=== PATIENT | female | born 1930 | race Caucasian/White ===

== ENCOUNTER 2016-07-21 23:10 | Inpatient (IN) | payer MEDICARE, BC ==
--- NOTE | 2016-07-21 23:24 | ED ---
General Adult HPI - General Stated complaint: Uncontrollable Shaking Time Seen by Provider: 07/21/16 23:10 Source: patient, family, EMS, RN notes reviewed, old records reviewed Mode of arrival: EMS - History of Present Illness Initial comments: This is an 86-year-old female with a history of asymptomatic urinary tract infections who started having shaking episodes this morning and has gotten progressively worse throughout the day. She was brought in by EMS for evaluation. She has no nausea no vomiting fevers chills sweats abdominal pain or other symptoms last time she had associated urinary tract infection. - Related Data Home Medications Medication Instructions Recorded Confirmed Atorvastatin [Lipitor] 10 mg PO DAILY 06/06/15 06/06/15 Cholecalciferol [Vitamin D3] 1,000 unit PO DAILY 06/06/15 06/06/15 Furosemide [Lasix] 20 mg PO DAILY 06/06/15 06/07/15 Multivitamins, Thera [Multivitamin] 1 tab PO DAILY 06/06/15 06/06/15 [place]-3 Fatty Acids/Fish Oil [Fish 1 cap PO DAILY 06/06/15 06/06/15 Oil 1,000 mg Softgel] Citalopram Hydrobromide [CeleXA] 20 mg PO DAILY 06/07/15 06/07/15 Lisinopril [Prinivil] 20 mg PO DAILY 06/07/15 06/07/15 Previous Rx's Medication Instructions Recorded Atorvastatin [Lipitor] 20 mg PO DAILY tab 06/11/15 Bisacodyl [Dulcolax] 5 mg PO DAILY PRN #0 tablet. 06/11/15 Ensure 1 can PO BID-W/MEALS liquid 06/11/15 Folic Acid 1 mg PO DAILY@1200 tab 06/11/15 Levofloxacin [Levaquin] 500 mg PO DAILY #4 tab 06/11/15 Meclizine [Antivert] 12.5 mg PO TID PRN #0 06/11/15 Megestrol [Megace] 80 mg PO DAILY tab 06/11/15 Metoclopramide [Reglan] 5 mg PO ACHS #120 tab 06/11/15 Multivitamins, Thera [Multivitamin] 1 each PO DAILY@1200 tab 06/11/15 Pantoprazole [Protonix] 40 mg PO AC-BID tablet. 06/11/15 Thiamine [Vitamin B-1] 100 mg PO DAILY@1200 tab 06/11/15 amLODIPine [Norvasc] 5 mg PO BID tab 06/11/15 Allergies Allergy/AdvReac Type Severity Reaction Status Date / Time No Known Allergies Allergy Verified 07/21/16 23:24 Review of Systems ROS Statement: Those systems with pertinent positive or pertinent negative responses have been documented in the HPI. ROS Other: All systems not noted in ROS Statement are negative. Past Medical History Past Medical History: Heart Failure, Hyperlipidemia, Hypertension Additional Past Medical History / Comment(s): vertigo, breast ca, rt mastectomy History of Any Multi-Drug Resistant Organisms: None Reported Past Surgical History: Breast Surgery, Orthopedic Surgery Additional Past Surgical History / Comment(s): skin patch from neck for skin CA , rt mastectomy; left hip surgery; parathyroid surgery Past Anesthesia/Blood Transfusion Reactions: No Reported Reaction Past Psychological History: Anxiety, Depression Smoking Status: Former smoker Past Alcohol Use History: None Reported Past Drug Use History: None Reported - Past Family History Father Family Medical History: CVA/TIA Mother Family Medical History: No Reported History General Exam - General Exam Comments Initial Comments: This is a well-developed well-nourished awake alert oriented 3 female she is demonstrated evidence of riggors. General appearance: alert, in no apparent distress Head exam: Present: atraumatic, normocephalic, normal inspection Eye exam: Present: normal appearance, PERRL, EOMI. Absent: scleral icterus, conjunctival injection, periorbital swelling ENT exam: Present: normal exam, mucous membranes moist Neck exam: Present: normal inspection. Absent: tenderness, meningismus, lymphadenopathy Respiratory exam: Present: normal lung sounds bilaterally. Absent: respiratory distress, wheezes, rales, rhonchi, stridor Cardiovascular Exam: Present: regular rate, normal rhythm, normal heart sounds. Absent: systolic murmur, diastolic murmur, rubs, gallop, clicks GI/Abdominal exam: Present: soft, normal bowel sounds. Absent: distended, tenderness, guarding, rebound, rigid Extremities exam: Present: normal inspection, full ROM, normal capillary refill. Absent: tenderness, pedal edema, joint swelling, calf tenderness Back exam: Present: normal inspection Neurological exam: Present: alert, oriented X3, CN II-XII intact Psychiatric exam: Present: anxious Skin exam: Present: warm, dry, intact, normal color. Absent: rash Course Vital Signs 07/21/16 23:21 Temperature 98.0 F Pulse Rate 85 Respiratory 18 Rate Blood Pressure 154/94 O2 Sat by Pulse 94 L Oximetry Medical Decision Making - Medical Decision Making Patient is feeling somewhat better I did discuss findings with her and her family patient be admitted tonight for IV antibiotics and treatment of urinary tract infection with rigors - Lab Data Result diagrams: 07/22/16 00:01 07/22/16 00:01 Lab Results 07/22/16 07/22/16 07/22/16 Range/Units 00:01 00:01 00:01 WBC 4.9 (3.8-10.6) k/uL RBC 4.41 (3.80-5.40) m/uL Hgb 14.6 (11.4-16.0) gm/dL Hct 44.8 (34.0-46.0) % MCV 101.7 H (80.0-100.0) fL MCH 33.1 (25.0-35.0) pg MCHC 32.6 (31.0-37.0) g/dL RDW 12.3 (11.5-15.5) % Plt Count 212 (150-450) k/uL Neutrophils % 62 % Lymphocytes % 25 % Monocytes % 6 % Eosinophils % 3 % Basophils % 1 % Neutrophils # 3.0 (1.3-7.7) k/uL Lymphocytes # 1.2 (1.0-4.8) k/uL Monocytes # 0.3 (0-1.0) k/uL Eosinophils # 0.2 (0-0.7) k/uL Basophils # 0.0 (0-0.2) k/uL Sodium 141 (137-145) mmol/L Potassium 3.9 (3.5-5.1) mmol/L Chloride 107 (98-107) mmol/L Carbon Dioxide 27 (22-30) mmol/L Anion Gap 7 mmol/L BUN 11 (7-17) mg/dL Creatinine 0.60 (0.52-1.04) mg/dL Est GFR (MDRD) Af Amer >60 (>60 ml/min/1.73 sqM) Est GFR (MDRD) Non-Af >60 (>60 ml/min/1.73 sqM) Glucose 100 H (74-99) mg/dL Calcium 10.2 (8.4-10.2) mg/dL Magnesium 2.2 (1.6-2.3) mg/dL Total Bilirubin 0.7 (0.2-1.3) mg/dL AST 15 (14-36) U/L ALT 24 (9-52) U/L Alkaline Phosphatase 88 (38-126) U/L Total Creatine Kinase <20 L (30-135) U/L Total Protein 6.6 (6.3-8.2) g/dL Albumin 3.7 (3.5-5.0) g/dL Urine Color Urine Appearance (Clear) Urine pH (5.0-8.0) Ur Specific [place] (1.001-1.035) Urine Protein (Negative) Urine Glucose (UA) (Negative) Urine Ketones (Negative) Urine Blood (Negative) Urine Nitrate (Negative) Urine Bilirubin (Negative) Urine Urobilinogen (<2.0) mg/dL Ur Leukocyte Esterase (Negative) Urine RBC (0-5) /hpf Urine WBC (0-5) /hpf Urine Bacteria (None) /hpf Urine Yeast (Budding) (None) /hpf 07/22/16 Range/Units 00:01 WBC (3.8-10.6) k/uL RBC (3.80-5.40) m/uL Hgb (11.4-16.0) gm/dL Hct (34.0-46.0) % MCV (80.0-100.0) fL MCH (25.0-35.0) pg MCHC (31.0-37.0) g/dL RDW (11.5-15.5) % Plt Count (150-450) k/uL Neutrophils % % Lymphocytes % % Monocytes % % Eosinophils % % Basophils % % Neutrophils # (1.3-7.7) k/uL Lymphocytes # (1.0-4.8) k/uL Monocytes # (0-1.0) k/uL Eosinophils # (0-0.7) k/uL Basophils # (0-0.2) k/uL Sodium (137-145) mmol/L Potassium (3.5-5.1) mmol/L Chloride (98-107) mmol/L Carbon Dioxide (22-30) mmol/L Anion Gap mmol/L BUN (7-17) mg/dL Creatinine (0.52-1.04) mg/dL Est GFR (MDRD) Af Amer (>60 ml/min/1.73 sqM) Est GFR (MDRD) Non-Af (>60 ml/min/1.73 sqM) Glucose (74-99) mg/dL Calcium (8.4-10.2) mg/dL Magnesium (1.6-2.3) mg/dL Total Bilirubin (0.2-1.3) mg/dL AST (14-36) U/L ALT (9-52) U/L Alkaline Phosphatase (38-126) U/L Total Creatine Kinase (30-135) U/L Total Protein (6.3-8.2) g/dL Albumin (3.5-5.0) g/dL Urine Color Light Yellow Urine Appearance Cloudy H (Clear) Urine pH 7.0 (5.0-8.0) Ur Specific [place] 1.008 (1.001-1.035) Urine Protein Negative (Negative) Urine Glucose (UA) Negative (Negative) Urine Ketones Negative (Negative) Urine Blood Negative (Negative) Urine Nitrate Positive H (Negative) Urine Bilirubin Negative (Negative) Urine Urobilinogen <2.0 (<2.0) mg/dL Ur Leukocyte Esterase Small H (Negative) Urine RBC 2 (0-5) /hpf Urine WBC 14 H (0-5) /hpf Urine Bacteria Moderate H (None) /hpf Urine Yeast (Budding) Rare H (None) /hpf - Radiology Data Radiology results: image reviewed (Acute findings) Disposition Clinical Impression: Urinary tract infection, Rigors, Failure to thrive Disposition: ADMITTED IP TO THIS [facility] Condition: Stable
[2016-07-21] MEDS ORDERED: ACETAMINOPHEN IV (For NPO) 1,000 MG in SALINE 1 100ML.BAG IVPB STA (23:25)
[2016-07-21] MEDS ORDERED: LORazepam 2 MG/ML SYRINGE IV STA (23:44)
[2016-07-22 00:14] LABS: Basophils % (A) 1 %; CH 33.1; CHCM 32.7; Eosinophils # (A) 0.2 k/uL (0-0.7); Eosinophils % (A) 3 %; HCT 44.8 % (34.0-46.0); HDW 2.27; HGB 14.6 gm/dL (11.4-16.0); Luc # (Auto) 0.16; Luc % (Auto) 3; Lymphocytes # (A) 1.2 k/uL (1.0-4.8); Lymphocytes % (A) 25 %; MCH 33.1 pg (25.0-35.0); MCHC 32.6 g/dL (31.0-37.0); MCV 101.7 fL (80.0-100.0); Mean Platelet Volume 6.9; Monocytes # (A) 0.3 k/uL (0-1.0); Monocytes % (A) 6 %; Neutrophils % (A) 62 %; RBC 4.41 m/uL (3.80-5.40); RDW 12.3 % (11.5-15.5); WBC 4.9 k/uL (3.8-10.6); WBC (Perox) 5.01
[2016-07-22 00:17] LABS: Appearance,Urine Cloudy (Clear); Bacteria,Urine Moderate /hpf; Bilirubin,Urine Negative (Negative); Glucose,Urine (UA) Negative (Negative); Ketones,Urine Negative (Negative); Leukocyte Esterase,Urine Small (Negative); Nitrite,Urine Positive (Negative); Particle Count 56282; Protein,Urine Negative (Negative); RBC,Urine 2 /hpf (0-5); Specific Gravity,Urine 1.008 (1.001-1.035); UA Billing (MACRO vs. MICRO) MICRO; Urobilinogen,Urine <2.0 mg/dL (<2.0); WBC,Urine 14 /hpf (0-5)
[2016-07-22 00:26] LABS: ALT 24 U/L (9-52); AST 15 U/L (14-36); Alkaline Phosphatase 88 U/L (38-126); Anion Gap 7 mmol/L; Blood Urea Nitrogen 11 mg/dL (7-17); Calcium 10.2 mg/dL (8.4-10.2); Carbon Dioxide 27 mmol/L (22-30); Chloride 107 mmol/L (98-107); Glucose 100 mg/dL (74-99); Magnesium 2.2 mg/dL (1.6-2.3); Non-African American GFR(MDRD) >60 (>60 ml/min/1.73 sqM); Potassium 3.9 mmol/L (3.5-5.1); Sodium 141 mmol/L (137-145); Total Bilirubin 0.7 mg/dL (0.2-1.3); Total Protein 6.6 g/dL (6.3-8.2)
[2016-07-22 00:39] LABS: Creatine Kinase <20 U/L (30-135)
[2016-07-22] MEDS ORDERED: NALOXONE 0.4 MG/ML 1 ML VIAL IV PRN (00:48)
[2016-07-22] MEDS ORDERED: ONDANSETRON 4 MG/2 ML VIAL IVP PRN (00:48)
[2016-07-22] MEDS ORDERED: ACETAMINOPHEN TAB 325 MG TAB PO PRN (00:48)
[2016-07-22 00:49] LABS: Creatine Kinase MB <0.2 ng/mL (0.0-2.4)
[2016-07-22] MEDS ORDERED: MECLIZINE 12.5 MG TAB PO PRN (00:50)
[2016-07-22] MEDS ORDERED: SODIUM CHLORIDE 0.9% 1,000 ML IV SCH (01:00)
--- NOTE | 2016-07-22 01:14 | XR ---
EXAMINATION TYPE: XR chest 2V DATE OF EXAM: 07/22/2016 12:58 AM COMPARISON: 06/06/2015 HISTORY: Cough TECHNIQUE: Frontal and lateral views of the chest are obtained. FINDINGS: There is no heart failure nor confluent pneumonic infiltrate. Thoracic aorta is atheromato us. There are no hilar masses. There is some thoracic scoliotic curvature. There is no pleural effusi on. IMPRESSION: Atheromatous aorta. No active cardiopulmonary disease. Mild pulmonary fibrotic changes.
[2016-07-22 02:06] LABS: Glucose,Whole Blood 103 mg/dL (75-99)
[2016-07-22 02:18] VITALS: BMI 19.8
[2016-07-22] MEDS ORDERED: PANTOPRAZOLE 40 MG TABLET PO SCH (07:30)
[2016-07-22 07:41] LABS: Glucose,Whole Blood 81 mg/dL (75-99)
[2016-07-22 08:03] VITALS: BP 136/78; PULSE 60; RESP 17; TEMP 96.4
[2016-07-22] MEDS ORDERED: NON-FORMULARY DRUG (Omega-3 Fatty Acids/Fish Oil [Fish Oil 1,000 Mg Softgel] 1 CAP) PO SCH (09:00)
[2016-07-22] MEDS ORDERED: CITALOPRAM HYDROBROMIDE 20 MG TAB PO SCH (09:00)
[2016-07-22] MEDS ORDERED: amLODIPine 5 MG TAB PO SCH (09:00)
[2016-07-22] MEDS ORDERED: ATORVASTATIN 20 MG TAB PO SCH (09:00)
[2016-07-22] MEDS ORDERED: LISINOPRIL 20 MG TAB PO SCH (09:00)
[2016-07-22] MEDS ORDERED: ATORVASTATIN 10 MG TAB PO SCH (09:00)
[2016-07-22] MEDS ORDERED: MEGESTROL 40 MG TAB PO SCH (09:00)
[2016-07-22] MEDS ORDERED: FUROSEMIDE 20 MG TAB PO SCH (09:00)
[2016-07-22] MEDS ORDERED: FLUCONAZOLE 100 MG TAB PO ONE (11:47)
[2016-07-22] MEDS ORDERED: THIAMINE 100 MG TAB PO SCH (12:00)
[2016-07-22 12:10] LABS: Glucose,Whole Blood 127 mg/dL (75-99)
--- NOTE | 2016-07-22 12:41 | HP ---
This dictation is both H&P and Discharge Summary. DATE OF ADMISSION: Patient is a pleasant 86-year-old female, has significant asymptomatic urinary tract infections in the past, came in with complaints of shaking. Patient denied any fevers. Patient denied any dysuria. Patient denied any nausea or vomiting. Patient does have moderate to severe dementia. Patient's baseline is alert and oriented x2. Patient is now alert and oriented x2. Patient is afebrile. Patient does not have any leukocytosis. Minimally abnormal. I have very low suspicion of urinary tract infection. Patient's family has significant concerns about UTI, because of which I will give her benefit of doubt and give her 3 days and antibiotic but I still believe it is mostly asymptomatic bacteria. Patient has jenelle in the urine. I will give a dose of fluconazole. Patient probably has vaginal candidiasis and follow with the primary care physician as an outpatient. Patient does not have a Cardoso catheter at this point of time. I will give her 3 more days of Cipro completed a total 5-day course of therapy even if she has urinary tract infection, although as mentioned above, my suspicion is significantly low. Patient denied any cough. Chest x-ray did not show any significant abnormality and patient has a 24/7 help at the facility where she lives, because of which family wants her to go to the same place. Initially ordered PT and OT evaluation. Apparently, patient is doing well there with care she has there at the facility. ROS: All Other systems were reviewed and were negative. Patient will be discharged today and home medications include: 1. Atorvastatin. 2. Cholecalciferol. 3. Lasix. 4. Multivitamin. 5. [place]-3 fatty acids. 6. Citalopram. 7. Lisinopril. 8. Atorvastatin. 9. Bisacodyl. 10. Folic acid. 11. Meclizine. 12. Megestrol. 13. Metoclopramide. 14. Multivitamin. 15. Pantoprazole. 16. Thiamine. 17. Amlodipine. ALLERGIES: No known drug allergies. PAST MEDICAL HISTORY: Significant for congestive heart failure, hyperlipidemia, hypertension, back surgery, orthopedic surgery, anxiety, depression. Former smoker. Denied any alcohol abuse or any drug abuse. FAMILY HISTORY: CVA, TIA in the past. PHYSICAL EXAMINATION: VITAL SIGNS: Temperature 96.4, pulse of 60, respiratory rate of 17, blood pressure 136/78, saturating at 94% on room air. GENERAL: Alert and oriented x2, which is her baseline. No focal neurological deficits were appreciated. HEENT: Pupils are round and equally reacting to light. EOMI. No scleral icterus. No conjunctival pallor. Normocephalic, atraumatic. No pharyngeal erythema. No thyromegaly. CARDIOVASCULAR: S1 and S2 present. No murmurs, rubs, or gallops. PULMONARY: Chest is clear to auscultation, no wheezing or crackles. ABDOMEN: Soft, nontender, nondistended, normoactive bowel sounds. No palpable organomegaly. MUSCULOSKELETAL: No joint swelling or deformity. EXTREMITIES: No cyanosis, clubbing, or pedal edema. NEUROLOGICAL: Gross neurological examination did not reveal any focal deficits. SKIN: No rashes. LABORATORY DATA: CBC, CMP essentially within normal limits. UA showed mild positive nitrate and small leukocyte esterase, moderate bacteria and budding yeast. ASSESSMENT AND PLAN: 1. Possibility of urinary tract infection. Patient mostly has asymptomatic bacteria. My suspicion is significantly low for urinary tract infection but anyways because of the concerns of family, I will go ahead and give her 3 more days of antibiotic, Cipro. Patient has Escherichia coli in the past which is pansensitive. Although at the time, patient received levofloxacin and for budding yeast in the urine, I will give her a dose of fluconazole. I think patient has vaginal candidiasis. 2. Macrocytic anemia. I will obtain a B12 level. If needs, will give her a B12 injection which is pretty common in people of her age. 3. Moderate to severe dementia, supportive care and continue with home medication that is donepezil. 4. Hypertension. 5. Hyperlipidemia for which patient can continue her home medications. 6. Depression. Continue with Celexa. Patient's primary care physician, Dr. Deanna Ramirez. Patient will follow Dr. Ramirez in about 3 to 7 days. Activity as tolerated. Cardiac diet. MTDD
== END 2016-07-22 13:47 | disposition home health service (06) | DRG 690 ==
LOC: EC 23:10 → 4MS4W 07-22 00:48
PROVIDERS: ADMIT Internal Medicine; ATTEND Internal Medicine
DX: N39.0 Urinary tract infection, site not specified (principal); F03.90 Unspecified dementia, unspecified severity, without behavioral disturbance, psychotic disturbance, mood disturbance, and anxiety; I11.0 Hypertensive heart disease with heart failure; I50.9 Heart failure, unspecified; B37.3 Candidiasis of vulva and vagina; D53.9 Nutritional anemia, unspecified; F32.9 Major depressive disorder, single episode, unspecified; F41.9 Anxiety disorder, unspecified; R62.7 Adult failure to thrive; Z87.891 Personal history of nicotine dependence; Z87.440 Personal history of urinary (tract) infections; E78.5 Hyperlipidemia, unspecified; Z85.3 Personal history of malignant neoplasm of breast; Z90.11 Acquired absence of right breast and nipple; Z79.899 Other long term (current) drug therapy
CPT/HCPCS: 36415; 71020; 80053; 81001; 82550; 82553; 82607; 83735; 85025; 87040; 87077; 87086; 87186; 96365; 96375; 99285

== ENCOUNTER 2016-08-01 10:02 | Inpatient (IN) | payer MEDICARE, BC ==
[2016-08-01] MEDS ORDERED: SODIUM CHLORIDE 0.9% 1,000 ML IV STA (10:13)
[2016-08-01] MEDS ORDERED: LORazepam 2 MG/ML SYRINGE IV STA (10:14)
[2016-08-01] MEDS ORDERED: ACETAMINOPHEN IV (For NPO) 1,000 MG in EMPTY BAG 1 BAG IVPB STA (10:32)
--- NOTE | 2016-08-01 10:32 | ED ---
General Adult HPI - General Chief complaint: Recheck/Abnormal Lab/Rx Stated complaint: Tremors Time Seen by Provider: 08/01/16 10:04 Source: family, EMS, RN notes reviewed, old records reviewed Mode of arrival: EMS Limitations: no limitations - History of Present Illness Initial comments: This is an 86-year-old female the ER for evaluation, patient is currently in the ER for evaluation of rigors, tremors, weakness failure to thrive and dehydration. Patient brought in by EMS who were called by family for probable failure of outpatient treatment urinary tract infection. Patient has had episodic fever at home with nausea no vomiting and his decreased activity level. Patient did finish outpatient antibiotics for urinary checked infection. Rigors and tremor started today, patient is also on Celexa but has never had reactions in the past - Related Data Home Medications Medication Instructions Recorded Confirmed Multivitamins, Thera [Multivitamin] 1 tab PO DAILY 06/06/15 08/01/16 Citalopram Hydrobromide [CeleXA] 20 mg PO DAILY 06/07/15 08/01/16 Lisinopril [Prinivil] 20 mg PO DAILY 06/07/15 08/01/16 Donepezil HCl [Aricept] 5 mg PO DAILY 07/22/16 08/01/16 Cholecalciferol [Vitamin D3] 2,000 unit PO DAILY 08/01/16 08/01/16 Docusate [Colace] 100 mg PO DAILY 08/01/16 08/01/16 Meclizine HCl 12.5 mg PO TID PRN 08/01/16 08/01/16 Previous Rx's Medication Instructions Recorded amLODIPine [Norvasc] 5 mg PO BID tab 06/11/15 Allergies Allergy/AdvReac Type Severity Reaction Status Date / Time No Known Allergies Allergy Verified 08/01/16 11:02 Review of Systems ROS Statement: Those systems with pertinent positive or pertinent negative responses have been documented in the HPI. ROS Other: All systems not noted in ROS Statement are negative. Past Medical History Past Medical History: Heart Failure, Hyperlipidemia, Hypertension Additional Past Medical History / Comment(s): vertigo, breast ca, rt mastectomy History of Any Multi-Drug Resistant Organisms: None Reported Past Surgical History: Breast Surgery, Orthopedic Surgery Additional Past Surgical History / Comment(s): skin patch 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 Past Anesthesia/Blood Transfusion Reactions: No Reported Reaction Past Psychological History: Anxiety, Depression Smoking Status: Former smoker Past Alcohol Use History: None Reported Past Drug Use History: None Reported - Past Family History Father Family Medical History: CVA/TIA Mother Family Medical History: No Reported History General Exam Limitations: no limitations General appearance: alert, in no apparent distress, anxious, in distress, cachectic Head exam: Present: atraumatic, normocephalic, normal inspection Eye exam: Present: normal appearance, PERRL, EOMI. Absent: scleral icterus, conjunctival injection, periorbital swelling ENT exam: Present: normal exam, mucous membranes moist Neck exam: Present: normal inspection. Absent: tenderness, meningismus, lymphadenopathy Respiratory exam: Present: normal lung sounds bilaterally. Absent: respiratory distress, wheezes, rales, rhonchi, stridor Cardiovascular Exam: Present: regular rate, normal rhythm, normal heart sounds. Absent: systolic murmur, diastolic murmur, rubs, gallop, clicks GI/Abdominal exam: Present: soft, normal bowel sounds. Absent: distended, tenderness, guarding, rebound, rigid Extremities exam: Present: normal inspection, full ROM, normal capillary refill. Absent: tenderness, pedal edema, joint swelling, calf tenderness Back exam: Present: normal inspection Neurological exam: Present: alert, oriented X3, CN II-XII intact Psychiatric exam: Present: normal affect, normal mood Skin exam: Present: warm, dry, intact, normal color. Absent: rash Course Vital Signs 08/01/16 08/01/16 10:05 12:39 Temperature 100.0 F H 98.0 F Pulse Rate 76 61 Respiratory 16 16 Rate Blood Pressure 137/69 132/60 O2 Sat by Pulse 95 93 L Oximetry - Reevaluation(s) Reevaluation #1: 08/01/16 11:54 Patient does appear to be symptomatically improved at this time Medical Decision Making - Medical Decision Making 86 female in the ER for evaluation of rigors weakness not feeling well and failure to thrive. Patient recently diagnosed with urinary tract infection which caused her very similar symptoms. At this time although patient's infection does appear to be cleared up she does still of persistent fever and rigors from fever. Patient be admitted for fever control and symptomatic management as well as further evaluation of cause a fever. X-ray of fluor at this point negative - Lab Data Result diagrams: 08/01/16 11:17 08/01/16 10:50 Lab Results 08/01/16 08/01/16 08/01/16 Range/Units 10:50 10:50 11:17 WBC 5.0 (3.8-10.6) k/uL RBC 4.15 (3.80-5.40) m/uL Hgb 13.6 (11.4-16.0) gm/dL Hct 42.6 (34.0-46.0) % MCV 102.6 H (80.0-100.0) fL MCH 32.7 (25.0-35.0) pg MCHC 31.9 (31.0-37.0) g/dL RDW 12.2 (11.5-15.5) % Plt Count 206 (150-450) k/uL Neutrophils % 67 % Lymphocytes % 23 % Monocytes % 5 % Eosinophils % 2 % Basophils % 1 % Neutrophils # 3.3 (1.3-7.7) k/uL Lymphocytes # 1.1 (1.0-4.8) k/uL Monocytes # 0.3 (0-1.0) k/uL Eosinophils # 0.1 (0-0.7) k/uL Basophils # 0.0 (0-0.2) k/uL Macrocytosis Slight Sodium 142 (137-145) mmol/L Potassium 4.9 (3.5-5.1) mmol/L Chloride 108 H (98-107) mmol/L Carbon Dioxide 27 (22-30) mmol/L Anion Gap 7 mmol/L BUN 14 (7-17) mg/dL Creatinine 0.60 (0.52-1.04) mg/dL Est GFR (MDRD) Af Amer >60 (>60 ml/min/1.73 sqM) Est GFR (MDRD) Non-Af >60 (>60 ml/min/1.73 sqM) Glucose 87 (74-99) mg/dL Calcium 10.6 H (8.4-10.2) mg/dL Phosphorus 3.6 (2.5-4.5) mg/dL Magnesium 2.4 H (1.6-2.3) mg/dL Total Bilirubin 1.1 (0.2-1.3) mg/dL AST 23 (14-36) U/L ALT 18 (9-52) U/L Alkaline Phosphatase 74 (38-126) U/L Total Creatine Kinase 32 (30-135) U/L CK-MB (CK-2) <0.2 (0.0-2.4) ng/mL CK-MB (CK-2) Rel Index Total Protein 7.0 (6.3-8.2) g/dL Albumin 4.0 (3.5-5.0) g/dL Urine Color Urine Appearance (Clear) Urine pH (5.0-8.0) Ur Specific [place] (1.001-1.035) Urine Protein (Negative) Urine Glucose (UA) (Negative) Urine Ketones (Negative) Urine Blood (Negative) Urine Nitrate (Negative) Urine Bilirubin (Negative) Urine Urobilinogen (<2.0) mg/dL Ur Leukocyte Esterase (Negative) 08/01/16 Range/Units 11:40 WBC (3.8-10.6) k/uL RBC (3.80-5.40) m/uL Hgb (11.4-16.0) gm/dL Hct (34.0-46.0) % MCV (80.0-100.0) fL MCH (25.0-35.0) pg MCHC (31.0-37.0) g/dL RDW (11.5-15.5) % Plt Count (150-450) k/uL Neutrophils % % Lymphocytes % % Monocytes % % Eosinophils % % Basophils % % Neutrophils # (1.3-7.7) k/uL Lymphocytes # (1.0-4.8) k/uL Monocytes # (0-1.0) k/uL Eosinophils # (0-0.7) k/uL Basophils # (0-0.2) k/uL Macrocytosis Sodium (137-145) mmol/L Potassium (3.5-5.1) mmol/L Chloride (98-107) mmol/L Carbon Dioxide (22-30) mmol/L Anion Gap mmol/L BUN (7-17) mg/dL Creatinine (0.52-1.04) mg/dL Est GFR (MDRD) Af Amer (>60 ml/min/1.73 sqM) Est GFR (MDRD) Non-Af (>60 ml/min/1.73 sqM) Glucose (74-99) mg/dL Calcium (8.4-10.2) mg/dL Phosphorus (2.5-4.5) mg/dL Magnesium (1.6-2.3) mg/dL Total Bilirubin (0.2-1.3) mg/dL AST (14-36) U/L ALT (9-52) U/L Alkaline Phosphatase (38-126) U/L Total Creatine Kinase (30-135) U/L CK-MB (CK-2) (0.0-2.4) ng/mL CK-MB (CK-2) Rel Index Total Protein (6.3-8.2) g/dL Albumin (3.5-5.0) g/dL Urine Color Yellow Urine Appearance Clear (Clear) Urine pH 6.0 (5.0-8.0) Ur Specific [place] 1.012 (1.001-1.035) Urine Protein Negative (Negative) Urine Glucose (UA) Negative (Negative) Urine Ketones Negative (Negative) Urine Blood Negative (Negative) Urine Nitrate Negative (Negative) Urine Bilirubin Negative (Negative) Urine Urobilinogen <2.0 (<2.0) mg/dL Ur Leukocyte Esterase Negative (Negative) - Radiology Data Radiology results: report reviewed (Chest x-ray negative for acute disease), image reviewed Disposition Clinical Impression: Weakness, Rigors, Hypercalcemia, Hypermagnesemia Disposition: ADMITTED IP TO THIS [facility] Condition: Fair
[2016-08-01] MEDS ORDERED: KETOROLAC 30 MG/ML 1 ML VIAL IVP STA (11:05)
[2016-08-01 11:17] LABS: ALT 18 U/L (9-52); AST 23 U/L (14-36); Alkaline Phosphatase 74 U/L (38-126); Anion Gap 7 mmol/L; Blood Urea Nitrogen 14 mg/dL (7-17); Calcium 10.6 mg/dL (8.4-10.2); Carbon Dioxide 27 mmol/L (22-30); Chloride 108 mmol/L (98-107); Glucose 87 mg/dL (74-99); Magnesium 2.4 mg/dL (1.6-2.3); Non-African American GFR(MDRD) >60 (>60 ml/min/1.73 sqM); Phosphorous 3.6 mg/dL (2.5-4.5); Potassium 4.9 mmol/L (3.5-5.1); Sodium 142 mmol/L (137-145); Total Bilirubin 1.1 mg/dL (0.2-1.3)
[2016-08-01 11:27] LABS: Creatine Kinase 32 U/L (30-135)
[2016-08-01 11:34] LABS: Basophils % (A) 1 %; CH 32.5; CHCM 31.8; Eosinophils # (A) 0.1 k/uL (0-0.7); Eosinophils % (A) 2 %; HCT 42.6 % (34.0-46.0); HDW 2.15; HGB 13.6 gm/dL (11.4-16.0); Luc # (Auto) 0.14; Luc % (Auto) 3; Lymphocytes # (A) 1.1 k/uL (1.0-4.8); Lymphocytes % (A) 23 %; MCH 32.7 pg (25.0-35.0); MCHC 31.9 g/dL (31.0-37.0); MCV 102.6 fL (80.0-100.0); Macrocytosis Slight; Mean Platelet Volume 6.7; Monocytes # (A) 0.3 k/uL (0-1.0); Monocytes % (A) 5 %; Neutrophils # (A) 3.3 k/uL (1.3-7.7); Neutrophils % (A) 67 %; RBC 4.15 m/uL (3.80-5.40); RDW 12.2 % (11.5-15.5); WBC (Perox) 5.25
[2016-08-01 11:37] LABS: Creatine Kinase MB <0.2 ng/mL (0.0-2.4)
[2016-08-01 11:51] LABS: Appearance,Urine Clear (Clear); Bilirubin,Urine Negative (Negative); Glucose,Urine (UA) Negative (Negative); Ketones,Urine Negative (Negative); Leukocyte Esterase,Urine Negative (Negative); Nitrite,Urine Negative (Negative); Protein,Urine Negative (Negative); Specific Gravity,Urine 1.012 (1.001-1.035); UA Billing (MACRO vs. MICRO) CHEM; Urobilinogen,Urine <2.0 mg/dL (<2.0)
[2016-08-01] MEDS ORDERED: SODIUM CHLORIDE 0.9% 1,000 ML IV ONE (11:57)
--- NOTE | 2016-08-01 13:13 | XR ---
EXAMINATION TYPE: XR chest 2V DATE OF EXAM: 08/01/2016 1:06 PM COMPARISON: Two-view chest x-ray July 22, 2016 HISTORY: Tremors and chest pain. TECHNIQUE: Frontal and lateral views of the chest are obtained. FINDINGS: There is chronic senescent change without suspicious air space opacity, pleural effusion, or pneumothorax seen. The cardiac silhouette size is enlarged with atherosclerotic and ectatic thora cic aorta. The osseous structures are demineralized. Underlying scoliosis is redemonstrated. High r iding right humeral head suggests chronic rotator cuff tear. Numerous surgical clips over left chest are redemonstrated. IMPRESSION: Chronic changes and cardiomegaly without acute pulmonary process. No significant change from prior.
[2016-08-01] MEDS ORDERED: LORazepam 2 MG/ML SYRINGE IV PRN (13:15)
[2016-08-01] MEDS ORDERED: diphenhydrAMINE 50 MG/ML 1 ML VIAL IVP PRN (13:15)
[2016-08-01] MEDS ORDERED: MECLIZINE 12.5 MG TAB PO PRN (16:16)
[2016-08-01] MEDS: amLODIPine 5 MG TAB PO SCH (20:53)
[2016-08-02] MEDS: amLODIPine 5 MG TAB PO SCH ×2 (08:42→21:29)
[2016-08-02] MEDS: LISINOPRIL 20 MG TAB PO SCH (08:43)
[2016-08-02] MEDS: ENOXAPARIN 40 MG/0.4 ML SYRINGE SQ SCH (08:43)
[2016-08-02] MEDS ORDERED: DONEPEZIL 5 MG TAB PO SCH (09:00)
[2016-08-02] MEDS ORDERED: CHOLECALCIFEROL 1,000 UNIT TAB PO SCH (09:00)
[2016-08-02] MEDS ORDERED: CITALOPRAM HYDROBROMIDE 20 MG TAB PO SCH (09:00)
[2016-08-02] MEDS ORDERED: DOCUSATE 100 MG CAP PO SCH (09:00)
[2016-08-02 10:40] VITALS: BMI 21.7
[2016-08-02] MEDS: MULTIVITAMINS, THERA 1 EACH TAB PO SCH (11:57)
[2016-08-02] MEDS: PRIMIDONE 25 MG TAB PO SCH ×3 (12:54→21:29)
--- NOTE | 2016-08-02 15:23 | HP ---
DATE OF ADMISSION: 08/01/2016 PRESENTING COMPLAINT: Restless shaking. HISTORY OF PRESENTING COMPLAINT: This is an 86-year-old patient of Dr. Ramirez. The patient was recently in the hospital and treated for UTI and did complete a course of antibiotics. The patient has a history of dementia, hypertension, hyperlipidemia, depression. Patient lives at [facility]. Patient has been having some episodes where she is shaking. She is more like what is described as jittery. The patient is able to talk comfortably, She is rather confused, but she is fully alert and awake. The patient's UA came back negative. She was empirically put in the ER on IV antibiotics. The patient's appetite is good. Denies any obvious pain. When answering questions she drifts off easily. REVIEW OF SYSTEMS: CONSTITUTIONAL: Tired. HEENT: None. RESPIRATORY: None. CARDIOVASCULAR: None. GASTROINTESTINAL: None. GENITOURINARY: None. MUSCULOSKELETAL: Some pain in the joints. DERMATOLOGICAL: Dry skin. HEMATOLOGICAL: None. LYMPHATICS: None. PSYCHIATRY: Forgetful. NEUROLOGICAL: Just generalized shaking. INVESTIGATIONS: White count 5, hemoglobin 10.6, potassium 4.9. BUN and creatinine are normal. UA is negative. Influenza negative. Chest x-ray shows some chronic changes. ASSESSMENT: 1. Advancing Alzheimer's dementia, late onset type, maybe with some psychosis as she is finding people around. 2. Essential hypertension. 3. Hyperlipidemia. 4. Depression, not otherwise specified. 5. Akathisia. HOME MEDICATIONS: 1. Colace 100 mg a day. 2. Vitamin D3 2000 units a day. 3. Multivitamin 1 tablet p.o. daily. 4. Celexa 20 mg p.o. daily. 5. Meclizine 12.5 p.o. t.i.d. p.r.n. 6. Prinivil 20 mg p.o. daily. 7. Aricept 5 mg p.o. daily. 8. Norvasc 5 mg p.o. b.i.d. ALLERGIES: None. PLAN: Patient's home medications will be continued. Will discontinue the Colace. Will also DC the meclizine and the Aricept. That may be having effects of the anticholinergic effect. Will try some primidone. 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 Patient did tolerate her breakfast.
[2016-08-02] MEDS: QUEtiapine 25 MG TAB PO SCH (21:30)
[2016-08-03] MEDS: ENOXAPARIN 40 MG/0.4 ML SYRINGE SQ SCH (10:48)
[2016-08-03] MEDS: PRIMIDONE 25 MG TAB PO SCH ×3 (10:49→21:00)
[2016-08-03] MEDS: amLODIPine 5 MG TAB PO SCH ×2 (10:49→20:21)
[2016-08-03] MEDS: MULTIVITAMINS, THERA 1 EACH TAB PO SCH (10:49)
[2016-08-03] MEDS: LISINOPRIL 20 MG TAB PO SCH (10:49)
[2016-08-03] MEDS: FUROSEMIDE 40 MG TAB PO SCH (19:03)
[2016-08-03] MEDS: SODIUM CHLORIDE 0.9% 1,000 ML IV SCH (19:04)
--- NOTE | 2016-08-03 19:08 | PN ---
DATE OF SERVICE: 08/03/2016 Presenting complaint: Restlessness. INTERVAL HISTORY: This is a patient presented with increasing confusion, ( ) restlessness, and I started the patient yesterday on primidone, with shaking is improved. The patient had underlying dementia and coronary disorder. The patient's two daughters at the bedside. Review of systems done for constitutional, cardiovascular, GI and pulmonary. The patient is eating well. Current medications are reviewed that include Mysoline and Seroquel at night. On examination, temperature 98, pulse 99, respiratory rate 20, blood pressure 101/69, pulse ox 93% on 2 liters. GENERAL APPEARANCE: Lying in bed, more comfortable. EYES: Pupils equal. Conjunctivae normal. NECK: JVD not raised. Mass not palpable. RESPIRATORY: Effort normal. LUNGS: Clear. CARDIOVASCULAR: First and second sounds normal. No edema. ABDOMEN: Soft, nontender. PSYCHIATRY: Patient is confused. NEUROLOGICAL: More rested. INVESTIGATIONS: Patient's ionized calcium has come back as 6. ASSESSMENT: 1. Hypercalcemia talking to family, patient does seem to have a history of hyperparathyroidism and this could manifest as cognitive dysfunction. 2. Advancing Alzheimer's dementia, late onset type, some element of psychosis. 3. Essential hypertension. 4. Hyperlipidemia. 5. Depression, not otherwise specified. 6. ( ) improving with methadone. PLAN: Will start the patient on IV fluids, 125 mL an hour with Lasix that has helped to get the calcium down. We will also consult Dr. Leslie Ruiz who did prior surgery. Patient's family not sure if hyperparathyroidism is corrected. Will also check patient's parathyroid hormone level along with a phosphorus level to aide in the primary secondary diagnosis if true. Patient family does say that patient has not been taking vitamin supplementation. Care was discussed in detail. Check labs in the morning.
--- NOTE | 2016-08-03 20:08 | P.GSCN ---
History of Present Illness Consult date: 08/03/16 Reason for Consult: Elevated calcium History of present illness: the patient is an 86-year-old white female who recently was noted to have shaking. She was recently treated for a UTI and completed a course of antibiotics. She has a history of dementia and depression hypertension and hyperlipidemia. She lives at [facility] . She recently came back to the hospital secondary to shaking. The patient is unable to give a history. Review of Systems ROS unobtainable: due to mental status - Constitutional Constitutional Comment(s): Shaking - Cardiovascular Reports as per HPI - Respiratory Reports as per HPI - Gastrointestinal Reports as per HPI - Genitourinary Genitourinary: Reports as per HPI - Neurological Neurologic Comment(s): depressions/shaking - Endocrine Endocrine Comment(s): States many years ago had a neck surgery presumably for hyperparathyroidism Past Medical History Past Medical History: Heart Failure, Hyperlipidemia, Hypertension Additional Past Medical History / Comment(s): vertigo, breast ca, rt mastectomy History of Any Multi-Drug Resistant Organisms: None Reported Past Surgical History: Breast Surgery, Orthopedic Surgery Additional Past Surgical History / Comment(s): skin patch 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 Past Anesthesia/Blood Transfusion Reactions: No Reported Reaction Past Psychological History: Anxiety, Depression Additional Psychological History / Comment(s): Pt resides at [facility] Living in an apartment. She has [facility] home care. Her daughters come over daily and give her lunch and shower her. She has an aide in the morning twice a day. She has a 4 wheeled walker to ambulate. Her family takes her to [facility]. She is also receiving OT/PT and nursing. Smoking Status: Former smoker Past Alcohol Use History: None Reported Additional Past Alcohol Use History / Comment(s): Pt was a "social smoker". She quit smoking in 1966. Past Drug Use History: None Reported - Past Family History Father Family Medical History: CVA/TIA Additional Family Medical History / Comment(s): Father of a CVA in his mid to late 70's. Mother Family Medical History: No Reported History Additional Family Medical History / Comment(s): Mother was healthy and lived to be 87/88 yrs old. Medications and Allergies Home Medications Medication Instructions Recorded Confirmed Type Multivitamins, Thera [Multivitamin] 1 tab PO DAILY 06/06/15 08/01/16 History Citalopram Hydrobromide [CeleXA] 20 mg PO DAILY 06/07/15 08/01/16 History Lisinopril [Prinivil] 20 mg PO DAILY 06/07/15 08/01/16 History Donepezil HCl [Aricept] 5 mg PO DAILY 07/22/16 08/01/16 History Cholecalciferol [Vitamin D3] 2,000 unit PO DAILY 08/01/16 08/01/16 History Docusate [Colace] 100 mg PO DAILY 08/01/16 08/01/16 History Meclizine HCl 12.5 mg PO TID PRN 08/01/16 08/01/16 History Allergies Allergy/AdvReac Type Severity Reaction Status Date / Time No Known Allergies Allergy Verified 08/01/16 11:02 Surgical - Exam Vital Signs Temp Pulse Resp BP Pulse Ox 100.0 F H 76 16 155/111 95 08/01/16 10:05 08/01/16 10:05 08/01/16 10:05 08/01/16 10:05 08/01/16 10:05 - General no distress, cachectic - Eyes normal ocular movement - ENT normal pinna, normal nares - Neck no masses, trachea midline, no lymphadectomy - Respiratory normal expansion, normal respiratory effort, clear to auscultation - Cardiovascular Rhythm: regular Heart Sounds: normal: S1, S2 - Abdomen Abdomen: soft, non tender - Psychiatric Unable to give history Results - Labs 08/01/16 11:17 08/01/16 10:50 Abnormal Lab Results - Last 24 Hours (Table) 08/03/16 Range/Units 07:46 Ionized Calcium Yobani 6.0 H* (4.5-5.3) mg/dL Calcium panel 08/03/16 08/03/16 Range/Units 07:46 07:46 Ionized Calcium Yobani 6.0 H* (4.5-5.3) mg/dL Phosphorus 3.0 (2.5-4.5) mg/dL Assessment and Plan Plan: Impression/plan: 1. 86-year-old patient admitted with shaking 2. Dementia 3. History of parathyroid disease in the past at this time calcium 10.6 and ionized calcium 6 Plan: 1. Right attempt to obtain operative reports 2. We will obtain parathyroid hormone level 3. Will follow with you
[2016-08-03] MEDS: QUEtiapine 25 MG TAB PO SCH (20:21)
[2016-08-04] MEDS: SODIUM CHLORIDE 0.9% 1,000 ML IV SCH ×3 (04:06→19:36)
[2016-08-04 08:59] LABS: ALT 20 U/L (9-52); AST 16 U/L (14-36); Alkaline Phosphatase 47 U/L (38-126); Anion Gap 7 mmol/L; Blood Urea Nitrogen 16 mg/dL (7-17); Calcium 9.5 mg/dL (8.4-10.2); Carbon Dioxide 24 mmol/L (22-30); Chloride 111 mmol/L (98-107); Glucose 88 mg/dL (74-99); Non-African American GFR(MDRD) >60 (>60 ml/min/1.73 sqM); Sodium 142 mmol/L (137-145); Total Bilirubin 0.6 mg/dL (0.2-1.3); Total Protein 5.5 g/dL (6.3-8.2)
[2016-08-04] MEDS: PRIMIDONE 25 MG TAB PO SCH ×2 (10:10→17:09)
[2016-08-04] MEDS: amLODIPine 5 MG TAB PO SCH ×2 (10:11→20:09)
[2016-08-04] MEDS: FUROSEMIDE 40 MG TAB PO SCH (10:11)
[2016-08-04] MEDS: LISINOPRIL 20 MG TAB PO SCH (10:11)
[2016-08-04] MEDS: ENOXAPARIN 40 MG/0.4 ML SYRINGE SQ SCH (10:11)
[2016-08-04] MEDS: MULTIVITAMINS, THERA 1 EACH TAB PO SCH (14:43)
[2016-08-04] MEDS: QUEtiapine 25 MG TAB PO SCH (20:09)
[2016-08-05] MEDS: SODIUM CHLORIDE 0.9% 1,000 ML IV SCH ×3 (02:45→16:20)
--- NOTE | 2016-08-05 08:20 | PN ---
DATE OF SERVICE: 08/04/2016 PRESENTING COMPLAINT: Hypercalcemia. INTERVAL HISTORY: This patient presented with increasing confusion, restlessness, found to be hypercalcemic. The patient is started on IV fluids and calcium. Two daughters at the bedside. The patient cognitive function is somewhat better per the daughter. Patient is put on primidone, doing better with that. Review of systems done for constitutional, cardiovascular, GI, pulmonary; relevant findings as above. ( ). On examination, temperature 98.1, pulse 54, respiration 18, blood pressure 139/70, pulse ox 95% on room air. GENERAL APPEARANCE: Lying in bed, more comfortable. EYES: Pupils equal. Conjunctivae normal. NECK: JVD not raised. Mass not palpable. RESPIRATORY: Effort normal. Lungs are clear. CARDIOVASCULAR: First and second sounds normal. No edema. ABDOMEN: Soft. PSYCHIATRY: Patient is less confused today, more restful. NEUROLOGICAL: No tremors. INVESTIGATIONS: Calcium 9.5. ASSESSMENT: 1. Hypercalcemia causing, pulmonary dysfunction, actually improving. 2. Advance Alzheimer's dementia, late onset type. 3. Essential hypertension. 4. Hyperlipidemia. 5. Depression, not otherwise specified. 6. Tremors improved with Primidone. I had a long talk with the patient and family at the bedside. Dr. Leslie Woodall will give information about if parathyroid ( ) surgery was done. Check ( ) calcium tomorrow morning. Will stop the Primidone and see if the tremors are related to the hypercalcemia or if Primidone is actually needed. Continue with current IV fluids and follow.
[2016-08-05 09:45] LABS: Ionized Calcium 5.7 mg/dL (4.5-5.3)
[2016-08-05] MEDS: ENOXAPARIN 40 MG/0.4 ML SYRINGE SQ SCH (10:16)
[2016-08-05] MEDS: FUROSEMIDE 40 MG TAB PO SCH ×2 (10:16→18:22)
[2016-08-05] MEDS: LISINOPRIL 20 MG TAB PO SCH (10:16)
[2016-08-05] MEDS: MULTIVITAMINS, THERA 1 EACH TAB PO SCH (10:16)
[2016-08-05] MEDS: amLODIPine 5 MG TAB PO SCH ×2 (10:17→21:38)
[2016-08-05 10:20] LABS: ALT 21 U/L (9-52); AST 30 U/L (14-36); Alkaline Phosphatase 49 U/L (38-126); Anion Gap 7 mmol/L; Blood Urea Nitrogen 13 mg/dL (7-17); Calcium 9.2 mg/dL (8.4-10.2); Carbon Dioxide 22 mmol/L (22-30); Chloride 111 mmol/L (98-107); Glucose 80 mg/dL (74-99); Non-African American GFR(MDRD) >60 (>60 ml/min/1.73 sqM); Sodium 140 mmol/L (137-145); Total Bilirubin 0.8 mg/dL (0.2-1.3); Total Protein 5.5 g/dL (6.3-8.2)
--- NOTE | 2016-08-05 10:37 | P.PN ---
Subjective 86-year-old female being seen with the surgical attending in rounds this morning. Patient's resting in bed. Patient's pleasant cooperative taking a diet. Patient states "look my hands are not shaking anymore" patient's being followed by surgical service at the request of the attending for a surgical eval. Patient does have a history of a parathyroid disease. Patient is not aware of when she had the parathyroidectomy done in the past. Operative reports have not been able to be obtained. The parathyroid level was 63.3 drawn on August 03. Calcium levels 9.2 this morning Objective - Vital Signs Vital signs: Vital Signs Temp 97.3 F L 08/05/16 07:00 Pulse 67 08/05/16 07:00 Resp 16 08/05/16 07:00 BP 113/56 08/05/16 07:00 Pulse Ox 95 08/05/16 07:00 Intake & Output 08/04/16 08/05/16 08/05/16 18:59 06:59 18:59 Intake Total 300 Balance 300 Weight 53 kg Intake: Oral 300 Other: Voiding Method Bedside Commode Diaper Diaper Incontinent Incontinent # Voids 3 2 # Bowel Movements 1 - Exam Physical exam 86-year-old female sitting up in bed taking a diet pleasant oriented to self only Lungs essentially clear on room air Heart S1-S2 audible regular Abdomen soft nontender reports no nausea vomiting Extremities no evidence of any tremors noted no edema noted moves all extremities appropriately - Labs CBC & Chem 7: 08/01/16 11:17 08/05/16 07:58 Labs: Abnormal Lab Results - Last 24 Hours (Table) 08/05/16 Range/Units 07:58 Chloride 111 H (98-107) mmol/L Creatinine 0.50 L (0.52-1.04) mg/dL Ionized Calcium Yobani 5.7 H (4.5-5.3) mg/dL Total Protein 5.5 L (6.3-8.2) g/dL Albumin 2.8 L (3.5-5.0) g/dL Assessment and Plan Plan: Impression Dementia with no behavior disturbance History of parathyroid disease Parathyroid level obtained on August 03 63.3 within the normal range Ionize calcium level drawn on the 5.7 Recent treatment for a UTI Depressive disorder nonspecified Essential hypertension Hypercalcemia Plan Attempt to obtain old records regards to information about parathyroid surgery was done agree with stopping the primidone Continue IV fluid further recommendations pending no evidence of any acute surgical intervention at this time Will follow-up on pending labs The above dictated assessment and findings were discussed with Dr. Janice Woodall. Impression and the plan of care have been dictated as directed. [place] nurse practitioner acting as a scribe for Dr. Dejesus
--- NOTE | 2016-08-05 10:39 | P.PN ---
Subjective 86-year-old female being seen with the surgical attending in rounds this morning. Patient's resting in bed. Patient's pleasant cooperative taking a diet. Patient states "look my hands are not shaking anymore" no tremors noted patient's being followed by surgical service at the request of the attending for a surgical eval. Patient does have a history of a parathyroid disease. Patient is not aware of when she had the parathyroidectomy done in the past. Operative reports have not been able to be obtained. The parathyroid level was 63.3 drawn on August 03. Calcium levels 9.2 this morning Objective - Vital Signs Vital signs: Vital Signs Temp 97.3 F L 08/05/16 07:00 Pulse 67 08/05/16 08:00 Resp 16 08/05/16 08:00 BP 113/56 08/05/16 07:00 Pulse Ox 95 08/05/16 07:00 Intake & Output 08/04/16 08/05/16 08/05/16 18:59 06:59 18:59 Intake Total 300 Balance 300 Weight 53 kg Intake: Oral 300 Other: Voiding Method Bedside Commode Diaper Diaper Diaper Incontinent Incontinent Incontinent # Voids 3 2 # Bowel Movements 1 - Exam Physical exam 86-year-old female sitting up in bed taking a diet pleasant oriented to self only Lungs essentially clear on room air Heart S1-S2 audible regular Abdomen soft nontender reports no nausea vomiting Extremities no evidence of any tremors noted no edema noted moves all extremities appropriately - Labs CBC & Chem 7: 08/01/16 11:17 08/05/16 07:58 Labs: Abnormal Lab Results - Last 24 Hours (Table) 08/05/16 Range/Units 07:58 Chloride 111 H (98-107) mmol/L Creatinine 0.50 L (0.52-1.04) mg/dL Ionized Calcium Yobani 5.7 H (4.5-5.3) mg/dL Total Protein 5.5 L (6.3-8.2) g/dL Albumin 2.8 L (3.5-5.0) g/dL
[2016-08-05] MEDS ORDERED: SODIUM CHLORIDE 0.9% 250 ML with PAMIDRONATE 30 MG IV ONE ×2 (19:00)
[2016-08-05] MEDS: QUEtiapine 25 MG TAB PO SCH (21:38)
--- NOTE | 2016-08-05 22:52 | PN ---
DATE OF SERVICE: 08/05/2016 PRESENTING COMPLAINT: Hypercalcemia. INTERVAL HISTORY: This patient presented with increasing confusion, restlessness, found to be hypercalcemic. Patient has been on IV fluids and calcium. Initially I had put the patient on Primidone. I discontinued that yesterday. Some improvement in the cognitive function is noted. Patient has underlying dementia. Review of systems done for constitutional, cardiovascular, GI, pulmonary; relevant findings as above. Current medications are reviewed that include IV fluids and Lasix. On examination, temperature 97.3, pulse 67, respiration 16, blood pressure 113/56, pulse ox 95% on room air. GENERAL APPEARANCE: Sitting up, comfortable. EYES: Pupils equal. Conjunctivae normal. NECK: JVD not raised. Mass not palpable. RESPIRATORY: Effort normal. Lungs are clear. CARDIOVASCULAR: First and second sounds normal. No edema. ABDOMEN: Soft, non-tender. PSYCHIATRY: Patient is answering questions better but is still confused. NEUROLOGICAL: No tremors. INVESTIGATIONS: Potassium 4. BUN 13, creatinine 0.50. Ionized calcium is 5.7. Patient's PTH level is normal. ASSESSMENT: 1. Hypercalcemia; could be from dehydration; could be from iron supplementation causing cognitive dysfunction. 2. Advanced Alzheimer's dementia, late-onset type. 3. Essential hypertension. 4. Hyperlipidemia. 5. Depression not otherwise specified. 6. Tremors have improved; could be from hypercalcemia. PLAN: Continue with IV fluids and p.o. Lasix. Will also give a dose of pamidronate 30 mg. Will keep the patient off the Primidone. Continue current medication and treatment plan.
[2016-08-06] MEDS: SODIUM CHLORIDE 0.9% 1,000 ML IV SCH ×2 (03:41→11:58)
[2016-08-06] MEDS: LISINOPRIL 20 MG TAB PO SCH (08:17)
[2016-08-06] MEDS: amLODIPine 5 MG TAB PO SCH (08:17)
[2016-08-06] MEDS: ENOXAPARIN 40 MG/0.4 ML SYRINGE SQ SCH (08:17)
[2016-08-06] MEDS: FUROSEMIDE 40 MG TAB PO SCH (08:17)
[2016-08-06 08:41] LABS: ALT 23 U/L (9-52); AST 18 U/L (14-36); Alkaline Phosphatase 55 U/L (38-126); Anion Gap 9 mmol/L; Blood Urea Nitrogen 14 mg/dL (7-17); Calcium 9.3 mg/dL (8.4-10.2); Carbon Dioxide 25 mmol/L (22-30); Chloride 109 mmol/L (98-107); Glucose 88 mg/dL (74-99); Non-African American GFR(MDRD) >60 (>60 ml/min/1.73 sqM); Potassium 3.2 mmol/L (3.5-5.1); Sodium 143 mmol/L (137-145); Total Bilirubin 0.5 mg/dL (0.2-1.3); Total Protein 5.5 g/dL (6.3-8.2)
[2016-08-06] MEDS: MULTIVITAMINS, THERA 1 EACH TAB PO SCH (11:58)
[2016-08-06] MEDS ORDERED: POTASSIUM CHLORIDE ER 20 MEQ TAB.ER PO STA (12:19)
--- NOTE | 2016-08-06 14:56 | DS ---
DATE OF ADMISSION: 08/01/2016 DATE OF DISCHARGE: 08/06/2016 FINAL DIAGNOSES: 1. Hypercalcemia, cause unknown. Could be from calcium supplementation causing cognitive dysfunction. 2. Advanced Alzheimer's dementia, late onset type. 3. Essential hypertension. 4. Hyperlipidemia. 5. Depression, not otherwise specified. HOSPITAL COURSE: This patient presented with increasing cognitive dysfunction, has underlying dementia, was found to be hypercalcemic. Patient is given IV fluids, Lasix to bring the calcium down. Also given some pamidronate. Calcium did come down from 6 down to 5.5. Patient had some sort of parathyroid surgery in the past. We do not have the records. This was done by Dr. Leslie Ruiz she was consulted. Still trying to get the records from her office. I will have the patient follow up with Dr. Lucila Eagle from Endocrinology. Patient's TSH has come back to be 63.3, which is normal and phosphorus came back to be normal. There is some improvement in cognitive function but still has underlying dementia. DISCHARGE MEDICATIONS: 1. Norvasc 5 mg p.o. b.i.d. 2. Seroquel 12.5 mg p.o. q.h.s. DISPOSITION: [facility]. Follow up with Dr. Lucila Eagle in one week for hypercalcemia, Dr. Melgar at [facility]; Dr. Ramirez after discharge from the [facility]. Awaiting surgical records from Dr. Leslie Ruiz's office for prior parathyroid surgery that was done. On examination, lungs are clear. CARDIOVASCULAR: First and second sounds normal. Patient is able to answer simple questions. Discharge planning more than 35 minutes.
[2016-08-06 15:59] VITALS: BP 109/73; PULSE 87; RESP 18; TEMP 98.1
--- NOTE | 2016-08-27 09:29 | HP ---
DATE OF ADMISSION: 08/01/2016 PRESENTING COMPLAINT: Restless shaking. This is a patient who was seen on 08/02/16. History and physical components are missing, has to be redictated again. HISTORY OF PRESENTING COMPLAINT: This is an 86-year-old patient of Dr. Ramirez. The patient was recently in the hospital and treated for UTI and did complete a course of antibiotics. The patient has a history of dementia, hypertension, hyperlipidemia, depression. The patient [place] [facility] Patient has been having some episodes where she is shaking. She is more like what she describes as jittery. Patient is able to talk comfortably. She is rather confused, but she is fully alert and awake. The patient's UA came back negative. She was empirically put in the ER on IV antibiotics. The patient's appetite is good. Denies any obvious pain. When answering questions, she drifts off easily. REVIEW OF SYSTEMS: CONSTITUTIONAL: Tired. HEENT: None. RESPIRATORY: None. CARDIOVASCULAR: None. GASTROINTESTINAL: None. GENITOURINARY: None. MUSCULOSKELETAL: Pain in the joints. DERMATOLOGICAL: Dry skin. HEMATOLOGICAL: None. LYMPHATICS: None. PSYCHIATRY: Forgetful. NEUROLOGICAL: Generalized shaking. Past medical history of depression, hyperlipidemia, hypertension. PAST SURGICAL HISTORY: Breast cancer with right mastectomy, orthopedic surgery, skin patch from neck for skin cancer right cheek, right mastectomy, left hip surgery, parathyroid surgery. radical vulvectomy right labia last December. SOCIAL HISTORY: The patient resides at [facility] living in an apartment. She has [facility] home care. Her daughters drop over often and help her. Patient was a social smoker; stopped in . Alcohol none. FAMILY HISTORY: Father of stroke in his late 70s. HOME MEDICATIONS: 1. Colace 100 mg p.o. daily. 2. Vitamin D3, 2000 units p.o. daily. 3. Multivitamin 1 tablet p.o. daily. 4. Celexa 20 mg p.o. daily. 5. Meclizine 12.5 p.o. t.i.d. p.r.n. 6. Prinivil 20 mg p.o. daily. 7. Aricept 5 mg p.o. daily. 8. Norvasc 5 mg p.o. b.i.d. ALLERGIES: None. ON EXAMINATION: VITAL SIGNS ON PRESENTATION: Temperature 100, pulse 76, respirations 18, blood pressure 155/111, pulse ox 95% on room air. GENERAL APPEARANCE: Somewhat thin built, lying in bed, somewhat restless. EYES: Pupils equal. Conjunctivae normal. HEENT: Oral cavity with dry. NECK: JVD not raised. Mass not palpable. RESPIRATORY: Effort normal. LUNGS: Fair air entry. CARDIOVASCULAR: First and second sounds normal. No edema. ABDOMEN: Soft, nontender. Liver and spleen not palpable. LYMPHATIC: No lymph nodes palpable in the neck or axillae. PSYCHIATRY: Difficult to get straight answer from the patient. Patient keeps drifting off while talking. NEUROLOGICAL: Pupils equal. No facial asymmetry. Rather restless. Moving all 4 limbs. INVESTIGATIONS: White count 5, hemoglobin ( ). Potassium 4.9. BUN and creatinine are normal. UA negative. Influenza negative. Chest x-ray shows some chronic changes. ASSESSMENT. 1. Advancing Alzheimer's dementia, late onset type, but may be some psychosis as she is ( ) around. 2. Essential hypertension. 3. Hyperlipidemia. 4. Depression, not otherwise specified. 5. Akathisia. 6. Acute delirium, likely anticholinergic effect to medication including meclizine and Aricept, also probably responsible for patient's akathisia and side effect of medication present on admission. PLAN: Patient's home medications will be continued. Will discontinue the Colace. We will also discontinue the meclizine and Aricept. This may be having effects of anticholinergic effect. Will try some primidone. cushion worker is involved. Patient did tolerate her breakfast.
== END 2016-08-06 16:24 | DRG 641 ==
LOC: EC 10:02 → SUPCPDRO 10:02 → 4MS4W 11:57
PROVIDERS: ADMIT Hospitalist; ATTEND Hospitalist
DX: E83.52 Hypercalcemia (principal); I50.9 Heart failure, unspecified; I11.0 Hypertensive heart disease with heart failure; G30.1 Alzheimer's disease with late onset; E83.41 Hypermagnesemia; F02.80 Dementia in other diseases classified elsewhere, unspecified severity, without behavioral disturbance, psychotic disturbance, mood disturbance, and anxiety; F29 Unspecified psychosis not due to a substance or known physiological condition; E21.3 Hyperparathyroidism, unspecified; E78.5 Hyperlipidemia, unspecified; F32.9 Major depressive disorder, single episode, unspecified; Z85.3 Personal history of malignant neoplasm of breast; Z90.11 Acquired absence of right breast and nipple; Z87.891 Personal history of nicotine dependence; Z87.440 Personal history of urinary (tract) infections; Z79.899 Other long term (current) drug therapy
CPT/HCPCS: 36415; 71020; 80053; 81003; 82330; 82550; 82553; 83735; 83970; 84100; 84443; 85025; 87086; 87502; 96361; 96374; 96375; 96376; 99285

== ENCOUNTER 2016-09-01 11:44 | Inpatient (IN) | payer MEDICARE, BC ==
[2016-09-01] MEDS ORDERED: LORazepam 2 MG/ML SYRINGE IV STA (13:13)
[2016-09-01 13:48] LABS: Amorphous Sediment,Urine Few /hpf; Appearance,Urine Cloudy (Clear); Bilirubin,Urine Negative (Negative); Glucose,Urine (UA) Negative (Negative); Ketones,Urine Negative (Negative); Leukocyte Esterase,Urine Negative (Negative); Nitrite,Urine Negative (Negative); PH, Urine 7.5 (5.0-8.0); Particle Count 11668; Protein,Urine Negative (Negative); UA Billing (MACRO vs. MICRO) MICRO; Urobilinogen,Urine <2.0 mg/dL (<2.0)
[2016-09-01 14:08] LABS: Basophils % (A) 0 %; CH 32.4; CHCM 31.9; Eosinophils # (A) 0.2 k/uL (0-0.7); Eosinophils % (A) 3 %; HDW 2.41; HGB 13.7 gm/dL (11.4-16.0); Luc # (Auto) 0.13; Luc % (Auto) 2; Lymphocytes # (A) 1.2 k/uL (1.0-4.8); Lymphocytes % (A) 21 %; MCH 32.6 pg (25.0-35.0); MCHC 31.9 g/dL (31.0-37.0); MCV 102.2 fL (80.0-100.0); Macrocytosis Slight; Mean Platelet Volume 8.5; Monocytes # (A) 0.4 k/uL (0-1.0); Monocytes % (A) 6 %; Neutrophils # (A) 3.9 k/uL (1.3-7.7); Neutrophils % (A) 67 %; RBC 4.21 m/uL (3.80-5.40); RDW 12.7 % (11.5-15.5); WBC 5.8 k/uL (3.8-10.6); WBC (Perox) 5.81
[2016-09-01 14:21] LABS: ALT 19 U/L (9-52); AST 24 U/L (14-36); Alkaline Phosphatase 58 U/L (38-126); Anion Gap 9 mmol/L; Blood Urea Nitrogen 13 mg/dL (7-17); Calcium 10.1 mg/dL (8.4-10.2); Carbon Dioxide 26 mmol/L (22-30); Chloride 109 mmol/L (98-107); Glucose 140 mg/dL (74-99); Non-African American GFR(MDRD) >60 (>60 ml/min/1.73 sqM); Potassium 4.5 mmol/L (3.5-5.1); Sodium 144 mmol/L (137-145); Total Bilirubin 0.6 mg/dL (0.2-1.3); Total Protein 6.5 g/dL (6.3-8.2)
--- NOTE | 2016-09-01 14:34 | XR ---
EXAMINATION TYPE: XR chest 2V DATE OF EXAM: 09/01/2016 2:27 PM COMPARISON: 08/01/2016 HISTORY: Tremors TECHNIQUE: Frontal and lateral views of the chest are obtained. FINDINGS: There is no heart failure. There is coarsening of interstitial markings. There are clips f rom left mastectomy. Thoracic aorta is atheromatous. There are no hilar masses. There is no pleural e ffusion. There is a poorly marginated infiltrate in the left midlung. IMPRESSION: Pulmonary fibrotic changes. No heart failure. There is a possible new 2 cm infiltrate in the left midlung periphery compared to last exam.
--- NOTE | 2016-09-01 15:20 | ED ---
General Adult HPI - General Chief complaint: Recheck/Abnormal Lab/Rx Stated complaint: tremors, Time Seen by Provider: 09/01/16 12:05 Source: patient, family Mode of arrival: wheelchair Limitations: no limitations - History of Present Illness Initial comments: A 6-year-old female presented for evaluation of tremors. Family is with her and states that she gets tremors whenever she has a urinary tract infection which she has been having more frequently lately. They state that when she has urinary tract infections she has no other symptoms other than the tremors. The patient states that she feels normal with the exception of these tremors. She denies any associated chest pain, shortness of breath, nausea, vomiting, fevers, chills, dysuria, abdominal pain. She has not taken anything to improve her tremors and there are no exacerbating factors. - Related Data Home Medications Medication Instructions Recorded Confirmed Cholecalciferol [Vitamin D3] 1,000 unit PO DAILY 09/01/16 09/01/16 Docusate [Colace] 100 mg PO HS 09/01/16 09/01/16 Multivitamins, Thera [Multivitamin 1 tab PO DAILY 09/01/16 09/01/16 (formulary)] Previous Rx's Medication Instructions Recorded amLODIPine [Norvasc] 5 mg PO BID tab 06/11/15 QUEtiapine [SEROquel] 12.5 mg PO HS tab 08/06/16 Allergies Allergy/AdvReac Type Severity Reaction Status Date / Time No Known Allergies Allergy Verified 09/01/16 13:38 Review of Systems ROS Statement: Those systems with pertinent positive or pertinent negative responses have been documented in the HPI. ROS Other: All systems not noted in ROS Statement are negative. Constitutional: Denies: fever, chills, weakness, weight change Eyes: Denies: eye pain, vision change ENT: Denies: ear pain, throat pain Respiratory: Denies: cough, dyspnea, wheezes, hemoptysis, stridor Cardiovascular: Denies: chest pain, palpitations, dyspnea on exertion, orthopnea Endocrine: Denies: fatigue, polydipsia Gastrointestinal: Denies: abdominal pain, nausea, vomiting Genitourinary: Denies: urgency, dysuria, frequency, hematuria, discharge Skin: Denies: rash, lesions Neurological: Reports: other (Tremors). Denies: headache, weakness Psychiatric: Denies: anxiety, depression Past Medical History Past Medical History: Heart Failure, Hyperlipidemia, Hypertension Additional Past Medical History / Comment(s): vertigo, breast ca, rt mastectomy , tremors History of Any Multi-Drug Resistant Organisms: VRE Date of last positivie culture/infection: 08/08/16 MDRO Source:: Urine Past Surgical History: Breast Surgery, Orthopedic Surgery Additional Past Surgical History / Comment(s): skin patch 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 Past Anesthesia/Blood Transfusion Reactions: No Reported Reaction Past Psychological History: Anxiety, Depression Additional Psychological History / Comment(s): Pt resides at [facility] Living in an apartment. She has [facility] home care. Her daughters come over daily and give her lunch and shower her. She has an aide in the morning twice a day. She has a 4 wheeled walker to ambulate. Her family takes her to [facility]. She is also receiving OT/PT and nursing. Smoking Status: Former smoker Past Alcohol Use History: None Reported Additional Past Alcohol Use History / Comment(s): Pt was a "social smoker". She quit smoking in 1966. Past Drug Use History: None Reported - Past Family History Father Family Medical History: CVA/TIA Additional Family Medical History / Comment(s): Father of a CVA in his mid to late 70's. Mother Family Medical History: No Reported History Additional Family Medical History / Comment(s): Mother was healthy and lived to be 87/88 yrs old. Daughter(s) Family Medical History: No Reported History (Patient has 3 daughters no major medical problems.) Son(s) Family Medical History: No Reported History (Patient has one son no major medical problems.) General Exam Limitations: no limitations General appearance: alert, in no apparent distress Head exam: Present: atraumatic, normocephalic, normal inspection Eye exam: Present: normal appearance, PERRL, EOMI. Absent: scleral icterus, conjunctival injection, periorbital swelling ENT exam: Present: normal exam, mucous membranes moist Neck exam: Present: normal inspection. Absent: tenderness, meningismus, lymphadenopathy Respiratory exam: Present: normal lung sounds bilaterally. Absent: respiratory distress, wheezes, rales, rhonchi, stridor Cardiovascular Exam: Present: regular rate, normal rhythm, normal heart sounds. Absent: systolic murmur, diastolic murmur, rubs, gallop, clicks GI/Abdominal exam: Present: soft, normal bowel sounds. Absent: distended, tenderness, guarding, rebound, rigid Rectal exam: Present: deferred Extremities exam: Present: normal inspection, full ROM, normal capillary refill. Absent: tenderness, pedal edema, joint swelling, calf tenderness Back exam: Present: normal inspection Neurological exam: Present: alert, oriented X3, CN II-XII intact, other (Tremors ) Psychiatric exam: Present: normal affect, normal mood Skin exam: Present: warm, dry, intact, normal color. Absent: rash Course Vital Signs 09/01/16 09/01/16 09/01/16 11:52 14:01 15:22 Temperature 97.0 F L 100.1 F H 98.0 F Pulse Rate 102 H 77 88 Respiratory 20 20 20 Rate Blood Pressure 183/90 138/70 132/70 O2 Sat by Pulse 96 95 93 L Oximetry 09/01/16 16:19 Temperature 99.2 F Pulse Rate 90 Respiratory 18 Rate Blood Pressure 143/83 O2 Sat by Pulse 94 L Oximetry EKG Findings - EKG Comments: EKG Findings:: Normal sinus rhythm with a ventricular rate of 82, MAGY 148, QRS 92, QT/QTC 384/448. Medical Decision Making - Medical Decision Making A 6-year-old male presented for evaluation of tremors which she states she usually gets when she has urinary tract infection. She denies any other associated symptoms including dysuria or increased frequency. On physical examination there are no significant abnormal findings with the exception of tremors at baseline. The patient confirms that she has not called and requires no blankets. We'll obtain labs, EKG, chest x-ray, and provide Ativan for symptom control. Labs revealed no significant abnormalities. Chest x-ray does show a new left lower lobe infiltrate and this will be treated as a community-acquired pneumonia. Patient was attempted to ambulate but was very unsteady on her feet raising concern for the patient as a fall risk. Through shared decision making it was determined that she would be admitted for further evaluation and treatment. Primary team was contacted and accepted the admission without further request. Admission order placed in bed request submitted. - Lab Data Result diagrams: 09/01/16 13:47 09/01/16 13:47 Lab Results 09/01/16 09/01/16 09/01/16 Range/Units 13:35 13:47 13:47 WBC 5.8 (3.8-10.6) k/uL RBC 4.21 (3.80-5.40) m/uL Hgb 13.7 (11.4-16.0) gm/dL Hct 43.0 (34.0-46.0) % MCV 102.2 H (80.0-100.0) fL MCH 32.6 (25.0-35.0) pg MCHC 31.9 (31.0-37.0) g/dL RDW 12.7 (11.5-15.5) % Plt Count 202 (150-450) k/uL Neutrophils % 67 % Lymphocytes % 21 % Monocytes % 6 % Eosinophils % 3 % Basophils % 0 % Neutrophils # 3.9 (1.3-7.7) k/uL Lymphocytes # 1.2 (1.0-4.8) k/uL Monocytes # 0.4 (0-1.0) k/uL Eosinophils # 0.2 (0-0.7) k/uL Basophils # 0.0 (0-0.2) k/uL Macrocytosis Slight Sodium 144 (137-145) mmol/L Potassium 4.5 (3.5-5.1) mmol/L Chloride 109 H (98-107) mmol/L Carbon Dioxide 26 (22-30) mmol/L Anion Gap 9 mmol/L BUN 13 (7-17) mg/dL Creatinine 0.50 L (0.52-1.04) mg/dL Est GFR (MDRD) Af Amer >60 (>60 ml/min/1.73 sqM) Est GFR (MDRD) Non-Af >60 (>60 ml/min/1.73 sqM) Glucose 140 H (74-99) mg/dL Calcium 10.1 (8.4-10.2) mg/dL Total Bilirubin 0.6 (0.2-1.3) mg/dL AST 24 (14-36) U/L ALT 19 (9-52) U/L Alkaline Phosphatase 58 (38-126) U/L Troponin I (0.000-0.034) ng/mL Total Protein 6.5 (6.3-8.2) g/dL Albumin 3.8 (3.5-5.0) g/dL Lipase 74 (23-300) U/L Urine Color Yellow Urine Appearance Cloudy H (Clear) Urine pH 7.5 (5.0-8.0) Ur Specific [place] 1.010 (1.001-1.035) Urine Protein Negative (Negative) Urine Glucose (UA) Negative (Negative) Urine Ketones Negative (Negative) Urine Blood Negative (Negative) Urine Nitrite Negative (Negative) Urine Bilirubin Negative (Negative) Urine Urobilinogen <2.0 (<2.0) mg/dL Ur Leukocyte Esterase Negative (Negative) Amorphous Sediment Few H (None) /hpf Influenza Type A RNA (Not Detectd) Influenza Type B (PCR) (Not Detectd) 09/01/16 09/01/16 Range/Units 13:47 13:47 WBC (3.8-10.6) k/uL RBC (3.80-5.40) m/uL Hgb (11.4-16.0) gm/dL Hct (34.0-46.0) % MCV (80.0-100.0) fL MCH (25.0-35.0) pg MCHC (31.0-37.0) g/dL RDW (11.5-15.5) % Plt Count (150-450) k/uL Neutrophils % % Lymphocytes % % Monocytes % % Eosinophils % % Basophils % % Neutrophils # (1.3-7.7) k/uL Lymphocytes # (1.0-4.8) k/uL Monocytes # (0-1.0) k/uL Eosinophils # (0-0.7) k/uL Basophils # (0-0.2) k/uL Macrocytosis Sodium (137-145) mmol/L Potassium (3.5-5.1) mmol/L Chloride (98-107) mmol/L Carbon Dioxide (22-30) mmol/L Anion Gap mmol/L BUN (7-17) mg/dL Creatinine (0.52-1.04) mg/dL Est GFR (MDRD) Af Amer (>60 ml/min/1.73 sqM) Est GFR (MDRD) Non-Af (>60 ml/min/1.73 sqM) Glucose (74-99) mg/dL Calcium (8.4-10.2) mg/dL Total Bilirubin (0.2-1.3) mg/dL AST (14-36) U/L ALT (9-52) U/L Alkaline Phosphatase (38-126) U/L Troponin I <0.012 (0.000-0.034) ng/mL Total Protein (6.3-8.2) g/dL Albumin (3.5-5.0) g/dL Lipase (23-300) U/L Urine Color Urine Appearance (Clear) Urine pH (5.0-8.0) Ur Specific [place] (1.001-1.035) Urine Protein (Negative) Urine Glucose (UA) (Negative) Urine Ketones (Negative) Urine Blood (Negative) Urine Nitrite (Negative) Urine Bilirubin (Negative) Urine Urobilinogen (<2.0) mg/dL Ur Leukocyte Esterase (Negative) Amorphous Sediment (None) /hpf Influenza Type A RNA Not Detected (Not Detectd) Influenza Type B (PCR) Not Detected (Not Detectd) Disposition Clinical Impression: CAP (community acquired pneumonia), Tremor, At risk for fall due to comorbid condition Disposition: ADMITTED IP TO THIS [facility] Decision to Admit Reason: Admit from EC Decision Date: 09/01/16 Decision Time: 15:38
[2016-09-01] MEDS ORDERED: AZITHROMYCIN 500 MG in SODIUM CHLORIDE 0.9% 250 ML IVPB STA (15:38)
[2016-09-01] MEDS ORDERED: ONDANSETRON 4 MG/2 ML VIAL IVP PRN (15:38)
[2016-09-01] MEDS ORDERED: NALOXONE 0.4 MG/ML 1 ML VIAL IV PRN (15:38)
--- NOTE | 2016-09-01 16:10 | CT ---
EXAMINATION TYPE: CT brain wo con DATE OF EXAM: 09/01/2016 4:01 PM COMPARISON: 06/06/2015 HISTORY: Patient complains of tremors. CT DLP: 878.9 mGycm Automated exposure control for dose reduction was used. FINDINGS: There is cerebral cortical atrophy. There is patchy hypodensity in the periventricular white matter. There is no mass effect nor midline shift. There is no sign of intracranial hemorrhage. Calvarium is intact. IMPRESSION: Cerebral atrophy and chronic small vessel ischemia. No acute intracranial abnormality. No change comp ared to old exam.
[2016-09-01 17:03] VITALS: BMI 22.4
--- NOTE | 2016-09-01 18:16 | P.HPIM ---
History of Present Illness H&P Date: 09/01/16 Chief Complaint: Tremors. This is an 86-year-old female with a previous medical history significant for hypertension and hypertensive cardio vascular disease, hyperlipidemia, Alzheimer dementia, recurrent UTI, breast cancer status post right mastectomy, DVT of the left leg, patient was brought into the emergency room at [facility] today because of possible urinary tract infection and increased tremors and and controlled movement of lips, patient had a chest x -ray thought to be due to a new infiltrate, patient has no signs or symptoms of pneumonia at this point in time however because of the presentation she was started on IV antibiotic in the form of Rocephin 1 g IV piggyback every 24 hours , and neurologic consultation was obtained from Dr. Kaplan. Review of Systems Constitutional: Reports weakness, Denies anorexia, Denies chronic headaches, Denies lethargy, Denies malaise, Denies weight gain, Denies weight loss Eyes: denies blurred vision, denies bulging eye, denies decreased vision Ears: bilateral: decreased hearing Ears, nose, mouth and throat: Denies dysphagia, Denies neck lump, Denies sore throat, Denies vertigo Breasts: right: as per HPI (Right vasectomy.) Cardiovascular: Denies chest pain, Denies decreased exercise tolerance, Denies dyspnea on exertion, Denies high blood pressure, Denies phlebitis, Denies rapid heart beat, Denies shortness of breath, Denies syncope Respiratory: Denies congestion, Denies cough, Denies cough with sputum, Denies home oxygen, Denies sleep apnea, Denies snoring, Denies wheezing Gastrointestinal: Denies abdominal pain, Denies bloating, Denies BRBPR, Denies excessive gas, Denies heartburn, Denies melena, Denies nausea, Denies vomiting Genitourinary: Denies dysuria, Denies hematuria Menstruation: Reports post hysterectomy, Reports postmenopausal Musculoskeletal: Reports gait dysfunction, Reports morning stiffness Musculoskeletal: absent: ankle pain, ankle stiffness, ankle swelling, elbow pain , elbow stiffness, elbow swelling, foot pain, foot stiffness, foot swelling, hand pain, hand stiffness, hand swelling, hip pain, hip stiffness, hip swelling , knee pain, knee stiffness, knee swelling, shoulder pain, shoulder stiffness, shoulder swelling, wrist pain, wrist stiffness, wrist swelling Integumentary: Denies pruritus, Denies rash Neurological: Reports balance difficulties, Reports confusion, Reports gait dysfunction, Reports memory loss, Reports weakness Psychiatric: Reports anxiety, Reports memory loss Endocrine: Denies fatigue, Denies weight change Past Medical History Past Medical History: Heart Failure, Dementia, Hyperlipidemia, Hypertension, Osteoarthritis (OA) Additional Past Medical History / Comment(s): vertigo, breast ca, rt mastectomy , tremors, Alzheimer dementia, vertigo, History of Any Multi-Drug Resistant Organisms: VRE Date of last positivie culture/infection: 08/08/16 MDRO Source:: Urine Past Surgical History: Breast Surgery, Orthopedic Surgery Additional Past Surgical History / Comment(s): skin patch 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 Past Anesthesia/Blood Transfusion Reactions: No Reported Reaction Past Psychological History: Anxiety, Depression Additional Psychological History / Comment(s): Pt resides at [facility] Living in an apartment. She has [facility] home care. Her daughters come over daily and give her lunch and shower her. She has an aide in the morning twice a day. She has a 4 wheeled walker to ambulate. Her family takes her [facility] She is also receiving OT/PT and nursing. Smoking Status: Former smoker Past Alcohol Use History: None Reported Additional Past Alcohol Use History / Comment(s): Pt was a "social smoker". She quit smoking in 1966. Past Drug Use History: None Reported - Past Family History Father Family Medical History: CVA/TIA Additional Family Medical History / Comment(s): Father of a CVA in his mid to late 70's. Mother Family Medical History: No Reported History Additional Family Medical History / Comment(s): Mother was healthy and lived to be 87/88 yrs old. Daughter(s) Family Medical History: No Reported History (Patient has 3 daughters no major medical problems.) Son(s) Family Medical History: No Reported History (Patient has one son no major medical problems.) Medications and Allergies Home Medications Medication Instructions Recorded Confirmed Type Cholecalciferol [Vitamin D3] 1,000 unit PO DAILY 09/01/16 09/01/16 History Docusate [Colace] 100 mg PO HS 09/01/16 09/01/16 History Multivitamins, Thera [Multivitamin 1 tab PO DAILY 09/01/16 09/01/16 History (formulary)] Allergies Allergy/AdvReac Type Severity Reaction Status Date / Time No Known Allergies Allergy Verified 09/01/16 13:38 Physical Exam Vitals: Vital Signs Temp Pulse Resp BP BP Pulse Ox 09/01/16 16:49 98.2 F 18 118/66 98 09/01/16 16:19 99.2 F 90 18 143/83 94 L Intake and Output 09/01/16 09/01/16 09/01/16 06:59 14:59 22:59 Other: Weight 52.163 kg Patient Weight 09/02/16 06:59 Weight 52.163 kg - Constitutional General appearance: no acute distress, thin - EENT Eyes: anicteric sclerae, EOMI, PERRLA, no ptosis, no scleral icterus, normal appearance ENT: hard of hearing, NA/AT, normal oropharynx, no thrush Ears: bilateral: normal - Neck Neck: no lymphadenopathy, normal ROM, no rigidity, no stridor, no thyromegaly Carotids: bilateral: upstroke delayed Thyroid: negative: normal size - Respiratory Respiratory: bilateral: diminished, negative: dullness, rales, rhonchi, wheezing , prolonged expiration, prolonged inspiration - Cardiovascular Rhythm: regular Heart sounds: normal: S1, S2 Abnormal Heart Sounds: systolic murmur, no rub, no S3 Gallop, no S4 Gallop, no click - Gastrointestinal General gastrointestinal: normal bowel sounds, soft, no splenomegaly, no tenderness, no umbilical hernia, no ventral hernia - Integumentary Integumentary: normal, normal turgor - Neurologic Neurologic: CNII-XII intact - Musculoskeletal Musculoskeletal: generalized weakness, strength equal bilaterally - Psychiatric Psychiatric: no A&O x's 3, no appropriate affect, no intact judgment & insight Results CBC & Chem 7: 09/01/16 13:47 09/01/16 13:47 Thrombosis Risk Factor Assmnt - DVT/VTE Prophylaxis DVT/VTE Prophylaxis: Pharmacologic Prophylaxis ordered, Mechanical Prophylaxis ordered - Choose All That Apply Each Risk Factor Represents 3 Points: Age 75 years or older Thrombosis Risk Factor Assessment Total Risk Factor Score: 3 Thrombosis Risk Factor Assessment Level: Moderate Risk Assessment and Plan Plan: Assessment and plan: 1. Right middle lobe infiltrate with possible pneumonia. Patient did receive 1 dose of Rocephin and one dose of Zithromax, we will start the patient on Levaquin 250 mg IV piggyback every 24 hours as the patient was hospitalized recently for the exact same etiology, we will monitor the patient very closely. 2. Alzheimer dementia that appears to be moderate to severe. Patient may need to be started on Exelon patch. Currently on Seroquel. 3. Tremors. Thought to be due to advanced dementia without any evidence of any acute neurological deficit. Monitor the symptoms on antipsychotics. 4. Hypertension and hypertensive cardiovascular disease. Continue amlodipine 5 mg orally twice every day. 5. Vitamin D deficiency. Continue vitamin D supplement. 6. History of breast cancer post right mastectomy. 7. History of hyperparathyroidism. Post parathyroidectomy. 8. DVT prophylaxis. Continue Lovenox 40 mg subcutaneously every 24 hours. 9. GI prophylaxis. Continue Protonix 40 mg orally once every day. 10. Prognosis is fair.
[2016-09-01] MEDS: PANTOPRAZOLE 40 MG TABLET PO SCH (18:46)
[2016-09-01] MEDS: amLODIPine 5 MG TAB PO SCH (22:03)
[2016-09-01] MEDS: DOCUSATE 100 MG CAP PO SCH (22:03)
[2016-09-01] MEDS: 0.9% NACL WITH KCL 20 MEQ/L 1,000 ML IV SCH (22:03)
[2016-09-01] MEDS: QUEtiapine 25 MG TAB PO SCH (22:04)
[2016-09-01 22:51] VITALS: RESP 16
[2016-09-02] MEDS: PANTOPRAZOLE 40 MG TABLET PO SCH ×2 (08:18→17:51)
[2016-09-02] MEDS: CHOLECALCIFEROL 1,000 UNIT TAB PO SCH (08:18)
[2016-09-02] MEDS: amLODIPine 5 MG TAB PO SCH ×2 (08:18→20:15)
[2016-09-02] MEDS: MULTIVITAMINS, THERA 1 EACH TAB PO SCH (08:18)
[2016-09-02] MEDS: ENOXAPARIN 40 MG/0.4 ML SYRINGE SQ SCH (08:18)
[2016-09-02 08:47] LABS: ALT 22 U/L (9-52); AST 25 U/L (14-36); Alkaline Phosphatase 52 U/L (38-126); Anion Gap 5 mmol/L; Blood Urea Nitrogen 13 mg/dL (7-17); Calcium 9.4 mg/dL (8.4-10.2); Carbon Dioxide 24 mmol/L (22-30); Chloride 113 mmol/L (98-107); Glucose 86 mg/dL (74-99); Magnesium 2.3 mg/dL (1.6-2.3); Non-African American GFR(MDRD) >60 (>60 ml/min/1.73 sqM); Sodium 142 mmol/L (137-145); Total Protein 5.9 g/dL (6.3-8.2)
[2016-09-02 09:14] LABS: Basophils % (A) 0 %; CH 32.3; Eosinophils # (A) 0.2 k/uL (0-0.7); Eosinophils % (A) 4 %; HCT 40.4 % (34.0-46.0); HDW 2.44; HGB 13.4 gm/dL (11.4-16.0); Luc # (Auto) 0.12; Luc % (Auto) 2; Lymphocytes # (A) 1.5 k/uL (1.0-4.8); Lymphocytes % (A) 27 %; MCH 32.7 pg (25.0-35.0); MCHC 33.2 g/dL (31.0-37.0); MCV 98.5 fL (80.0-100.0); Mean Platelet Volume 8.6; Monocytes # (A) 0.3 k/uL (0-1.0); Monocytes % (A) 6 %; Neutrophils # (A) 3.4 k/uL (1.3-7.7); Neutrophils % (A) 61 %; RDW 12.8 % (11.5-15.5); WBC 5.6 k/uL (3.8-10.6); WBC (Perox) 5.59
[2016-09-02] MEDS: 0.9% NACL WITH KCL 20 MEQ/L 1,000 ML IV SCH (11:39)
[2016-09-02] MEDS: PRIMIDONE 50 MG TAB PO SCH ×2 (12:21→20:15)
[2016-09-02 16:12] VITALS: TEMP 97.9
--- NOTE | 2016-09-02 19:34 | XR ---
EXAMINATION TYPE: XR chest 2V DATE OF EXAM: 09/02/2016 7:01 PM COMPARISON: Yesterday HISTORY: Chest pain TECHNIQUE: Frontal and lateral views of the chest are obtained. FINDINGS: Heart size is fairly normal. Lungs are clear of infiltrate. There is no heart failure. Tho racic aorta is atheromatous. There are no hilar masses. There is no evidence of pleural effusion. Bon es are osteopenic. There is mild thoracic kyphotic deformity. 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 No acute lung disease. There is clearing of some infiltrate over the left lower lung field compared to yesterday.
[2016-09-02] MEDS: QUEtiapine 25 MG TAB PO SCH (20:14)
[2016-09-02] MEDS: DOCUSATE 100 MG CAP PO SCH (20:15)
[2016-09-03 07:39] VITALS: BP 127/84; PULSE 80
[2016-09-03] MEDS: amLODIPine 5 MG TAB PO SCH (08:50)
[2016-09-03] MEDS: PANTOPRAZOLE 40 MG TABLET PO SCH (08:50)
[2016-09-03] MEDS: ENOXAPARIN 40 MG/0.4 ML SYRINGE SQ SCH (08:50)
[2016-09-03] MEDS: PRIMIDONE 50 MG TAB PO SCH (08:50)
[2016-09-03] MEDS: 0.9% NACL WITH KCL 20 MEQ/L 1,000 ML IV SCH (11:32)
[2016-09-03] MEDS: MULTIVITAMINS, THERA 1 EACH TAB PO SCH (11:50)
[2016-09-03] MEDS: CHOLECALCIFEROL 1,000 UNIT TAB PO SCH (11:50)
--- NOTE | 2016-10-08 11:14 | P.DS ---
Providers Date of admission: 09/01/16 15:38 Expected date of discharge: 09/03/16 Attending physician: Elizabeth Guerra Primary care physician: [facility] Course: This is an 86-year-old female with a previous medical history significant for hypertension and hypertensive cardio vascular disease, hyperlipidemia, Alzheimer dementia, recurrent UTI, breast cancer status post right mastectomy, DVT of the left leg, patient was brought into the emergency room at [facility] today because of possible urinary tract infection and increased tremors and and controlled movement of lips, patient had a chest x -ray thought to be due to a new infiltrate, patient has no signs or symptoms of pneumonia at this point in time however because of the presentation she was started on IV antibiotic in the form of Rocephin 1 g IV piggyback every 24 hours , and neurologic consultation was obtained from Dr. Kaplan. 09/02: today, patient is most concerned regarding her tremors. Mysoline has been started. Patient recommended to follow-up with neurologist as an outpatient. Physical therapy 09/03: Patient is found sitting up in a chair. She states her tremor is completely gone. She is requesting to be discharged home. Patient will be discharged home today in stable condition. Daughter has already made an appointment with Dr. Malone. Discharge diagnoses: 1. Right middle lobe infiltrate with possible pneumonia. 2. Alzheimer dementia that appears to be moderate to severe. 3. Tremors. 4. Hypertension and hypertensive cardiovascular disease. 5. Vitamin D deficiency. 6. History of breast cancer post right mastectomy. 7. History of hyperparathyroidism. Post parathyroidectomy. Discharge plan: Home with VNA Impression and plan of care have been directed as dictated by the signing physician. Nicolette Chirinos nurse practitioner acting as scribe for signing physician. Patient Condition at Discharge: Good Plan - Discharge Summary New Discharge Prescriptions: Azithromycin [Zithromax] 250 mg PO DAILY #5 tab Primidone [Mysoline] 50 mg PO BID #60 tab Discharge Medication List amLODIPine [Norvasc] 5 mg PO BID tab 06/11/15 [Rx] QUEtiapine [SEROquel] 12.5 mg PO HS tab 08/06/16 [Rx] Cholecalciferol [Vitamin D3] 1,000 unit PO DAILY 09/01/16 [History] Docusate [Colace] 100 mg PO HS 09/01/16 [History] Multivitamins, Thera [Multivitamin (formulary)] 1 tab PO DAILY 09/01/16 [History ] Azithromycin [Zithromax] 250 mg PO DAILY #5 tab 09/03/16 [Rx] Primidone [Mysoline] 50 mg PO BID #60 tab 09/03/16 [Rx] Follow up Appointment(s)/Referral(s): Thony Malone MD [Primary Care Provider] - 09/19/16 1:00 pm Patient Instructions/Handouts: Primidone (By mouth), Azithromycin (By mouth), Pneumonia (DC), Tremors (DC) Discharge Disposition: HOME WITH HOME HEALTH SERVICES
--- NOTE | 2016-10-08 11:14 | P.PN ---
Subjective This is an 86-year-old female with a previous medical history significant for hypertension and hypertensive cardio vascular disease, hyperlipidemia, Alzheimer dementia, recurrent UTI, breast cancer status post right mastectomy, DVT of the left leg, patient was brought into the emergency room at [facility] today because of possible urinary tract infection and increased tremors and and controlled movement of lips, patient had a chest x -ray thought to be due to a new infiltrate, patient has no signs or symptoms of pneumonia at this point in time however because of the presentation she was started on IV antibiotic in the form of Rocephin 1 g IV piggyback every 24 hours , and neurologic consultation was obtained from Dr. Kaplan. 09/02: today, patient is most concerned regarding her tremors. Mysoline has been started. Patient recommended to follow-up with neurologist as an outpatient. Physical therapy Objective - Vital Signs Vital signs: Vital Signs Temp 97.8 F 09/02/16 07:00 Pulse 83 09/02/16 08:00 Resp 16 09/02/16 08:00 BP 136/87 09/02/16 07:00 Pulse Ox 92 L 09/02/16 07:00 Intake & Output 09/01/16 09/02/16 09/02/16 18:59 06:59 18:59 Intake Total 625 Balance 625 Weight 52.163 kg Intake: Intake, IV Titration 550 Amount 0.9% NaCl with KCl 20 Meq 550 /l 1,000 ml @ 50 mls/hr IV .Q20H SYEAD Rx#: [id number] Oral 75 Other: Voiding Method Toilet # Voids 1 - Exam General appearance: no acute distress, thin - EENT Eyes: anicteric sclerae, EOMI, PERRLA, no ptosis, no scleral icterus, normal appearance ENT: hard of hearing, NA/AT, normal oropharynx, no thrush Ears: bilateral: normal - Neck Neck: no lymphadenopathy, normal ROM, no rigidity, no stridor, no thyromegaly Carotids: bilateral: upstroke delayed Thyroid: negative: normal size - Respiratory Respiratory: bilateral: diminished, negative: dullness, rales, rhonchi, wheezing , prolonged expiration, prolonged inspiration - Cardiovascular Rhythm: regular Heart sounds: normal: S1, S2 Abnormal Heart Sounds: systolic murmur, no rub, no S3 Gallop, no S4 Gallop, no click - Gastrointestinal General gastrointestinal: normal bowel sounds, soft, no splenomegaly, no tenderness, no umbilical hernia, no ventral hernia - Integumentary Integumentary: normal, normal turgor - Neurologic Neurologic: CNII-XII intact - Musculoskeletal Musculoskeletal: generalized weakness, strength equal bilaterally - Psychiatric Psychiatric: no A&O x's 3, no appropriate affect, no intact judgment & insight - Labs CBC & Chem 7: 09/02/16 07:42 09/02/16 07:42 Labs: Abnormal Lab Results - Last 24 Hours (Table) 09/02/16 Range/Units 07:42 Chloride 113 H (98-107) mmol/L Total Protein 5.9 L (6.3-8.2) g/dL Albumin 3.2 L (3.5-5.0) g/dL Assessment and Plan Plan: 1. Right middle lobe infiltrate with possible pneumonia. Continue Rocephin and Zithromax. 2. Alzheimer dementia that appears to be moderate to severe. Patient may need to be started on Exelon patch. Currently on Seroquel. 3. Tremors. Thought to be due to advanced dementia without any evidence of any acute neurological deficit. Monitor the symptoms on antipsychotics. Mysoline started 4. Hypertension and hypertensive cardiovascular disease. Continue amlodipine 5 mg orally twice every day. 5. Vitamin D deficiency. Continue vitamin D supplement. 6. History of breast cancer post right mastectomy. 7. History of hyperparathyroidism. Post parathyroidectomy. 8. DVT prophylaxis. Continue Lovenox 40 mg subcutaneously every 24 hours. 9. GI prophylaxis. Continue Protonix 40 mg orally once every day. 10. discharge plan: To be determined. Physical therapy evaluation requested. Impression and plan of care have been directed as dictated by the signing physician. Nicolette Chirinos nurse practitioner acting as scribe for signing physician. Time with Patient: Greater than 30
== END 2016-09-03 13:55 | disposition home health service (06) | DRG 195 ==
LOC: EC 11:44 → 5MS5E 15:38
PROVIDERS: ADMIT Internal Medicine; ATTEND Internal Medicine
DX: J18.9 Pneumonia, unspecified organism (principal); I11.9 Hypertensive heart disease without heart failure; G30.9 Alzheimer's disease, unspecified; F02.80 Dementia in other diseases classified elsewhere, unspecified severity, without behavioral disturbance, psychotic disturbance, mood disturbance, and anxiety; R25.1 Tremor, unspecified; E55.9 Vitamin D deficiency, unspecified; M19.91 Primary osteoarthritis, unspecified site; E21.3 Hyperparathyroidism, unspecified; E78.5 Hyperlipidemia, unspecified; F32.9 Major depressive disorder, single episode, unspecified; F41.9 Anxiety disorder, unspecified; Z86.718 Personal history of other venous thrombosis and embolism; Z90.11 Acquired absence of right breast and nipple; Z87.891 Personal history of nicotine dependence; Z85.3 Personal history of malignant neoplasm of breast; Z87.440 Personal history of urinary (tract) infections; Z79.899 Other long term (current) drug therapy; Z16.24 Resistance to multiple antibiotics; Z86.19 Personal history of other infectious and parasitic diseases
CPT/HCPCS: 36415; 70450; 71020; 80053; 81001; 83690; 83735; 84484; 85025; 87502; 93005; 96365; 96375; 99285

== ENCOUNTER → 2016-09-20 | Outpatient (CLI) | payer MEDICARE, BC ==
--- NOTE | 2016-09-21 11:58 | US ---
EXAMINATION TYPE: US kidneys/renal and bladder DATE OF EXAM: 09/20/2016 4:22 PM COMPARISON: NONE CLINICAL HISTORY: N39.0 Urinary tract infection, site not specified. EXAM MEASUREMENTS: Right Kidney: 9.2 x 4.4 x 5.3 cm Left Kidney: 9.4 x 4.1 x 4.3 cm Right Kidney: cyst upper pole measuring 1.2 x 1.2 x 1.4 cm, lower pole partially obscured by bowel Left Kidney: cyst upper pole measuring 1.6 x 1.2 x 2.3 cm Bladder: wnl Bilateral Jets seen: Yes There is no evidence for hydronephrosis at this point in time. No nephrolithiasis is seen. This cyst associated with the right kidney appears simple as does the left exophytic cyst The urinary bladder is anechoic. Bilateral ureteral jets are seen. IMPRESSION: Simple cysts in the bilateral kidneys. Cortical medullary differentiation is maintained, renal sizes as above
== END | disposition home or self-care (01) ==
LOC: RADUSWWP 15:54
PROVIDERS: ATTEND Urology
DX: N28.1 Cyst of kidney, acquired (principal)
CPT/HCPCS: 76770

== ENCOUNTER 2016-10-21 10:14 | Emergency (ER) | payer MEDICARE, BC ==
[2016-10-21] MEDS ORDERED: LORazepam 2 MG/ML SYRINGE IV STA (10:19)
[2016-10-21] MEDS ORDERED: SODIUM CHLORIDE 0.9% 500 ML IV STA (10:19)
--- NOTE | 2016-10-21 10:20 | ED ---
General Adult HPI - General Stated complaint: Tremors Time Seen by Provider: 10/21/16 10:15 Source: RN notes reviewed, old records reviewed - History of Present Illness Initial comments: This is an 86-year-old female ER for evaluation of tremors. Patient full-body tremors and shaking. Patient does have Parkinson's. Has a similar history of prior similar complaint with ER visit. Patient's recent issue with tremors was related to urinary tract infection, symptoms there is no with improvement of urinary tract infection. Patient himself denies history, poor historian, she is also supported by EMS and patient's caregiver - Related Data Home Medications Medication Instructions Recorded Confirmed Cholecalciferol [Vitamin D3] 1,000 unit PO DAILY 09/01/16 09/01/16 Docusate [Colace] 100 mg PO HS 09/01/16 09/01/16 Multivitamins, Thera [Multivitamin 1 tab PO DAILY 09/01/16 09/01/16 (formulary)] Previous Rx's Medication Instructions Recorded amLODIPine [Norvasc] 5 mg PO BID tab 06/11/15 QUEtiapine [SEROquel] 12.5 mg PO HS tab 08/06/16 Azithromycin [Zithromax] 250 mg PO DAILY #5 tab 09/03/16 Primidone [Mysoline] 50 mg PO BID #60 tab 09/03/16 Nitrofurantoin Monohyd/M-Cryst 100 mg PO Q12HR #10 cap 10/21/16 [Macrobid] Allergies Allergy/AdvReac Type Severity Reaction Status Date / Time No Known Allergies Allergy Verified 09/01/16 13:38 Review of Systems ROS Statement: Those systems with pertinent positive or pertinent negative responses have been documented in the HPI. ROS Other: All systems not noted in ROS Statement are negative. 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 Past Anesthesia/Blood Transfusion Reactions: No Reported Reaction Past Psychological History: Anxiety, Depression Additional Psychological History / Comment(s): Pt resides at [facility] Living in an apartment. She has [facility] home care. Her daughters come over daily and give her lunch and shower her. She has an aide in the morning twice a day. She has a 4 wheeled walker to ambulate. [facility] She is also receiving OT/PT and nursing. Smoking Status: Former smoker Past Alcohol Use History: None Reported Additional Past Alcohol Use History / Comment(s): Pt was a "social smoker". She quit smoking in 1966. Past Drug Use History: None Reported - Past Family History Daughter(s) Family Medical History: No Reported History (Patient has 3 daughters no major medical problems.) Son(s) Family Medical History: No Reported History (Patient has one son no major medical problems.) Father Family Medical History: CVA/TIA Additional Family Medical History / Comment(s): Father of a CVA in his mid to late 70's. Mother Family Medical History: No Reported History Additional Family Medical History / Comment(s): Mother was healthy and lived to be 87/88 yrs old. General Exam General appearance: alert, in no apparent distress, anxious Head exam: Present: atraumatic, normocephalic, normal inspection Eye exam: Present: normal appearance, PERRL, EOMI. Absent: scleral icterus, conjunctival injection, periorbital swelling ENT exam: Present: normal exam, mucous membranes moist Neck exam: Present: normal inspection. Absent: tenderness, meningismus, lymphadenopathy Respiratory exam: Present: normal lung sounds bilaterally. Absent: respiratory distress, wheezes, rales, rhonchi, stridor Cardiovascular Exam: Present: regular rate, normal rhythm, normal heart sounds. Absent: systolic murmur, diastolic murmur, rubs, gallop, clicks GI/Abdominal exam: Present: soft, normal bowel sounds. Absent: distended, tenderness, guarding, rebound, rigid Extremities exam: Present: normal inspection, full ROM, normal capillary refill. Absent: tenderness, pedal edema, joint swelling, calf tenderness Back exam: Present: normal inspection Neurological exam: Present: alert, oriented X3, CN II-XII intact Psychiatric exam: Present: normal affect, normal mood Skin exam: Present: warm, dry, intact, normal color. Absent: rash Course Vital Signs 10/21/16 10/21/16 10:23 11:02 Temperature 99.2 F Pulse Rate 89 75 Respiratory 18 18 Rate Blood Pressure 149/107 161/78 O2 Sat by Pulse 94 L 97 Oximetry - Reevaluation(s) Reevaluation #1: 10/21/16 11:24 At this point patient's symptoms of tremor have resolved EKG Findings - EKG Comments: EKG Findings:: EKG shows normal sinus rhythm rate of 77, ID 164, QRS 86, QTC 436 Medical Decision Making - Medical Decision Making 86 female here with nonspecific muscle tremor and related to urinary tract infection, urinary tract infection will be treated appropriate, patient tremor has stopped in the emergency room. Patient will be discharged home - Lab Data Result diagrams: 10/21/16 10:45 10/21/16 10:45 Lab Results 10/21/16 10/21/16 10/21/16 Range/Units 10:45 10:45 10:45 WBC 5.0 (3.8-10.6) k/uL RBC 4.53 (3.80-5.40) m/uL Hgb 14.9 (11.4-16.0) gm/dL Hct 46.7 H (34.0-46.0) % MCV 103.2 H (80.0-100.0) fL MCH 33.0 (25.0-35.0) pg MCHC 32.0 (31.0-37.0) g/dL RDW 13.7 (11.5-15.5) % Plt Count 203 (150-450) k/uL Neutrophils % 68 % Lymphocytes % 20 % Monocytes % 7 % Eosinophils % 2 % Basophils % 1 % Neutrophils # 3.4 (1.3-7.7) k/uL Lymphocytes # 1.0 (1.0-4.8) k/uL Monocytes # 0.3 (0-1.0) k/uL Eosinophils # 0.1 (0-0.7) k/uL Basophils # 0.0 (0-0.2) k/uL Macrocytosis Slight Sodium 143 (137-145) mmol/L Potassium 4.8 (3.5-5.1) mmol/L Chloride 108 H (98-107) mmol/L Carbon Dioxide 28 (22-30) mmol/L Anion Gap 7 mmol/L BUN 14 (7-17) mg/dL Creatinine 0.62 (0.52-1.04) mg/dL Est GFR (MDRD) Af Amer >60 (>60 ml/min/1.73 sqM) Est GFR (MDRD) Non-Af >60 (>60 ml/min/1.73 sqM) Glucose 92 (74-99) mg/dL Calcium 10.1 (8.4-10.2) mg/dL Phosphorus 3.6 (2.5-4.5) mg/dL Magnesium 2.3 (1.6-2.3) mg/dL Total Bilirubin 0.9 (0.2-1.3) mg/dL AST 28 (14-36) U/L ALT 23 (9-52) U/L Alkaline Phosphatase 84 (38-126) U/L Total Protein 7.3 (6.3-8.2) g/dL Albumin 4.0 (3.5-5.0) g/dL Urine Color Light Yellow Urine Appearance Clear (Clear) Urine pH 7.0 (5.0-8.0) Ur Specific [place] 1.009 (1.001-1.035) Urine Protein Negative (Negative) Urine Glucose (UA) Negative (Negative) Urine Ketones Negative (Negative) Urine Blood Negative (Negative) Urine Nitrite Negative (Negative) Urine Bilirubin Negative (Negative) Urine Urobilinogen <2.0 (<2.0) mg/dL Ur Leukocyte Esterase Moderate H (Negative) Urine RBC 1 (0-5) /hpf Urine WBC 7 H (0-5) /hpf Hyaline Casts 1 (0-2) /lpf Urine Mucus Rare H (None) /hpf Disposition Clinical Impression: Tremor, Rigors Disposition: ADMITTED IP TO THIS HOSP Condition: Fair Prescriptions: Nitrofurantoin Monohyd/M-Cryst [Macrobid] 100 mg PO Q12HR #10 cap Referrals: Thony Malone MD [Primary Care Provider] - 1-2 days
[2016-10-21 10:25] VITALS: RESP 18; TEMP 99.2
[2016-10-21 11:06] LABS: Basophils % (A) 1 %; CH 32.5; CHCM 31.6; Eosinophils # (A) 0.1 k/uL (0-0.7); Eosinophils % (A) 2 %; HCT 46.7 % (34.0-46.0); HDW 2.14; HGB 14.9 gm/dL (11.4-16.0); Luc # (Auto) 0.13; Luc % (Auto) 3; Lymphocytes % (A) 20 %; MCV 103.2 fL (80.0-100.0); Macrocytosis Slight; Mean Platelet Volume 6.8; Monocytes # (A) 0.3 k/uL (0-1.0); Monocytes % (A) 7 %; Neutrophils # (A) 3.4 k/uL (1.3-7.7); Neutrophils % (A) 68 %; RBC 4.53 m/uL (3.80-5.40); RDW 13.7 % (11.5-15.5); WBC (Perox) 5.18
[2016-10-21 11:11] LABS: Appearance,Urine Clear (Clear); Bilirubin,Urine Negative (Negative); Glucose,Urine (UA) Negative (Negative); Ketones,Urine Negative (Negative); Leukocyte Esterase,Urine Moderate (Negative); Mucus,Urine Rare /hpf; Nitrite,Urine Negative (Negative); Particle Count 8092; Protein,Urine Negative (Negative); RBC,Urine 1 /hpf (0-5); Specific Gravity,Urine 1.009 (1.001-1.035); UA Billing (MACRO vs. MICRO) MICRO; Urobilinogen,Urine <2.0 mg/dL (<2.0); WBC,Urine 7 /hpf (0-5)
[2016-10-21 11:15] LABS: ALT 23 U/L (9-52); AST 28 U/L (14-36); Alkaline Phosphatase 84 U/L (38-126); Anion Gap 7 mmol/L; Blood Urea Nitrogen 14 mg/dL (7-17); Calcium 10.1 mg/dL (8.4-10.2); Carbon Dioxide 28 mmol/L (22-30); Chloride 108 mmol/L (98-107); Glucose 92 mg/dL (74-99); Magnesium 2.3 mg/dL (1.6-2.3); Non-African American GFR(MDRD) >60 (>60 ml/min/1.73 sqM); Phosphorous 3.6 mg/dL (2.5-4.5); Potassium 4.8 mmol/L (3.5-5.1); Sodium 143 mmol/L (137-145); Total Bilirubin 0.9 mg/dL (0.2-1.3); Total Protein 7.3 g/dL (6.3-8.2)
[2016-10-21 11:28] LABS: Creatine Kinase 23 U/L (30-135)
[2016-10-21 11:42] LABS: Creatine Kinase MB 0.5 ng/mL (0.0-2.4); Troponin I <0.012 ng/mL (0.000-0.034)
[2016-10-21 13:20] VITALS: BP 134/76; PULSE 86
== END 2016-10-21 13:19 | disposition home or self-care (01) ==
LOC: EC 10:14
DX: R25.1 Tremor, unspecified (principal); Z85.3 Personal history of malignant neoplasm of breast; Z87.891 Personal history of nicotine dependence; Z79.899 Other long term (current) drug therapy
CPT/HCPCS: 99284; 96365; 96375; 36415; 93005; 80053; 82550; 82553; 83735; 84100; 84484; 85025; 81001; 87086; J2060; J0696; 87077; 87186

== ENCOUNTER 2016-11-14 11:34 | Emergency (ER) | payer MEDICARE, BC ==
[2016-11-14 11:49] VITALS: RESP 20
[2016-11-14] MEDS ORDERED: SODIUM CHLORIDE 0.9% 1,000 ML IV STA (12:03)
[2016-11-14 12:45] LABS: Basophils # (A) 0.1 k/uL (0-0.2); Basophils % (A) 2 %; CH 32.8; CHCM 31.8; Eosinophils # (A) 0.1 k/uL (0-0.7); Eosinophils % (A) 2 %; HCT 51.2 % (34.0-46.0); HDW 2.07; HGB 16.1 gm/dL (11.4-16.0); Luc # (Auto) 0.12; Luc % (Auto) 2; Lymphocytes # (A) 1.2 k/uL (1.0-4.8); Lymphocytes % (A) 20 %; MCH 32.7 pg (25.0-35.0); MCHC 31.5 g/dL (31.0-37.0); MCV 103.8 fL (80.0-100.0); Macrocytosis Slight; Mean Platelet Volume 6.7; Monocytes # (A) 0.4 k/uL (0-1.0); Monocytes % (A) 6 %; Neutrophils # (A) 4.2 k/uL (1.3-7.7); Neutrophils % (A) 69 %; RBC 4.94 m/uL (3.80-5.40); RDW 13.7 % (11.5-15.5); WBC 6.1 k/uL (3.8-10.6); WBC (Perox) 5.44
[2016-11-14 12:58] LABS: Glucose 98 mg/dL (74-99); Total Protein 7.5 g/dL (6.3-8.2)
[2016-11-14 12:59] LABS: ALT 23 U/L (9-52); AST 30 U/L (14-36); Alkaline Phosphatase 89 U/L (38-126); Anion Gap 8 mmol/L; Blood Urea Nitrogen 15 mg/dL (7-17); Calcium 10.5 mg/dL (8.4-10.2); Carbon Dioxide 27 mmol/L (22-30); Chloride 106 mmol/L (98-107); Non-African American GFR(MDRD) >60 (>60 ml/min/1.73 sqM); Potassium 4.9 mmol/L (3.5-5.1); Sodium 141 mmol/L (137-145); Total Bilirubin 0.8 mg/dL (0.2-1.3)
--- NOTE | 2016-11-14 13:58 | ED ---
General Adult HPI - General Chief complaint: Urogenital Stated complaint: Shaking Time Seen by Provider: 11/14/16 11:56 Source: patient, family, RN notes reviewed Mode of arrival: wheelchair Limitations: no limitations - History of Present Illness Initial comments: Patient is an 86-year-old female who presents emergency room today with a chief complaint of having the "shakes". She does admit that started earlier today. She does admit that she's had these symptoms in the past when she's been diagnosed with urinary tract infection. She does admit that she's had chronic urinary tract infections has seen urology about this. She states she's currently taking daily antibiotics. Patient states other than having the shakes never usually has any symptoms. She denies any other complaints at this time. She does admit that she was seen recently in the emergency room just 3 weeks ago and diagnosed with urinary tract infection and prescribed antibiotics at that time as well. She denies any other complaints. Patient denies any recent fever, chills, shortness of breath, chest pain, back pain, abdominal pain , nausea or vomiting, numbness or tingling, hematuria, constipation or diarrhea , headaches or visual changes, or any other complaints. - Related Data Home Medications Medication Instructions Recorded Confirmed Cholecalciferol [Vitamin D3] 1,000 unit PO DAILY 09/01/16 11/14/16 Docusate [Colace] 100 mg PO HS 09/01/16 11/14/16 Multivitamins, Thera [Multivitamin 1 tab PO DAILY 09/01/16 11/14/16 (formulary)] Trimethobenzamide HCl [Tigan] 300 mg PO DAILY 10/21/16 11/14/16 Previous Rx's Medication Instructions Recorded amLODIPine [Norvasc] 5 mg PO BID tab 06/11/15 QUEtiapine [SEROquel] 12.5 mg PO HS tab 08/06/16 Primidone [Mysoline] 50 mg PO BID #60 tab 09/03/16 Diazepam [Valium] 5 mg PO TID PRN #30 tab 10/21/16 ALPRAZolam [Xanax] 0.25 mg PO TID #10 tab 11/14/16 Allergies Allergy/AdvReac Type Severity Reaction Status Date / Time No Known Allergies Allergy Verified 11/14/16 12:02 Review of Systems ROS Statement: Those systems with pertinent positive or pertinent negative responses have been documented in the HPI. ROS Other: All systems not noted in ROS Statement are negative. 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 Past Anesthesia/Blood Transfusion Reactions: No Reported Reaction Past Psychological History: Anxiety, Depression Additional Psychological History / Comment(s): Pt resides at [facility] Living in an apartment. She has [facility] home care. Her daughters come over daily and give her lunch and shower her. She has an aide in the morning twice a day. She has a 4 wheeled walker to ambulate. Her family takes her to app. She is also receiving OT/PT and nursing. Smoking Status: Former smoker Past Alcohol Use History: None Reported Additional Past Alcohol Use History / Comment(s): Pt was a "social smoker". She quit smoking in 1966. Past Drug Use History: None Reported - Past Family History Daughter(s) Family Medical History: No Reported History (Patient has 3 daughters no major medical problems.) Son(s) Family Medical History: No Reported History (Patient has one son no major medical problems.) Father Family Medical History: CVA/TIA Additional Family Medical History / Comment(s): Father of a CVA in his mid to late 70's. Mother Family Medical History: No Reported History Additional Family Medical History / Comment(s): Mother was healthy and lived to be 87/88 yrs old. General Exam - General Exam Comments Initial Comments: General: The patient is awake and alert, in no distress, and does not appear acutely ill. Eye: Pupils are equal, round and reactive to light, extra-ocular movements are intact. No nystagmus. There is normal conjunctiva bilaterally. No signs of icterus. Ears, nose, mouth and throat: There are moist mucous membranes and no oral lesions. Neck: The neck is supple, there is no tenderness or JVD. Cardiovascular: There is a regular rate and rhythm. No murmur, rub or gallop is appreciated. Respiratory: Lungs are clear to auscultation, respirations are non-labored, breath sounds are equal. No wheezes, stridor, rales, or rhonchi. Gastrointestinal: Soft, non-distended, non-tender abdomen without masses or organomegaly noted. There is no rebound or guarding present. No CVA tenderness. Bowel sounds are unremarkable. Musculoskeletal: Normal ROM, no tenderness. Strength 5/5. Sensation intact. Pulses equal bilaterally 2+. Neurological: A&O x 3. CN II-XII intact, There are no obvious motor or sensory deficits. Coordination appears grossly intact. Speech is normal. Skin: Skin is warm and dry and no rashes or lesions are noted. Psychiatric: Cooperative, appropriate mood & affect, normal judgment. Limitations: no limitations Course Vital Signs 11/14/16 11/14/16 11:46 14:00 Temperature 99.6 F Pulse Rate 97 102 H Respiratory 20 20 Rate Blood Pressure 186/99 179/112 O2 Sat by Pulse 99 92 L Oximetry Medical Decision Making - Medical Decision Making Case discussed in detail with attending physician Dr. Brannon. Patient reexamined this time shows no signs of distress. No shaking or tremors at this time. Is feeling better. Her urinalysis reviewed and shows no evidence of infection. Culture is pending. Patient currently taking low dose of Bactrim at this time. Will be discharged home advised that 1 to wait for the culture come back to see if there is a need for another antibiotic. Advised close follow-up with her urologist return here to emergency room for any other concerns. Will be given low dose of Xanax for her tremors to use if needed over the next 2 days. - Lab Data Result diagrams: 11/14/16 12:25 11/14/16 12:25 Lab Results 11/14/16 11/14/16 11/14/16 Range/Units 12:25 12:25 13:38 WBC 6.1 (3.8-10.6) k/uL RBC 4.94 (3.80-5.40) m/uL Hgb 16.1 H (11.4-16.0) gm/dL Hct 51.2 H (34.0-46.0) % MCV 103.8 H (80.0-100.0) fL MCH 32.7 (25.0-35.0) pg MCHC 31.5 (31.0-37.0) g/dL RDW 13.7 (11.5-15.5) % Plt Count 202 (150-450) k/uL Neutrophils % 69 % Lymphocytes % 20 % Monocytes % 6 % Eosinophils % 2 % Basophils % 2 % Neutrophils # 4.2 (1.3-7.7) k/uL Lymphocytes # 1.2 (1.0-4.8) k/uL Monocytes # 0.4 (0-1.0) k/uL Eosinophils # 0.1 (0-0.7) k/uL Basophils # 0.1 (0-0.2) k/uL Macrocytosis Slight Sodium 141 (137-145) mmol/L Potassium 4.9 (3.5-5.1) mmol/L Chloride 106 (98-107) mmol/L Carbon Dioxide 27 (22-30) mmol/L Anion Gap 8 mmol/L BUN 15 (7-17) mg/dL Creatinine 0.65 (0.52-1.04) mg/dL Est GFR (MDRD) Af Amer >60 (>60 ml/min/1.73 sqM) Est GFR (MDRD) Non-Af >60 (>60 ml/min/1.73 sqM) Glucose 98 (74-99) mg/dL Calcium 10.5 H (8.4-10.2) mg/dL Total Bilirubin 0.8 (0.2-1.3) mg/dL AST 30 (14-36) U/L ALT 23 (9-52) U/L Alkaline Phosphatase 89 (38-126) U/L Total Protein 7.5 (6.3-8.2) g/dL Albumin 4.4 (3.5-5.0) g/dL Urine Color Yellow Urine Appearance Cloudy H (Clear) Urine pH 7.0 (5.0-8.0) Ur Specific [place] 1.010 (1.001-1.035) Urine Protein Negative (Negative) Urine Glucose (UA) Negative (Negative) Urine Ketones Negative (Negative) Urine Blood Negative (Negative) Urine Nitrite Negative (Negative) Urine Bilirubin Negative (Negative) Urine Urobilinogen <2.0 (<2.0) mg/dL Ur Leukocyte Esterase Small H (Negative) Urine Mucus Rare H (None) /hpf Disposition Clinical Impression: Tremor Disposition: HOME SELF-CARE Condition: Good Instructions: Urinary Tract Infection in Women (ED) Additional Instructions: Please follow-up urologist as discussed. Please use medication as needed and return to emergency room for any other concerns. Prescriptions: ALPRAZolam [Xanax] 0.25 mg PO TID #10 tab Referrals: Thony Malone MD [Primary Care Provider] - 1-2 days Time of Disposition: 14:45
[2016-11-14 14:14] LABS: Appearance,Urine Cloudy (Clear); Bilirubin,Urine Negative (Negative); Glucose,Urine (UA) Negative (Negative); Ketones,Urine Negative (Negative); Leukocyte Esterase,Urine Small (Negative); Mucus,Urine Rare /hpf; Nitrite,Urine Negative (Negative); Particle Count 15585; Protein,Urine Negative (Negative); UA Billing (MACRO vs. MICRO) MICRO; Urobilinogen,Urine <2.0 mg/dL (<2.0)
[2016-11-14] MEDS ORDERED: LORazepam 0.5 MG TAB PO STA (14:44)
[2016-11-14] MEDS ORDERED: LORazepam 1 MG TAB PO STA (14:52)
[2016-11-14 15:01] VITALS: BP 164/85; PULSE 104; TEMP 99
== END 2016-11-14 15:17 | disposition home or self-care (01) ==
LOC: EC 11:34
DX: R25.1 Tremor, unspecified (principal); Z87.891 Personal history of nicotine dependence; Z79.899 Other long term (current) drug therapy; Z85.3 Personal history of malignant neoplasm of breast; Z90.11 Acquired absence of right breast and nipple
CPT/HCPCS: 36415; 80053; 81001; 85025; 87040; 87086; 96360; 96361; 99283

== ENCOUNTER 2016-12-07 09:58 | Inpatient (IN) | payer MEDICARE, BC ==
[2016-12-07] MEDS ORDERED: SODIUM CHLORIDE 0.9% 500 ML IV STA (10:46)
--- NOTE | 2016-12-07 10:51 | ED ---
General Adult HPI - General Chief complaint: Recheck/Abnormal Lab/Rx Stated complaint: tremors Time Seen by Provider: 12/07/16 10:00 Source: family, RN notes reviewed Mode of arrival: wheelchair Limitations: no limitations - History of Present Illness Initial comments: This is an 86-year-old female who presents emergency Department visit from us. Patient states she's had these multiple times in the past has been seen in emergency department on a couple of occasions for similar. Patient states his headache seems to help her. Patient states yesterday she had the tremor so bad that she had to take for Xanax throughout the day. Patient has a little bit of tremor today so brought her in the emergency department. Patient denies any headache patient denies numbness weakness. Patient denies any lightheadedness dizziness or near syncopal episode. Patient denies any chest pain palpitations difficulty breathing or shortness of breath. Patient denies any recent history of fever chills or cough. Patient denies abdominal pain patient denies nausea or vomiting. Patient states she does feel like she shaking on occasion. Patient does admit she is an anxious person. These events seemed to occur after a busy day out and according to the daughter she had a busy day out the other day with a friend. - Related Data Home Medications Medication Instructions Recorded Confirmed Cholecalciferol [Vitamin D3] 1,000 unit PO DAILY 09/01/16 12/07/16 Docusate [Colace] 100 mg PO HS 09/01/16 12/07/16 Multivitamins, Thera [Multivitamin 1 tab PO DAILY 09/01/16 12/07/16 (formulary)] Trimethobenzamide HCl [Tigan] 300 mg PO DAILY 10/21/16 12/07/16 Previous Rx's Medication Instructions Recorded amLODIPine [Norvasc] 5 mg PO BID tab 06/11/15 QUEtiapine [SEROquel] 12.5 mg PO HS tab 08/06/16 Primidone [Mysoline] 50 mg PO BID #60 tab 09/03/16 Diazepam [Valium] 5 mg PO TID PRN #30 tab 10/21/16 ALPRAZolam [Xanax] 0.25 mg PO TID #10 tab 11/14/16 Allergies Allergy/AdvReac Type Severity Reaction Status Date / Time No Known Allergies Allergy Verified 12/07/16 12:27 Review of Systems ROS Statement: Those systems with pertinent positive or pertinent negative responses have been documented in the HPI. ROS Other: All systems not noted in ROS Statement are negative. 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 Past Anesthesia/Blood Transfusion Reactions: No Reported Reaction Past Psychological History: Anxiety, Depression Smoking Status: Former smoker Past Alcohol Use History: None Reported Past Drug Use History: None Reported - Past Family History Daughter(s) Family Medical History: No Reported History (Patient has 3 daughters no major medical problems.) Son(s) Family Medical History: No Reported History (Patient has one son no major medical problems.) Father Family Medical History: CVA/TIA Additional Family Medical History / Comment(s): Father of a CVA in his mid to late 70's. Mother Family Medical History: No Reported History Additional Family Medical History / Comment(s): Mother was healthy and lived to be 87/88 yrs old. General Exam - General Exam Comments Initial Comments: GENERAL: Patient is well-developed and well-nourished. Patient is nontoxic and well- hydrated and is in no acute distress. ENT: Neck is soft and supple. No significant lymphadenopathy is noted. Oropharynx is clear. Moist mucous membranes. Neck has full range of motion without eliciting any pain. EYES: The sclera were anicteric and conjunctiva were pink and moist. Extraocular movements were intact and pupils were equal round and reactive to light. Eyelids were unremarkable. PULMONARY: Unlabored respirations. Good breath sounds bilaterally. No audible rales rhonchi or wheezing was noted. CARDIOVASCULAR: There is a regular rate and rhythm without any murmurs gallops or rubs. ABDOMEN: Soft and nontender with normal bowel sounds. No palpable organomegaly was noted. There is no palpable pulsatile mass. SKIN: Skin is clear with no lesions or rashes and otherwise unremarkable. NEUROLOGIC: Patient is alert and oriented x3. Cranial nerves II through XII are grossly intact. Motor and sensory are also intact. Normal speech, volume and content. Symmetrical smile. Patient has very slight tremor in the face and arms occasionally daughter states this is much better than it normally. MUSCULOSKELETAL: Normal extremities with adequate strength and full range of motion. No lower extremity swelling or edema. No calf tenderness. LYMPHATICS: No significant lymphadenopathy is noted PSYCHIATRIC: Normal psychiatric evaluation. Normal interpersonal interactions appears functionally intact in deals appropriately with others. No signs of depression. No signs of anxiety. Limitations: no limitations Course Vital Signs 12/07/16 12/07/16 12/07/16 10:19 10:35 11:50 Temperature 99.4 F Pulse Rate 111 H 89 Respiratory 18 20 Rate Blood Pressure 185/89 O2 Sat by Pulse 88 L 92 L 93 L Oximetry 12/07/16 12:07 Temperature Pulse Rate 91 Respiratory 16 Rate Blood Pressure 163/77 O2 Sat by Pulse 94 L Oximetry Medical Decision Making - Medical Decision Making EKG shows normal sinus rhythm at 97 bpm [place] interval is 148 QRS is 80 QT interval 350 QTC is 444. Patient's EKG shows no ST segment elevation or depression or T wave abnormalities are noted. I compared this EKG to an old EKG there are no acute changes noted. Contrast extravasated so the CT of the chest was nondiagnostic so we could not rule out PE. CAT scan did however show large mass in the liver. Patient tells me now that she has had melanoma in the past. Patient also has had breast cancer in the past. I spoke with Dr. Boateng she agreed to admit the patient admitted the patient I consult the neurology for the tremors and pulmonology for possible PE. - Lab Data Result diagrams: 12/07/16 11:20 12/07/16 11:20 Lab Results 12/07/16 12/07/16 12/07/16 Range/Units 11:20 11:20 11:20 WBC 7.4 (3.8-10.6) k/uL RBC 4.93 (3.80-5.40) m/uL Hgb 16.6 H (11.4-16.0) gm/dL Hct 48.8 H (34.0-46.0) % MCV 98.9 (80.0-100.0) fL MCH 33.7 (25.0-35.0) pg MCHC 34.0 (31.0-37.0) g/dL RDW 13.3 (11.5-15.5) % Plt Count 178 (150-450) k/uL Neutrophils % 73 % Lymphocytes % 16 % Monocytes % 6 % Eosinophils % 3 % Basophils % 0 % Neutrophils # 5.4 (1.3-7.7) k/uL Lymphocytes # 1.2 (1.0-4.8) k/uL Monocytes # 0.4 (0-1.0) k/uL Eosinophils # 0.2 (0-0.7) k/uL Basophils # 0.0 (0-0.2) k/uL PT (9.0-12.0) sec INR (<1.1) APTT (22.0-30.0) sec D-Dimer (<0.60) mg/L FEU Sodium 143 (137-145) mmol/L Potassium 4.5 (3.5-5.1) mmol/L Chloride 109 H (98-107) mmol/L Carbon Dioxide 28 (22-30) mmol/L Anion Gap 6 mmol/L BUN 16 (7-17) mg/dL Creatinine 0.69 (0.52-1.04) mg/dL Est GFR (MDRD) Af Amer >60 (>60 ml/min/1.73 sqM) Est GFR (MDRD) Non-Af >60 (>60 ml/min/1.73 sqM) Glucose 109 H (74-99) mg/dL Calcium 10.6 H (8.4-10.2) mg/dL Magnesium 2.3 (1.6-2.3) mg/dL Total Bilirubin 1.0 (0.2-1.3) mg/dL AST 43 H (14-36) U/L ALT 44 (9-52) U/L Alkaline Phosphatase 99 (38-126) U/L Total Creatine Kinase <20 L (30-135) U/L CK-MB (CK-2) 0.4 (0.0-2.4) ng/mL CK-MB (CK-2) Rel Index 0.0 Troponin I 0.050 H* (0.000-0.034) ng/mL Total Protein 7.3 (6.3-8.2) g/dL Albumin 4.1 (3.5-5.0) g/dL 12/07/16 Range/Units 11:20 WBC (3.8-10.6) k/uL RBC (3.80-5.40) m/uL Hgb (11.4-16.0) gm/dL Hct (34.0-46.0) % MCV (80.0-100.0) fL MCH (25.0-35.0) pg MCHC (31.0-37.0) g/dL RDW (11.5-15.5) % Plt Count (150-450) k/uL Neutrophils % % Lymphocytes % % Monocytes % % Eosinophils % % Basophils % % Neutrophils # (1.3-7.7) k/uL Lymphocytes # (1.0-4.8) k/uL Monocytes # (0-1.0) k/uL Eosinophils # (0-0.7) k/uL Basophils # (0-0.2) k/uL PT 10.7 (9.0-12.0) sec INR 1.1 (<1.1) APTT 23.9 (22.0-30.0) sec D-Dimer 13.13 H (<0.60) mg/L FEU Sodium (137-145) mmol/L Potassium (3.5-5.1) mmol/L Chloride (98-107) mmol/L Carbon Dioxide (22-30) mmol/L Anion Gap mmol/L BUN (7-17) mg/dL Creatinine (0.52-1.04) mg/dL Est GFR (MDRD) Af Amer (>60 ml/min/1.73 sqM) Est GFR (MDRD) Non-Af (>60 ml/min/1.73 sqM) Glucose (74-99) mg/dL Calcium (8.4-10.2) mg/dL Magnesium (1.6-2.3) mg/dL Total Bilirubin (0.2-1.3) mg/dL AST (14-36) U/L ALT (9-52) U/L Alkaline Phosphatase (38-126) U/L Total Creatine Kinase (30-135) U/L CK-MB (CK-2) (0.0-2.4) ng/mL CK-MB (CK-2) Rel Index Troponin I (0.000-0.034) ng/mL Total Protein (6.3-8.2) g/dL Albumin (3.5-5.0) g/dL Critical Care Time Critical Care Time: Yes Total Critical Care Time: 35 Disposition Clinical Impression: Pulmonary embolism, Tremors of nervous system, Liver mass Disposition: ADMITTED IP TO THIS HOSP Referrals: Thony Malone MD [Primary Care Provider] - 1-2 days Time of Disposition: 14:28
[2016-12-07 11:38] LABS: Basophils % (A) 0 %; CHCM 32.5; Eosinophils # (A) 0.2 k/uL (0-0.7); Eosinophils % (A) 3 %; HCT 48.8 % (34.0-46.0); HDW 2.21; HGB 16.6 gm/dL (11.4-16.0); Luc # (Auto) 0.17; Luc % (Auto) 2; Lymphocytes # (A) 1.2 k/uL (1.0-4.8); Lymphocytes % (A) 16 %; MCH 33.7 pg (25.0-35.0); MCV 98.9 fL (80.0-100.0); Mean Platelet Volume 7.1; Monocytes # (A) 0.4 k/uL (0-1.0); Monocytes % (A) 6 %; Neutrophils # (A) 5.4 k/uL (1.3-7.7); Neutrophils % (A) 73 %; RBC 4.93 m/uL (3.80-5.40); RDW 13.3 % (11.5-15.5); WBC 7.4 k/uL (3.8-10.6); WBC (Perox) 7.24
[2016-12-07 11:52] LABS: ALT 44 U/L (9-52); AST 43 U/L (14-36); Alkaline Phosphatase 99 U/L (38-126); Anion Gap 6 mmol/L; Blood Urea Nitrogen 16 mg/dL (7-17); Calcium 10.6 mg/dL (8.4-10.2); Carbon Dioxide 28 mmol/L (22-30); Chloride 109 mmol/L (98-107); Glucose 109 mg/dL (74-99); Magnesium 2.3 mg/dL (1.6-2.3); Non-African American GFR(MDRD) >60 (>60 ml/min/1.73 sqM); Potassium 4.5 mmol/L (3.5-5.1); Sodium 143 mmol/L (137-145); Total Protein 7.3 g/dL (6.3-8.2)
[2016-12-07 11:54] LABS: INR 1.1 (<1.1); Partial Thromboplastin Time 23.9 sec (22.0-30.0); Prothrombin Time 10.7 sec (9.0-12.0)
[2016-12-07 11:55] LABS: Creatine Kinase <20 U/L (30-135)
--- NOTE | 2016-12-07 11:58 | XR ---
EXAMINATION TYPE: XR chest 2V DATE OF EXAM: 12/07/2016 COMPARISON: NONE INDICATION: Difficulty breathing TECHNIQUE: Frontal and lateral views of the chest are obtained. FINDINGS: The heart size is normal. The pulmonary vasculature is normal. The lungs are clear. Surgical clips in the left axillary region. IMPRESSION: 1. No acute pulmonary process.
[2016-12-07 12:08] LABS: Creatine Kinase MB 0.4 ng/mL (0.0-2.4)
[2016-12-07] MEDS ORDERED: RX INFO: IV CONTRAST WAS GIVEN 1 EACH MISC MISCELLANE PRN (12:10)
--- NOTE | 2016-12-07 14:14 | CT ---
CT CHEST FOR PULMONARY EMBOLISM. EXAMINATION TYPE: CT chest angio for PE DATE OF EXAM: 12/07/2016 INDICATION: Tremors CT DLP: 429.40 mGycm, Automated exposure control for dose reduction was used. CONTRAST: Patient injected with 100 ml mL of Omnipaque 350. Appears to be complete extravasation of c ontrast. No contrast is within the system during the evaluation COMPARISON: NONE TECHNIQUE: CT of the chest is performed on a spiral scan at 2 mm thick sections. Study is performed with intravenous contrast timed for evaluation for pulmonary embolism. This will limit additional po rtions of the evaluation. 3-D MIP images reconstructed by the technologist are reviewed on the compu ter in the coronal and sagittal planes. FINDINGS: Study is nondiagnostic for pulmonary embolism. Coronary artery calcifications present. Vascular calcifications within the aorta. There is a large hypodensity within the right lobe liver measuring approximately 7.7 cm in size. Isidro tional workup is recommended. No mediastinal or hilar adenopathy enlarged by CT criteria is evident. The ascending aorta diameter at the level of the main pulmonary artery is 3.8 cm. The main pulmonary artery diameter at the bifur cation is 2.9 cm. There is a punctate density in the posterior lateral left apex. A punctate densities in the lateral r ight apex. There is a 0.7 cm nodule within the anterior left upper lobe. Series 10 image 24. 0.4 cm n odules within the anterior right upper lobe. Series 10 image 28. There are multiple additional pulmon jaylin nodules scattered within the bilateral lungs on lung windows. These are predominantly in the uppe r lung kidd. IMPRESSIONS: 1. Study is nondiagnostic for pulmonary embolism. Extravasation of contrast was evident. 2. Multiple bilateral pulmonary nodules greater in the upper lung field suspicious for metastatic dis ease. 3. Large right hepatic mass. Additional workup is recommended. Primary and metastatic disease should be considered.
[2016-12-07] MEDS ORDERED: HEPARIN SODIUM,PORCINE 10,000 UNIT/ML 1 ML VIAL IV ONE (14:23)
[2016-12-07] MEDS ORDERED: SODIUM CHLORIDE 0.9% 1,000 ML IV ONE (15:07)
[2016-12-07] MEDS: HEPARIN SODIUM,PORCINE/D5W PMX 25,000 UNIT in DEXTROSE/WATER 1 500ML.BAG IV SCH (15:23)
[2016-12-07 16:21] VITALS: BMI 24.3
[2016-12-07] MEDS ORDERED: DIAZEPAM 5 MG TAB PO PRN (17:18)
--- NOTE | 2016-12-07 19:51 | P.CNNES ---
History of Present Illness Consult date: 12/07/16 Reason for Consult: Patient being evaluated for tremors. History of Present Illness: This patient is a 86-year-old right-handed white female was brought to the emergency room today for evaluation of difficulty with breathing and shortness of breath. Patient has a history of recurrent tremors which have been progressive over the last 1 year. She has had multiple admissions to the emergency room for evaluation of the tremors. She was seen in October as well as in August with similar complaints. She was felt to have probable essential tremors and has been taking Mysoline. This has not been of any help as she continues to have frequent tremors. Patient is not a very good historian but apparently was seeing a physician in [place] in the past. She is now living in an apartment in [place] and has been seeing Dr. Malone as her primary care physician. As noted she was seen in August with similar symptoms of tremors. She was felt to have underlying dementia and it was felt the tremors may be secondary to this etiology. Patient apparently stated in the ER that she frequently gets tremors on and off throughout the day. As mentioned she has been taking Mysoline 50 mg twice a day with no effect on the tremors. Patient was evaluated for her shortness of breath and underwent a CTA angiogram of the chest for possible pulmonary embolus. Study was nondiagnostic for pulmonary embolus. Multiple bilateral pulmonary nodules were noted suggesting possible metastatic lesion. There was also a large right hepatic mass. Patient was admitted to the hospital for further evaluation. We're waiting a oncology consultation to be done for this patient. The patient is a poor historian. She does follow simple commands. She states the tremors when she gets them mostly involves her hands. She is unable to elaborate on the extent of the tremors are long she has been having these symptoms. The patient did undergo a computed tomography scan of the brain back on 09/01/2016. This CAT scan reveals cerebral atrophy and chronic small vessel ischemic changes. The patient states she does experience some stiffness in her muscles mostly in the upper extremities. She apparently ambulates at home with the use of a walker. She denies any recent falls or head injury. She is now been admitted and neurology has been consulted for further evaluation and recommendations. Review of Systems Constitutional: Denies chills, Denies fever Eyes: denies blurred vision, denies pain Ears, nose, mouth and throat: Denies headache, Denies sore throat Cardiovascular: Denies chest pain, Denies shortness of breath Respiratory: Denies cough Gastrointestinal: Denies abdominal pain, Denies diarrhea, Denies nausea, Denies vomiting Genitourinary: Denies dysuria, Denies hematuria Musculoskeletal: Reports gait dysfunction, Reports muscle weakness, Denies myalgias Integumentary: Denies pruritus, Denies rash Neurological: Reports change in mentation, Reports confusion, Reports gait dysfunction, Reports memory loss, Reports tremors, Denies numbness, Denies weakness Psychiatric: Denies anxiety, Denies depression Endocrine: Denies fatigue, Denies weight change Past Medical History Past Medical History: Heart Failure, Hyperlipidemia, Hypertension Additional Past Medical History / Comment(s): vertigo, breast ca, rt mastectomy , tremors History of Any Multi-Drug Resistant Organisms: VRE Date of last positivie culture/infection: 08/08/16 MDRO Source:: Urine Past Surgical History: Breast Surgery, Orthopedic Surgery Additional Past Surgical History / Comment(s): skin patch 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 Cataract surgery Past Anesthesia/Blood Transfusion Reactions: No Reported Reaction Past Psychological History: Anxiety, Depression Additional Psychological History / Comment(s): Pt resides at [facility] in an apartment. Her daughters come over daily and give her lunch and shower her. She has an aide in the morning twice a day. She has a 4 wheeled walker to ambulate. Her family takes her to [facility]. Smoking Status: Former smoker - Past Family History Daughter(s) Family Medical History: No Reported History Son(s) Family Medical History: No Reported History Father Family Medical History: CVA/TIA Additional Family Medical History / Comment(s): Father of a CVA in his mid to late 70's. Mother Family Medical History: No Reported History Additional Family Medical History / Comment(s): Mother was healthy and lived to be 87/88 yrs old. Medications and Allergies Home Medications Medication Instructions Recorded Confirmed Type Cholecalciferol [Vitamin D3] 1,000 unit PO DAILY 09/01/16 12/07/16 History Docusate [Colace] 100 mg PO HS 09/01/16 12/07/16 History Multivitamins, Thera [Multivitamin 1 tab PO DAILY 09/01/16 12/07/16 History (formulary)] Trimethobenzamide HCl [Tigan] 300 mg PO DAILY 10/21/16 12/07/16 History Allergies Allergy/AdvReac Type Severity Reaction Status Date / Time No Known Allergies Allergy Verified 12/07/16 12:27 Physical Examination - Vital Signs Vital Signs: Vital Signs Temp Pulse Pulse Resp BP BP Pulse Ox 12/07/16 15:44 96.8 F L 85 18 122/72 97 12/07/16 15:27 98.5 F 89 16 132/73 94 L 12/07/16 12:07 91 16 163/77 94 L 12/07/16 11:50 89 20 93 L 12/07/16 10:35 92 L 12/07/16 10:19 99.4 F 111 H 18 185/89 88 L Intake and Output 12/07/16 12/07/16 12/07/16 06:59 14:59 22:59 Intake Total 500 Balance 500 Intake: Amount of Fluid Infused ( 500 ml) Other: Weight 56.699 kg 58.5 kg Patient Weight 12/08/16 06:59 Weight 58.5 kg - Constitutional General appearance: average body habitus, cooperative - EENT EENT: PERRL, mucous membranes moist - Respiratory Respiratory: lungs clear, normal breath sounds - Cardiovascular Cardiovascular: regular rate, normal S1, normal S2 Extremities: no peripheral edema bilaterally - Gastrointestinal Gastrointestinal: normoactive bowel sounds - Integumentary Integumentary: normal - Neurologic Cranial nerve examination: PERRL, EOMI, VFF, V1/V2/V3 grossly intact, face symmetric, tongue midline, intact gag reflex, intact corneal reflex, normal palatal elevation Speech examination: intact Sensorimotor examination: intact Motor examination - right side: 35: biceps, triceps, wrist flexion, wrist extension, fluid dynamicist, hip flexors, knee extensors, dorsiflexion, toe extension (EHL) , plantarflexion Motor examination - left side: 35: biceps, triceps, wrist flexion, wrist extension, fluid dynamicist, hip flexors, knee extensors, dorsiflexion, toe extension (EHL) , plantarflexion Detailed sensory examination: intact Reflex and gait examination: intact Reflexes: 1+: ankle, bicep, knee, tricep - Musculoskeletal Musculoskeletal: no pain - Psychiatric Psychiatric: mood/affect appropriate, cooperative Results - Laboratory Findings CBC and BMP: 12/07/16 11:20 12/07/16 11:20 Abnormal Lab Findings: Abnormal Labs 12/07/16 12/07/16 12/07/16 11:20 11:20 11:20 Hgb 16.6 H Hct 48.8 H D-Dimer Chloride 109 H Glucose 109 H Calcium 10.6 H AST 43 H Total Creatine Kinase <20 L Troponin I 0.050 H* 12/07/16 11:20 Hgb Hct D-Dimer 13.13 H Chloride Glucose Calcium AST Total Creatine Kinase Troponin I Assessment and Plan (1) Parkinsonism Status: Acute Code(s): G20 - PARKINSON'S DISEASE (2) Dementia Status: Acute Code(s): F03.90 - UNSPECIFIED DEMENTIA WITHOUT BEHAVIORAL DISTURBANCE (3) Liver mass Status: Acute Code(s): R16.0 - HEPATOMEGALY, NOT ELSEWHERE CLASSIFIED (4) Failure to thrive Status: Acute Code(s): HSU1462 - Plan: This patient is a 86-year-old female who was admitted to hospital with shortness of breath and recurrent tremors. Patient underwent a CTA angiogram of the chest which reveals multiple pulmonary nodules and a large liver mass. She has been also having recurrent tremors over the past 6 months. Tremors are mostly noticed in her hand. Her neurological examination reveals evidence of some cogwheel rigidity in the upper extremities along with some suspension tremor. She she is a very poor historian and apparently has underlying dementia. Her most recent computed tomography scan of the brain does reveal cortical atrophy. Her clinical exam findings are suggesting parkinsonism. We' ve suggested a trial of Sinemet to see if she responds. She is being evaluated by oncology for liver mass and possible metastatic disease. We'll await further recommendations from oncology. Her overall prognosis at this time remains very guarded. We will continue close neurological follow-up of this patient during this admission. Time with Patient: Greater than 30
[2016-12-07] MEDS: amLODIPine 5 MG TAB PO SCH (20:37)
[2016-12-07] MEDS: PRIMIDONE 50 MG TAB PO SCH (20:38)
[2016-12-07] MEDS: CARBIDOPA-LEVODOPA 25-100 MG 1 EACH TAB PO SCH (20:38)
[2016-12-07] MEDS: DOCUSATE 100 MG CAP PO SCH (20:38)
[2016-12-07] MEDS: QUEtiapine 25 MG TAB PO SCH (20:38)
[2016-12-07] MEDS: ALPRAZolam 0.25 MG TAB PO SCH (23:41)
[2016-12-08 04:04] LABS: Appearance,Urine Clear (Clear); Bilirubin,Urine Negative (Negative); Glucose,Urine (UA) Negative (Negative); Ketones,Urine Negative (Negative); Leukocyte Esterase,Urine Negative (Negative); Nitrite,Urine Negative (Negative); PH, Urine 6.5 (5.0-8.0); Protein,Urine Negative (Negative); Specific Gravity,Urine 1.014 (1.001-1.035); UA Billing (MACRO vs. MICRO) CHEM; Urobilinogen,Urine <2.0 mg/dL (<2.0)
[2016-12-08] MEDS: CARBIDOPA-LEVODOPA 25-100 MG 1 EACH TAB PO SCH ×2 (09:03→20:06)
[2016-12-08] MEDS: PANTOPRAZOLE 40 MG TABLET PO SCH (09:03)
[2016-12-08] MEDS: PRIMIDONE 50 MG TAB PO SCH ×2 (09:03→20:06)
[2016-12-08] MEDS: amLODIPine 5 MG TAB PO SCH ×2 (09:03→20:06)
[2016-12-08] MEDS: TRIMETHOBENZAMIDE 300 MG CAP PO SCH (09:03)
[2016-12-08] MEDS: CHOLECALCIFEROL 1,000 UNIT TAB PO SCH (09:03)
[2016-12-08] MEDS: ALPRAZolam 0.25 MG TAB PO SCH ×3 (09:04→22:00)
--- NOTE | 2016-12-08 11:29 | P.CONS ---
History of Present Illness - Reason for Consult Consult date: 12/08/16 Possible liver mass - History of Present Illness The patient is an 86-year-old lady, who is a resident of an assisted living facility. The patient has a long-standing history of tremors which can be occasionally severe, usually after exertion. The patient came in to the emergency room yesterday, she was experiencing marked tremors, worse than usual. As part of her workup, she had a chest x-ray done which was negative. She then had a CTA of the chest, which was nondiagnostic for pulmonary embolus, due to suboptimal contrast bolus. Incidentally, it showed an area of hypodensity in the right lobe the liver measuring 7-8 cm in largest dimension. Consult was therefore placed for further evaluation. The patient gives a history of cancer in the breast on the right side, treated with mastectomy. She states that she had the "something else" in the left breast that was treated with surgery and then radiation. This was many years ago. The patient was unable to remember any exact dates. However she states that she was not recommended any chemotherapy or hormone therapy. She denies any history of chronic liver disease. Review of Systems Constitutional: Reports as per HPI, Reports weakness Eyes: denies blurred vision, denies pain Ears: bilateral: decreased hearing Ears, nose, mouth and throat: Denies headache, Denies sore throat Breasts: bilateral: as per HPI Cardiovascular: Reports decreased exercise tolerance Respiratory: Reports dyspnea Gastrointestinal: Reports constipation (Occasional. She has had a colonoscopy before but could not recall the exact time), Denies abdominal pain, Denies diarrhea, Denies nausea, Denies vomiting Genitourinary: Denies dysuria, Denies hematuria Menstruation: Reports postmenopausal Musculoskeletal: Denies myalgias Integumentary: Denies pruritus, Denies rash Neurological: Reports tremors, Reports weakness Psychiatric: Reports anxiety Endocrine: Denies fatigue, Denies weight change Hematologic/Lymphatic: Reports as per HPI Past Medical History Past Medical History: Heart Failure, Hyperlipidemia, Hypertension Additional Past Medical History / Comment(s): vertigo, breast ca, rt mastectomy , tremors History of Any Multi-Drug Resistant Organisms: NGUYENE Year Discovered:: 08/08/16 MDRO Source:: Urine Past Surgical History: Breast Surgery, Orthopedic Surgery Additional Past Surgical History / Comment(s): skin patch 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 Cataract surgery Past Anesthesia/Blood Transfusion Reactions: No Reported Reaction Past Psychological History: Anxiety, Depression Additional Psychological History / Comment(s): Pt resides at [facility] Living in an apartment. Her daughters come over daily and give her lunch and shower her. She has an aide in the morning twice a day. She has a 4 wheeled walker to ambulate. Her family takes her to [employer]. Smoking Status: Former smoker - Past Family History Daughter(s) Family Medical History: No Reported History Son(s) Family Medical History: No Reported History Father Family Medical History: CVA/TIA Additional Family Medical History / Comment(s): Father of a CVA in his mid to late 70's. Mother Family Medical History: No Reported History Additional Family Medical History / Comment(s): Mother was healthy and lived to be 87/88 yrs old. Medications and Allergies Home Medications Medication Instructions Recorded Confirmed Type Cholecalciferol [Vitamin D3] 1,000 unit PO DAILY 09/01/16 12/07/16 History Docusate [Colace] 100 mg PO HS 09/01/16 12/07/16 History Multivitamins, Thera [Multivitamin 1 tab PO DAILY 09/01/16 12/07/16 History (formulary)] Trimethobenzamide HCl [Tigan] 300 mg PO DAILY 10/21/16 12/07/16 History Allergies Allergy/AdvReac Type Severity Reaction Status Date / Time No Known Allergies Allergy Verified 12/07/16 12:27 Physical Exam Vitals: Vital Signs Temp Pulse Pulse Resp BP BP Pulse Ox 12/08/16 08:00 96.9 F L 72 18 118/59 96 12/08/16 04:00 96.5 F L 72 18 105/59 98 12/08/16 00:00 83 18 12/07/16 23:56 96.9 F L 83 18 118/70 96 12/07/16 20:00 98.0 F 100 18 142/85 95 12/07/16 15:44 96.8 F L 85 18 122/72 97 12/07/16 15:27 98.5 F 89 16 132/73 94 L 07/01/17 12:07 91 16 163/77 94 L 12/07/16 11:50 89 20 93 L Intake and Output 12/07/16 12/08/16 12/08/16 22:59 06:59 14:59 Intake Total 643.21 1080.143 440 Balance 643.21 1080.143 440 Intake: IV 145 140 heparin 145 140 Amount of Fluid Infused ( 500 ml) Intake, IV Titration 143.21 935.143 300 Amount Heparin Sodium,Porcine/ 143.21 135.143 D5w Pmx 25,000 unit In Dextrose/Water 1 500ml. bag @ 18 UNITS/KG/HR 20. 41 mls/hr IV .Q24H [facility] Rx #:[id number] Sodium Chloride 0.9% 1, 800 300 000 ml @ 100 mls/hr IV . Q10H [facility] Rx#:[id number] Other: Voiding Method Diaper Diaper Diaper Incontinent Incontinent Incontinent Weight 58.5 kg 59.5 kg - Constitutional General appearance: no acute distress - EENT Eyes: EOMI, PERRLA ENT: hearing grossly normal, normal oropharynx - Neck Neck: no lymphadenopathy - Respiratory Respiratory: bilateral: CTA - Cardiovascular Rhythm: regular Heart sounds: normal: S1, S2 - Gastrointestinal General gastrointestinal: normal bowel sounds, soft - Integumentary Integumentary: normal - Neurologic Neurologic: focal deficits (Hard of hearing) - Musculoskeletal Musculoskeletal: generalized weakness - Psychiatric At least mild memory deficit Psychiatric: A&O x's 3, appropriate affect Results CBC & Chem 7: 12/07/16 11:20 12/07/16 11:20 Labs: Abnormal Lab Results - Last 24 Hours (Table) 12/07/16 12/07/16 12/07/16 Range/Units 11:20 11:20 11:20 Hgb 16.6 H (11.4-16.0) gm/dL Hct 48.8 H (34.0-46.0) % APTT (22.0-30.0) sec D-Dimer (<0.60) mg/L FEU Chloride 109 H (98-107) mmol/L Glucose 109 H (74-99) mg/dL Calcium 10.6 H (8.4-10.2) mg/dL AST 43 H (14-36) U/L Total Creatine Kinase <20 L (30-135) U/L Troponin I 0.050 H* (0.000-0.034) ng/mL 12/07/16 12/07/16 12/08/16 Range/Units 11:20 21:46 04:26 Hgb (11.4-16.0) gm/dL Hct (34.0-46.0) % APTT 85.0 H 82.0 H (22.0-30.0) sec D-Dimer 13.13 H (<0.60) mg/L FEU Chloride (98-107) mmol/L Glucose (74-99) mg/dL Calcium (8.4-10.2) mg/dL AST (14-36) U/L Total Creatine Kinase (30-135) U/L Troponin I (0.000-0.034) ng/mL Chest x-ray: report reviewed CT scan - chest: report reviewed, image reviewed Assessment and Plan (1) Liver mass Narrative/Plan: The CT of the chest reported a 7+ centimeter liver mass. No other abnormal finding was noted. Of note, the contrast bolus was quite suboptimal. On personal review of the images, there did appear to be an area of hypodensity. However it was quite hard to define any further, because of poor passage of contrast. The CT findings, and possible implications were discussed with the patient. At this time the patient will need more definitive imaging. An MRI of the liver will be ordered. Her labs do not show any specific abnormality. I will check alpha-fetoprotein , CEA and CA 19-9 Status: Acute (2) Tremors of nervous system Narrative/Plan: This was her main presenting complaint. She does have chronic complaints in this regard but apparently this episode was worse than usual. To me, she actually denied any chest pain or shortness of breath compared to her baseline. Neurology is on consult. Defer to the admitting service and urology for further management. Status: Acute
--- NOTE | 2016-12-08 11:57 | P.HPIM ---
History of Present Illness H&P Date: 12/08/16 This is an 86-year-old female with a previous medical history significant for hypertension and hypertensive cardio vascular disease, hyperlipidemia, Alzheimer dementia, recurrent UTI, breast cancer status post right mastectomy, DVT of the left leg. Patient was brought into [facility] emergency center regarding tremor. D-dimer was 13.13, troponin was 0.050. Urinalysis was clear with nitrate and leukoesterase negative. CTA of the chest was nondiagnostic for pulmonary embolism. Extravasation of contrast was evident. Multiple bilateral pulmonary nodules greater in the upper lung field suspicious for metastatic disease. Large right hepatic mass. Patient was admitted to the selective care unit and has been seen in consultation by Dr. Ramos regarding tremors for 6 months mostly in her hand most likely secondary to parkinsonism and suggest trial of Sinemet. EEG was ordered and pending. Consult in place for Dr. Rose regarding possible PE and also oncology for liver mass. Patient is complaining of her right arm being sore and it bothers her when she tries to eat. She states she thinks it' s not from an injury but from old age. Patient did require straight cath to obtain urinalysis last evening. Patient does state that she lives alone at [facility] and uses a walker for ambulation. Review of Systems All systems: negative Constitutional: Denies chills, Denies fever Eyes: denies blurred vision, denies pain Ears, nose, mouth and throat: Denies headache, Denies sore throat Cardiovascular: Denies chest pain, Denies shortness of breath Respiratory: Denies cough Gastrointestinal: Denies abdominal pain, Denies diarrhea, Denies nausea, Denies vomiting Genitourinary: Denies dysuria, Denies hematuria Musculoskeletal: Denies myalgias Integumentary: Denies pruritus, Denies rash Neurological: Denies numbness, Denies weakness Psychiatric: Denies anxiety, Denies depression Endocrine: Denies fatigue, Denies weight change Past Medical History Past Medical History: Heart Failure, Hyperlipidemia, Hypertension Additional Past Medical History / Comment(s): vertigo, breast ca, rt mastectomy , tremors History of Any Multi-Drug Resistant Organisms: VRE Date of last positivie culture/infection: 08/08/16 MDRO Source:: Urine Past Surgical History: Breast Surgery, Orthopedic Surgery Additional Past Surgical History / Comment(s): skin patch 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 Cataract surgery Past Anesthesia/Blood Transfusion Reactions: No Reported Reaction Past Psychological History: Anxiety, Depression Additional Psychological History / Comment(s): Pt resides at [facility] Living in an apartment. Her daughters come over daily and give her lunch and shower her. She has an aide in the morning twice a day. She has a 4 wheeled walker to ambulate. Her family takes her to [employer]. Smoking Status: Former smoker - Past Family History Daughter(s) Family Medical History: No Reported History Additional Family Medical History / Comment(s): Patient has 3 daughters with no major medical problems. Son(s) Family Medical History: No Reported History Additional Family Medical History / Comment(s): Patient has one son with no major medical problems. Father Family Medical History: CVA/TIA Additional Family Medical History / Comment(s): Father of a CVA in his mid to late 70's. Mother Family Medical History: No Reported History Additional Family Medical History / Comment(s): Mother was healthy and lived to be 87/88 yrs old. Medications and Allergies Home Medications Medication Instructions Recorded Confirmed Type Cholecalciferol [Vitamin D3] 1,000 unit PO DAILY 09/01/16 12/07/16 History Docusate [Colace] 100 mg PO HS 09/01/16 12/07/16 History Multivitamins, Thera [Multivitamin 1 tab PO DAILY 09/01/16 12/07/16 History (formulary)] Trimethobenzamide HCl [Tigan] 300 mg PO DAILY 10/21/16 12/07/16 History Allergies Allergy/AdvReac Type Severity Reaction Status Date / Time No Known Allergies Allergy Verified 12/07/16 12:27 Physical Exam Vitals: Vital Signs Temp Pulse Pulse Resp BP BP Pulse Ox 12/08/16 04:00 96.5 F L 72 18 105/59 98 12/08/16 00:00 83 18 12/07/16 23:56 96.9 F L 83 18 118/70 96 12/07/16 20:00 98.0 F 100 18 142/85 95 12/07/16 15:44 96.8 F L 85 18 122/72 97 12/07/16 15:27 98.5 F 89 16 132/73 94 L 12/07/16 12:07 91 16 163/77 94 L 12/07/16 11:50 89 20 93 L 12/07/16 10:35 92 L 12/07/16 10:19 99.4 F 111 H 18 185/89 88 L Intake and Output 12/07/16 12/08/16 12/08/16 22:59 06:59 14:59 Intake Total 643.21 1080.143 Balance 643.21 1080.143 Intake: IV 145 heparin 145 Amount of Fluid Infused ( 500 ml) Intake, IV Titration 143.21 935.143 Amount Heparin Sodium,Porcine/ 143.21 135.143 D5w Pmx 25,000 unit In Dextrose/Water 1 500ml. bag @ 18 UNITS/KG/HR 20. 41 mls/hr IV .Q24H [facility] Rx #:[id number] Sodium Chloride 0.9% 1, 800 000 ml @ 100 mls/hr IV . Q10H [facility] Rx#:[id number] Other: Voiding Method Diaper Diaper Incontinent Incontinent Weight 58.5 kg 59.5 kg General appearance: no acute distress, thin - EENT Eyes: anicteric sclerae, EOMI, PERRLA, no ptosis, no scleral icterus, normal appearance ENT: hard of hearing, NA/AT, normal oropharynx, no thrush Ears: bilateral: normal - Neck Neck: no lymphadenopathy, normal ROM, no rigidity, no stridor, no thyromegaly Carotids: bilateral: upstroke delayed Thyroid: negative: normal size - Respiratory Respiratory: bilateral: diminished, negative: dullness, rales, rhonchi, wheezing , prolonged expiration, prolonged inspiration - Cardiovascular Rhythm: regular Heart sounds: normal: S1, S2 Abnormal Heart Sounds: systolic murmur, no rub, no S3 Gallop, no S4 Gallop, no click - Gastrointestinal General gastrointestinal: normal bowel sounds, soft, no splenomegaly, no tenderness, no umbilical hernia, no ventral hernia - Integumentary Integumentary: normal, normal turgor - Neurologic Neurologic: CNII-XII intact - Musculoskeletal Musculoskeletal: generalized weakness, strength equal bilaterally - Psychiatric Psychiatric: no A&O x's 3, no appropriate affect, no intact judgment & insight Results CBC & Chem 7: 12/07/16 11:20 12/07/16 11:20 Labs: Abnormal Lab Results - Last 24 Hours (Table) 12/07/16 12/07/16 12/07/16 Range/Units 11:20 11:20 11:20 Hgb 16.6 H (11.4-16.0) gm/dL Hct 48.8 H (34.0-46.0) % APTT (22.0-30.0) sec D-Dimer (<0.60) mg/L FEU Chloride 109 H (98-107) mmol/L Glucose 109 H (74-99) mg/dL Calcium 10.6 H (8.4-10.2) mg/dL AST 43 H (14-36) U/L Total Creatine Kinase <20 L (30-135) U/L Troponin I 0.050 H* (0.000-0.034) ng/mL 12/07/16 12/07/16 12/08/16 Range/Units 11:20 21:46 04:26 Hgb (11.4-16.0) gm/dL Hct (34.0-46.0) % APTT 85.0 H 82.0 H (22.0-30.0) sec D-Dimer 13.13 H (<0.60) mg/L FEU Chloride (98-107) mmol/L Glucose (74-99) mg/dL Calcium (8.4-10.2) mg/dL AST (14-36) U/L Total Creatine Kinase (30-135) U/L Troponin I (0.000-0.034) ng/mL Thrombosis Risk Factor Assmnt - DVT/VTE Prophylaxis DVT/VTE Prophylaxis: Pharmacologic Prophylaxis ordered - Choose All That Apply Any of the Below Risk Factors Present?: Yes Each Factor Represents 1 point: Medical pt on bed rest Other Risk Factors: Yes Each Risk Factor Represents 3 Points: Age 75 years or older, History of DVT/PE Thrombosis Risk Factor Assessment Total Risk Factor Score: 7 Thrombosis Risk Factor Assessment Level: High Risk Assessment and Plan Plan: 1. Right arm pain and tremor for which patient has had multiple ER visits. Consult with Dr. Ramos. 2. Elevated d-dimer with CTA of the chest inconclusive for PE. Patient started on heparin drip. Pulmonary consult with Dr. Rose. 2. Right hepatic mass and pulmonary nodules suspicious for metastatic disease. Oncology consult appreciated. MRI ordered 3. Hand tremor evaluated by Dr. Ramos with concern for parkinsonism. Sinemet one twice daily started. It appears patient has been on primidone 50 mg twice daily for essential tremor 4. Alzheimer dementia that appears to be moderate to severe. Patient may need to be started on Exelon patch. Currently on Seroquel. 5. Hypertension and hypertensive cardiovascular disease. Continue amlodipine 5 mg orally twice every day. 6. Vitamin D deficiency. Continue vitamin D supplement. 7. History of breast cancer post right mastectomy. 8. History of hyperparathyroidism. Post parathyroidectomy. 8. DVT prophylaxis. Currently on heparin drip. 9. GI prophylaxis. Continue Protonix 40 mg orally once every day. 10. CODE STATUS: No code Discharge plan: To be determined Impression and plan of care have been directed as dictated by the signing physician. Nicolette Chirinos nurse practitioner acting as scribe for signing physician.
--- NOTE | 2016-12-08 12:42 | P.PN ---
Subjective This patient is a 86-year-old right-handed white female who was seen in neurology consultation yesterday for tremors. Her neurological exam findings yesterday suggested mild parkinsonism. She was started on low-dose Sinemet as a trial to see if this may help with her underlying symptoms of tremor. She has been symptomatic for the past 6 months. On admission she was also found to have evidence of a 7 cm hypodensity in the right lobe of the liver. She has been seen by oncology who ordered an MRI of the liver. She does have history of breast cancer on the right side and was treated with a mastectomy. We will await further recommendations from oncology regarding further evaluation. The patient was started on Sinemet yesterday. She is already noted some improvement with the tremors today according to the patient. She is not a very reliable sources she does have history of underlying moderate dementia. At this time we will continue her on Sinemet for at least the next few days to see how the response for the tremors may be. She may require further adjustment of the dose depending on her response. The patient has been started on Exelon patch for treatment of her Alzheimer's dementia. We did agree with this and we will continue close follow-up. Overall the patient seems to be resting comfortably. She is to be evaluated for possibility of pulmonary embolus by pulmonary medicine as well. Her overall prognosis at this time remains very guarded. Objective - Vital Signs Vital signs: Vital Signs Temp 96.9 F L 12/08/16 08:00 Pulse 72 12/08/16 08:00 Resp 18 12/08/16 08:00 BP 118/59 12/08/16 08:00 Pulse Ox 96 12/08/16 08:00 Intake & Output 12/07/16 12/08/16 12/08/16 18:59 06:59 18:59 Intake Total 500 1223.353 440 Balance 500 1223.353 440 Weight 58.5 kg 59.5 kg Intake: IV 145 140 heparin 145 140 Amount of Fluid Infused ( 500 ml) Intake, IV Titration 1078.353 300 Amount Heparin Sodium,Porcine/ 278.353 D5w Pmx 25,000 unit In Dextrose/Water 1 500ml. bag @ 18 UNITS/KG/HR 20. 41 mls/hr IV .Q24H [facility] Rx #:[id number] Sodium Chloride 0.9% 1, 800 300 000 ml @ 100 mls/hr IV . Q10H [facility] Rx#:[id number] Other: Voiding Method Diaper Diaper Incontinent Incontinent - Exam Physical examination: PHYSICAL EXAMINATION: Patient is resting comfortably in bed. VITAL SIGNS: Blood pressure is [118/59]. Heart rate is [72]. Respiration is [16] . Temperature is [96.9]. HEENT: Head is atraumatic, neck is supple, there were no carotid bruits. CHEST: Lungs are clear to auscultation and percussion. CARDIAC: S1, S2 normal rate and rhythm. There is no murmur. ABDOMEN: Soft and nontender. Bowel sounds are present. EXTREMITIES: There is no pedal edema. Peripheral pulses are present. Neurological examination: Patient's neurological examination is unchanged from yesterday. She does not appear to have rest tremor on exam this morning. - Labs CBC & Chem 7: 12/07/16 11:20 12/07/16 11:20 Labs: Abnormal Lab Results - Last 24 Hours (Table) 12/07/16 12/08/16 Range/Units 21:46 04:26 APTT 85.0 H 82.0 H (22.0-30.0) sec Assessment and Plan (1) Parkinsonism Status: Acute Code(s): G20 - PARKINSON'S DISEASE (2) Dementia Status: Acute Code(s): F03.90 - UNSPECIFIED DEMENTIA WITHOUT BEHAVIORAL DISTURBANCE (3) Liver mass Status: Acute Code(s): R16.0 - HEPATOMEGALY, NOT ELSEWHERE CLASSIFIED (4) Failure to thrive Status: Acute Code(s): SOC0141 - Plan: This patient was seen in neurology consultation yesterday for evaluation of tremors. She had findings suggesting mild parkinsonism. She has been started on low-dose Sinemet. We will continue to monitor her progress on this dosage with adjustment as needed. Patient clinically states she is feeling better with less tremors today. She is being evaluated by oncology for right lobe liver mass. MRI of the liver has been ordered. We will continue close neurological follow-up of this patient during this admission. She has a history of underlying dementia and has been started on Exelon patch. Her overall prognosis at this time remains guarded.
--- NOTE | 2016-12-08 13:05 | P.CNPUL ---
History of Present Illness Consult date: 12/08/16 Reason for consult: abnormal CXR/CT History of present illness: 86-year-old female patient, quite debilitated, lives in an assisted living, with a remote history of breast cancer and a previous right mastectomy, was also known to have chronic tremors with been in and out of the hospital multiple occasions because of poorly controlled tremors. Yesterday she came into the emergency department for the same. She was seen by Dr. Ayad Marshall. No mention of any shortness of breath. A CT angios the chest was done and the bolus itself was suboptimal and no comments can be made as far as filling defects or pulmonary embolism. Nevertheless, the CAT scan showed a large 7 cm liver mass in addition to scattered bilateral pulmonary nodules suggestive of metastatic disease. The patient was placed on IV heparin the patient was admitted to the floor for further evaluation and treatment. I interviewed the patient and she denied being in being respiratory distress. No pleurisy. No cough or sputum production. No chest that is so wheezing. No hemoptysis. There is a questionable history of a DVT years back following a vulvar surgery. The patient is a poor historian. She is unable to recall of the details of her previous breast cancer. She denies however having any metastatic disease at this point. She states that she had a mastectomy and chemotherapy or hormonal therapy was not recommended back then. Not sure if she had a colonoscopy recently. Denies having any melanotic stools. The patient is hemodynamically stable at this point. She is resting comfortably in bed. D-dimer is elevated. No other complaints otherwise for now. Review of Systems All systems: negative (Chronic tremors, impaired hearing, impaired memory an underlying component of dementia, difficulty with mobility, lives in a assisted living. No chest pain. No shortness of breath. No melanotic stools. No abdominal distention. No chronic liver disease. No alcoholism.) Past Medical History Past Medical History: Heart Failure, Hyperlipidemia, Hypertension Additional Past Medical History / Comment(s): Vertigo, breast cancer and a previous right mastectomy, hyperparathyroidism status post parathyroid resection , remote history of a left lower extremity DVT that occurred postoperatively, chronic tremors History of Any Multi-Drug Resistant Organisms: VRE Date of last positivie culture/infection: 08/08/16 MDRO Source:: Urine Past Surgical History: Breast Surgery, Orthopedic Surgery Additional Past Surgical History / Comment(s): skin patch from neck for skin CA on right cheek, rt mastectomy; left hip surgery; parathyroid surgery, radical vulvectomy rt labia last December; daughters state she had a DVT in left leg afterwards. Cataract surgery Past Anesthesia/Blood Transfusion Reactions: No Reported Reaction Past Psychological History: Anxiety, Depression Additional Psychological History / Comment(s): Pt resides at [facility] in an apartment. Her daughters come over daily and give her lunch and shower her. She has an aide in the morning twice a day. She has a 4 wheeled walker to ambulate. Her family takes her to [employer]. Smoking Status: Former smoker - Past Family History Daughter(s) Family Medical History: No Reported History Additional Family Medical History / Comment(s): Patient has 3 daughters with no major medical problems. Son(s) Family Medical History: No Reported History Additional Family Medical History / Comment(s): Patient has one son with no major medical problems. Father Family Medical History: CVA/TIA Additional Family Medical History / Comment(s): Father of a CVA in his mid to late 70's. Mother Family Medical History: No Reported History Additional Family Medical History / Comment(s): Mother was healthy and lived to be 87/88 yrs old. Medications and Allergies Home Medications Medication Instructions Recorded Confirmed Type Cholecalciferol [Vitamin D3] 1,000 unit PO DAILY 09/01/16 12/07/16 History Docusate [Colace] 100 mg PO HS 09/01/16 12/07/16 History Multivitamins, Thera [Multivitamin 1 tab PO DAILY 09/01/16 12/07/16 History (formulary)] Trimethobenzamide HCl [Tigan] 300 mg PO DAILY 10/21/16 12/07/16 History Allergies Allergy/AdvReac Type Severity Reaction Status Date / Time No Known Allergies Allergy Verified 12/07/16 12:27 Physical Exam Vitals: Vital Signs Temp Pulse Pulse Resp BP BP Pulse Ox 12/08/16 08:00 96.9 F L 72 18 118/59 96 12/08/16 04:00 96.5 F L 72 18 105/59 98 12/08/16 00:00 83 18 12/07/16 23:56 96.9 F L 83 18 118/70 96 12/07/16 20:00 98.0 F 100 18 142/85 95 12/07/16 15:44 96.8 F L 85 18 122/72 97 12/07/16 15:27 98.5 F 89 16 132/73 94 L Intake and Output 12/07/16 12/08/16 12/08/16 22:59 06:59 14:59 Intake Total 643.21 1080.143 440 Balance 643.21 1080.143 440 Intake: IV 145 140 heparin 145 140 Amount of Fluid Infused ( 500 ml) Intake, IV Titration 143.21 935.143 300 Amount Heparin Sodium,Porcine/ 143.21 135.143 D5w Pmx 25,000 unit In Dextrose/Water 1 500ml. bag @ 18 UNITS/KG/HR 20. 41 mls/hr IV .Q24H [facility] Rx #:[id number] Sodium Chloride 0.9% 1, 800 300 000 ml @ 100 mls/hr IV . Q10H ONE Rx#:[id number] Other: Voiding Method Diaper Diaper Diaper Incontinent Incontinent Incontinent Weight 58.5 kg 59.5 kg The patient appeared well nourished and normally developed. Vital signs as documented. Head exam is unremarkable. No scleral icterus or corneal arcus noted. Neck is without jugular venous distension, thyromegaly, or carotid bruits. Carotid upstrokes are brisk bilaterally. Lungs are clear to auscultation and percussion. Cardiac exam reveals the PMI to be normally sized and situated. Rhythm is regular. First and second heart sounds normal. No murmurs, rubs or gallops. Abdominal exam reveals normal bowel sounds, no masses , no organomegaly and no aortic enlargement. Extremities are nonedematous and both femoral and pedal pulses are normal. Results - Laboratory Findings CBC and BMP: 12/07/16 11:20 12/07/16 11:20 PT/INR, D-dimer PT 10.7 sec (9.0-12.0) 12/07/16 11:20 INR 1.1 (<1.1) 12/07/16 11:20 D-Dimer 13.13 mg/L FEU (<0.60) H 12/07/16 11:20 Abnormal lab findings: Abnormal Labs 12/07/16 12/07/16 12/07/16 11:20 11:20 11:20 Hgb 16.6 H Hct 48.8 H APTT D-Dimer Chloride 109 H Glucose 109 H Calcium 10.6 H AST 43 H Total Creatine Kinase <20 L Troponin I 0.050 H* 12/07/16 12/07/16 12/08/16 11:20 21:46 04:26 Hgb Hct APTT 85.0 H 82.0 H D-Dimer 13.13 H Chloride Glucose Calcium AST Total Creatine Kinase Troponin I 12/08/16 12:06 Hgb Hct APTT 56.0 H D-Dimer Chloride Glucose Calcium AST Total Creatine Kinase Troponin I - Diagnostic Findings CT scan - chest: image reviewed Assessment and Plan Plan: Assessment 1 metastatic cancer is suspected. The patient has a large 7 cm liver mass in addition to several subcentimeter pulmonary nodules 2 of them on the left and one on the right. Concern for metastatic disease and for that reason an oncology consultation will be obtained and the patient will have the routine tumor markers including alpha-fetoprotein, CEA, CA-19-9 and MRI of the liver with subsequent fine-needle aspirate if the patient is agreeable. 2 pulmonary nodules as mentioned above 3 doubtful pulmonary embolism. In fact CT angios the chest is a very poor contrast and does not characterize any emboli. If this is a concern, may need to repeat the CT angios the later stage 4 chronic tremors 5 remote history of a DVT of the left lower extremity 6 breast cancer with a previous right mastectomy 7 previous parathyroid gland resection for hyperparathyroidism Plan Proceed with tumor markers including CEA, CA-19-9, alpha-fetoprotein an MRI of the liver. Proceed with Doppler of the lower extremities. Consider fine- needle aspirate of a liver of the patient is agreeable. Pulmonary embolism is doubtful, and I would suggest repeating the CT angios the chest with better contact us if the patient develops any respiratory distress in the future. Performance and functional status is poor. Not a good candidate for any oncologic treatment in the future.
[2016-12-08] MEDS: MULTIVITAMINS, THERA 1 EACH TAB PO SCH (13:30)
--- NOTE | 2016-12-08 13:42 | US ---
EXAMINATION TYPE: US venous doppler duplex LE DATE OF EXAM: 12/08/2016 1:08 PM COMPARISON: NONE CLINICAL HISTORY: elevated d dimer. hx of DVT x 1 year ago in left thigh SIDE PERFORMED: Bilateral TECHNIQUE: The lower extremity deep venous system is examined utilizing real time linear array sonog joshua with graded compression, doppler sonography and color-flow sonography. VESSELS IMAGED: External Iliac Vein (EIV) Common Femoral Vein Deep Femoral Vein Greater Saphenous Vein * Femoral Vein Popliteal Vein Small Saphenous Vein * Proximal Calf Veins (* superficial vessels) Right Leg: Appears negative for DVT Left Leg: Appears POSITIVE for DVT from CFV to Proximal calf veins. Compressions deferred due to in ternal echoes. IMPRESSION: 1. Positive DVT left lower extremity. 2. No evidence for DVT right lower extremity.
[2016-12-08] MEDS: HEPARIN SODIUM,PORCINE/D5W PMX 25,000 UNIT in DEXTROSE/WATER 1 500ML.BAG IV SCH (16:12)
[2016-12-08] MEDS: QUEtiapine 25 MG TAB PO SCH (20:06)
[2016-12-08] MEDS: DOCUSATE 100 MG CAP PO SCH (20:06)
[2016-12-09] MEDS: PANTOPRAZOLE 40 MG TABLET PO SCH (06:37)
[2016-12-09] MEDS ORDERED: HEPARIN SODIUM,PORCINE 5,000 UNIT/ML 1 ML VIAL IV PRN ×2 (06:49→06:55)
[2016-12-09] MEDS: ALPRAZolam 0.25 MG TAB PO SCH ×3 (08:06→22:07)
[2016-12-09] MEDS: PRIMIDONE 50 MG TAB PO SCH ×2 (08:06→22:05)
[2016-12-09] MEDS: TRIMETHOBENZAMIDE 300 MG CAP PO SCH (08:06)
[2016-12-09] MEDS: amLODIPine 5 MG TAB PO SCH ×2 (08:06→22:04)
[2016-12-09] MEDS: CARBIDOPA-LEVODOPA 25-100 MG 1 EACH TAB PO SCH ×2 (08:06→22:04)
[2016-12-09] MEDS: CHOLECALCIFEROL 1,000 UNIT TAB PO SCH (08:06)
--- NOTE | 2016-12-09 12:06 | MR ---
EXAMINATION TYPE: MR liver wo/w con DATE OF EXAM: 12/09/2016 COMPARISON: CT chest 12/07/2016 HISTORY: 86-year-old female with abnormal CT of chest, history of prior breast cancer. Technique: Multiplanar, multisequence images of the abdomen were obtained before and after administra tion of 12 mL intravenous MultiHance gadolinium contrast. FINDINGS: The heart is upper limits of normal in size. The patient is status post right mastectomy. There are innumerable solid lesions throughout the liver, most confluent along the anterior right hep atic lobe measuring up to 8.6 cm craniocaudal and 6.9 cm wide. These are mildly T2 hyperintense, T1 h ypointense, and show arterial phase enhancement. There is THID lesion along the mid liver that does n ot persist on later postcontrast phases. Tiny low signal foci within the gallbladder fundus could represent tiny retained calculi or an area o f fundal adenomyomatosis. No abnormal gallbladder distention. No biliary ductal dilatation. The portal venous system is patent. Tiny 5 mm nonspecific cyst at the pancreatic tail. Otherwise, pancreas, spleen, and adrenal glands wi thin normal limits. Bilateral renal cortical cysts measuring up to 1.6 cm. Symmetric uptake and excretion of contrast fro m the kidneys. Trace perihepatic fluid on axial T2. No significant abdominal ascites. No upper abdominal lymphadenop athy seen. Ectatic lower descending thoracic aorta at 2.6 cm and tortuous abdominal aorta. Incidental circumaort ic left renal vein. Diffuse colonic diverticulosis. There is a levoconvex scoliosis of the lumbar spine. Metal hardware artifact from patient's left hip arthroplasty on the coronal view. IMPRESSION: 1. Innumerable solid enhancing lesions within the liver measuring up to 8.6 cm concerning for metasta tic disease. Given arterial phase enhancement, metastatic breast cancer is within the differential. 2. Diffuse colonic diverticulosis.
--- NOTE | 2016-12-09 12:09 | P.PN ---
Subjective This is an 86-year-old female with a previous medical history significant for hypertension and hypertensive cardio vascular disease, hyperlipidemia, Alzheimer dementia, recurrent UTI, breast cancer status post right mastectomy, DVT of the left leg. Patient was brought into [facility] emergency center regarding tremor. D-dimer was 13.13, troponin was 0.050. Urinalysis was clear with nitrate and leukoesterase negative. CTA of the chest was nondiagnostic for pulmonary embolism. Extravasation of contrast was evident. Multiple bilateral pulmonary nodules greater in the upper lung field suspicious for metastatic disease. Large right hepatic mass. Patient was admitted to the selective care unit and has been seen in consultation by Dr. Ramos regarding tremors for 6 months mostly in her hand most likely secondary to parkinsonism and suggest trial of Sinemet. EEG was ordered and pending. Consult in place for Dr. Rose regarding possible PE and also oncology for liver mass. Patient is complaining of her right arm being sore and it bothers her when she tries to eat. She states she thinks it' s not from an injury but from old age. Patient did require straight cath to obtain urinalysis last evening. Patient does state that she lives alone at [facility] and uses a walker for ambulation. 12/09: Ultrasound of the left lower extremity is positive for DVT from the CFV to the proximal calf veins. No DVT in the right lower extremity. We will ask for clarification whether this is an old or new DVT. Heparin drip changed to subcu Lovenox. Patient was evaluated by Dr. Lorenzo he has ordered an MRI of the liver, alpha-fetoprotein and CA 19-9 are all pending. CEA is 3.5 Patient was evaluated by Dr. Rose with consideration for fine-needle aspiration of the liver if patient is agreeable. Pulmonary embolism is doubtful and suggest repeating the CT angiogram of the chest if the patient develops any respiratory distress in the future. Ultrasound of the breast remains pending. Patient's family does not want any aggressive treatment done at this point. We are waiting for MRI and ultrasound. Patient will be transferred to the [facility] floor. Objective - Vital Signs Vital signs: Vital Signs Temp 97.8 F 12/09/16 08:00 Pulse 95 12/09/16 08:00 Resp 16 12/09/16 08:00 BP 121/71 12/09/16 08:00 Pulse Ox 94 L 12/09/16 08:12 Intake & Output 12/08/16 12/09/16 12/09/16 18:59 06:59 18:59 Intake Total 704.255 772.496 Output Total 400 Balance 304.255 772.496 Weight 57 kg Intake: IV 140 540 0.9 300 heparin 140 240 Intake, IV Titration 464.255 232.496 Amount Heparin Sodium,Porcine/ 164.255 232.496 D5w Pmx 25,000 unit In Dextrose/Water 1 500ml. bag @ 18 UNITS/KG/HR 20. 41 mls/hr IV .Q24H [facility] Rx #:[id number] Sodium Chloride 0.9% 1, 300 000 ml @ 100 mls/hr IV . Q10H ONE Rx#:[id number] Oral 100 Output: Urine 400 Other: Voiding Method Diaper Diaper Incontinent Incontinent # Voids 2 # Bowel Movements 1 - Exam General appearance: no acute distress, thin - EENT Eyes: anicteric sclerae, EOMI, PERRLA, no ptosis, no scleral icterus, normal appearance ENT: hard of hearing, NA/AT, normal oropharynx, no thrush Ears: bilateral: normal - Neck Neck: no lymphadenopathy, normal ROM, no rigidity, no stridor, no thyromegaly Carotids: bilateral: upstroke delayed Thyroid: negative: normal size - Respiratory Respiratory: bilateral: diminished, negative: dullness, rales, rhonchi, wheezing , prolonged expiration, prolonged inspiration - Cardiovascular Rhythm: regular Heart sounds: normal: S1, S2 Abnormal Heart Sounds: systolic murmur, no rub, no S3 Gallop, no S4 Gallop, no click - Gastrointestinal General gastrointestinal: normal bowel sounds, soft, no splenomegaly, no tenderness, no umbilical hernia, no ventral hernia - Integumentary Integumentary: normal, normal turgor - Neurologic Neurologic: CNII-XII intact - Musculoskeletal Musculoskeletal: generalized weakness, strength equal bilaterally - Psychiatric Psychiatric: Oriented to person no A&O x's 3, no appropriate affect, no intact judgment & insight - Labs CBC & Chem 7: 12/07/16 11:20 12/07/16 11:20 Labs: Abnormal Lab Results - Last 24 Hours (Table) 12/08/16 12/09/16 Range/Units 12:06 06:09 APTT 56.0 H 31.1 H (22.0-30.0) sec Assessment and Plan Plan: 1. Right arm pain and tremor for which patient has had multiple ER visits. Consult with Dr. Ramos. 2. Elevated d-dimer with CTA of the chest inconclusive for PE. Lovenox. Pulmonary consult with Dr. Rose. 2. Right hepatic mass and pulmonary nodules suspicious for metastatic disease. Oncology consult appreciated. CEA, CA 19-9 and alpha-fetoprotein ordered.MRI ordered 3. Hand tremor evaluated by Dr. Ramos with concern for parkinsonism. Sinemet one twice daily started. It appears patient has been on primidone 50 mg twice daily for essential tremor 4. Alzheimer dementia that appears to be moderate to severe. Patient may need to be started on Exelon patch. Currently on Seroquel. 5. Hypertension and hypertensive cardiovascular disease. Continue amlodipine 5 mg orally twice every day. 6. Vitamin D deficiency. Continue vitamin D supplement. 7. History of breast cancer post right mastectomy. Patient has mass in the left breast area. Ultrasound of the breast ordered. 8. History of hyperparathyroidism. Post parathyroidectomy. 8. DVT of the left lower extremity with history of the same. Radiology to clarify whether this is thought to be an old or new DVT. Heparin changed to Lovenox subcu. 9. GI prophylaxis. Continue Protonix 40 mg orally once every day. 10. CODE STATUS: No code Discharge plan: To be determined Impression and plan of care have been directed as dictated by the signing physician. Nicolette Chirinos nurse practitioner acting as scribe for signing physician.
--- NOTE | 2016-12-09 13:23 | P.PN ---
Subjective Principal diagnosis: Metastatic cancer and bilateral pulmonary nodules 86-year-old female patient, quite debilitated, lives in an assisted living, with a remote history of breast cancer and a previous right mastectomy, was also known to have chronic tremors with been in and out of the hospital multiple occasions because of poorly controlled tremors. Yesterday she came into the emergency department for the same. She was seen by Dr. Ayad Marshall. No mention of any shortness of breath. A CT angios the chest was done and the bolus itself was suboptimal and no comments can be made as far as filling defects or pulmonary embolism. Nevertheless, the CAT scan showed a large 7 cm liver mass in addition to scattered bilateral pulmonary nodules suggestive of metastatic disease. The patient was placed on IV heparin the patient was admitted to the floor for further evaluation and treatment. I interviewed the patient and she denied being in being respiratory distress. No pleurisy. No cough or sputum production. No chest that is so wheezing. No hemoptysis. There is a questionable history of a DVT years back following a vulvar surgery. The patient is a poor historian. She is unable to recall of the details of her previous breast cancer. She denies however having any metastatic disease at this point. She states that she had a mastectomy and chemotherapy or hormonal therapy was not recommended back then. Not sure if she had a colonoscopy recently. Denies having any melanotic stools. The patient is hemodynamically stable at this point. She is resting comfortably in bed. D-dimer is elevated. No other complaints otherwise for now. Patient was seen today on 12/09/2016, and I reviewed the CT of the chest with the patient and her family at bedside. Pulmonary-latham, the patient seems to be doing relatively well, she does have history of smoking and possibly some component of underlying COPD, but the main issue on this admission seems to be an issue related to possible metastatic disease, primary at this point is not clear, but does not seem to be pulmonary in nature. Patient denies any shortness of breath, no cough, no wheezing, no chest pain. Objective - Vital Signs Vital signs: Vital Signs Temp 97.8 F 12/09/16 08:00 Pulse 95 12/09/16 08:00 Resp 16 12/09/16 08:00 BP 121/71 12/09/16 08:00 Pulse Ox 94 L 12/09/16 08:12 Intake & Output 12/08/16 12/09/16 12/09/16 18:59 06:59 18:59 Intake Total 704.255 772.496 Output Total 400 Balance 304.255 772.496 Weight 57 kg Intake: IV 140 540 0.9 300 heparin 140 240 Intake, IV Titration 464.255 232.496 Amount Heparin Sodium,Porcine/ 164.255 232.496 D5w Pmx 25,000 unit In Dextrose/Water 1 500ml. bag @ 18 UNITS/KG/HR 20. 41 mls/hr IV .Q24H [facility] Rx #:[id number] Sodium Chloride 0.9% 1, 300 000 ml @ 100 mls/hr IV . Q10H ONE Rx#:[id number] Oral 100 Output: Urine 400 Other: Voiding Method Diaper Diaper Incontinent Incontinent # Voids 2 1 # Bowel Movements 1 - Exam Physical Exam HEENT:[Neck is supple.] [No neck masses.] [No thyromegaly.] [No JVD.] Chest: [Clear throughout, no crackles, no rhonchi, no wheezes.] Cardiac Exam: [Normal S1 and S2, no S3 gallop, no murmur.] Abdomen: [Soft, nontender, no megaly, no rebound, no guarding, normal bowel sounds.] Extremities: [No clubbing, no edema, no cyanosis.] Neurological Exam: [No focal neurologic deficit.] - Labs CBC & Chem 7: 12/07/16 11:20 12/07/16 11:20 Labs: Abnormal Lab Results - Last 24 Hours (Table) 12/09/16 Range/Units 06:09 APTT 31.1 H (22.0-30.0) sec Assessment and Plan Plan: 1 metastatic cancer is suspected. The patient has a large 7 cm liver mass in addition to several subcentimeter pulmonary nodules 2 of them on the left and one on the right. Concern for metastatic disease and for that reason an oncology consultation will be obtained and the patient will have the routine tumor markers including alpha-fetoprotein, CEA, CA-19-9 and MRI of the liver with subsequent fine-needle aspirate if the patient is agreeable. 2 pulmonary nodules as mentioned above 3 doubtful pulmonary embolism. In fact CT angios the chest is a very poor contrast and does not characterize any emboli. If this is a concern, may need to repeat the CT angios the later stage 4 chronic tremors 5 remote history of a DVT of the left lower extremity 6 breast cancer with a previous right mastectomy 7 previous parathyroid gland resection for hyperparathyroidism Recommendation: Continue present treatment plan, as per oncology on the case, I believe the patient will eventually require ultrasound-guided biopsy of the liver mass, and further treatment plan will be addressed accordingly. Overall prognosis seems to be very poor and guarded. We'll continue to follow. Time with Patient: Less than 30
[2016-12-09] MEDS: ENOXAPARIN 60 MG/0.6 ML SYRINGE SQ SCH ×2 (14:43→22:04)
[2016-12-09] MEDS: MULTIVITAMINS, THERA 1 EACH TAB PO SCH (14:43)
--- NOTE | 2016-12-09 16:44 | P.PN ---
Subjective This patient is a 86-year-old right-handed white female who was seen in neurology consultation yesterday for tremors. Her neurological exam findings yesterday suggested mild parkinsonism. She was started on low-dose Sinemet as a trial to see if this may help with her underlying symptoms of tremor. She has been symptomatic for the past 6 months. On admission she was also found to have evidence of a 7 cm hypodensity in the right lobe of the liver. She has been seen by oncology who ordered an MRI of the liver. She does have history of breast cancer on the right side and was treated with a mastectomy. We will await further recommendations from oncology regarding further evaluation. The patient was started on Sinemet yesterday. She is already noted some improvement with the tremors today according to the patient. She is not a very reliable sources she does have history of underlying moderate dementia. At this time we will continue her on Sinemet for at least the next few days to see how the response for the tremors may be. She may require further adjustment of the dose depending on her response. At present the current dose of Sinemet seems to be helping. She is not experiencing as much tremors that she initially did prior to starting on this medication. The patient has been started on Exelon patch for treatment of her Alzheimer's dementia. We did agree with this and we will continue close follow-up. Overall the patient seems to be resting comfortably. She is to be evaluated for possibility of pulmonary embolus by pulmonary medicine as well. Patient did undergo a MRI of the liver today. The MRI report indicates numerous enhancing lesions in the liver suggesting metastatic disease. Differential diagnosis would be metastatic breast cancer. Patient will need to follow-up with oncology in terms of further evaluation and treatment. We will continue close monitoring of her parkinsonism. Would suggest at least another few days of current dose of Sinemet before we make any adjustments for her. We'll await further recommendations from oncology regarding the results of the MRI of the liver. Her overall prognosis at this time remains very guarded. Objective - Vital Signs Vital signs: Vital Signs Temp 97.8 F 12/09/16 08:00 Pulse 95 12/09/16 08:00 Resp 16 12/09/16 08:00 BP 121/71 12/09/16 08:00 Pulse Ox 94 L 12/09/16 08:12 Intake & Output 0712/09/16 12/09/16 18:59 06:59 18:59 Intake Total 704.255 772.496 Output Total 400 Balance 304.255 772.496 Weight 57 kg Intake: IV 140 540 0.9 300 heparin 140 240 Intake, IV Titration 464.255 232.496 Amount Heparin Sodium,Porcine/ 164.255 232.496 D5w Pmx 25,000 unit In Dextrose/Water 1 500ml. bag @ 18 UNITS/KG/HR 20. 41 mls/hr IV .Q24H SYEDA Rx #:[id number] Sodium Chloride 0.9% 1, 300 000 ml @ 100 mls/hr IV . Q10H ONE Rx#:[id number] Oral 100 Output: Urine 400 Other: Voiding Method Diaper Diaper Incontinent Incontinent # Voids 2 1 # Bowel Movements 1 - Exam Physical examination: PHYSICAL EXAMINATION: Patient is resting comfortably in bed. VITAL SIGNS: Blood pressure is [130/84]. Heart rate is [98]. Respiration is [16] . Temperature is [97.0]. HEENT: Head is atraumatic, neck is supple, there were no carotid bruits. CHEST: Lungs are clear to auscultation and percussion. CARDIAC: S1, S2 normal rate and rhythm. There is no murmur. ABDOMEN: Soft and nontender. Bowel sounds are present. EXTREMITIES: There is no pedal edema. Peripheral pulses are present. Neurological examination: Patient's neurological examination is unchanged from yesterday. She does not appear to have rest tremor on exam this morning. She is slightly confused today. She does follow simple commands. She does not have any evidence of rest tremor. - Labs CBC & Chem 7: 12/07/16 11:20 12/07/16 11:20 Labs: Abnormal Lab Results - Last 24 Hours (Table) 12/09/16 Range/Units 06:09 APTT 31.1 H (22.0-30.0) sec Assessment and Plan (1) Parkinsonism Status: Acute Code(s): G20 - PARKINSON'S DISEASE (2) Dementia Status: Acute Code(s): F03.90 - UNSPECIFIED DEMENTIA WITHOUT BEHAVIORAL DISTURBANCE (3) Liver mass Status: Acute Code(s): R16.0 - HEPATOMEGALY, NOT ELSEWHERE CLASSIFIED (4) Failure to thrive Status: Acute Code(s): AFI4956 - Plan: This patient was seen in neurology consultation yesterday for evaluation of tremors. She had findings suggesting mild parkinsonism. She has been started on low-dose Sinemet. We will continue to monitor her progress on this dosage with adjustment as needed. Patient clinically states she is feeling better with less tremors today. She seems to have less tremors noticeable on examination today. She has less cogwheel rigidity in the upper extremities. She is being evaluated by oncology for right lobe liver mass. MRI of the liver has been completed today. Results of the MRI indicated multiple metastatic lesions to the liver. We are waiting further recommendations from oncology for further treatment and management. We will continue close neurological follow- up of this patient during this admission. She has a history of underlying dementia and has been started on Exelon patch. Her overall prognosis at this time remains very guarded.
--- NOTE | 2016-12-09 17:23 | P.PCN ---
Date of Procedure: 12/09/16 Preoperative Diagnosis: Patient with history of parkinsonism and dementia. She is examined in room 404 bed 1 on 12/09/2016 Postoperative Diagnosis: Procedure(s) Performed: Routine EEG Implants: Indications for Procedure: This patient is a 86-year-old female being evaluated for tremors and parkinsonism. Patient has history of underlying dementia. Operative Findings: Description of Procedure: A routine 21 channel awake digital EEG recording was accomplished utilizing the 10-20 international system with bipolar and referential montages. The background activity in the most alert resting state consists of a low to medium amplitude poorly developed and poorly sustained 45 hertz activity over the posterior head regions. This posterior rhythm attenuates minimally to eye opening. There is a small amount of low amplitude 1820 hertz beta activity seen maximally over the anterior head regions. Muscle and movement artifact was observed on several occasions during the tracing. Hyperventilation was not performed. Photic stimulation at flash or Micha's of 230 hertz produced a minimal occipital driving response. No epileptiform discharges were seen. Impression: This EEG gives evidence of a severe widespread diffuse disturbance in cerebral function. The EEG failed to reveal any focal, lateralized, or epileptiform abnormalities. If clinically indicated a follow-up EEG is recommended. Clinical correlation is recommended. Yemi Ramos M.D.
[2016-12-09] MEDS: DOCUSATE 100 MG CAP PO SCH (22:04)
[2016-12-09] MEDS: QUEtiapine 25 MG TAB PO SCH (22:05)
[2016-12-10 08:06] LABS: ALT 19 U/L (9-52); AST 34 U/L (14-36); Alkaline Phosphatase 83 U/L (38-126); Anion Gap 7 mmol/L; Blood Urea Nitrogen 12 mg/dL (7-17); Calcium 9.1 mg/dL (8.4-10.2); Carbon Dioxide 24 mmol/L (22-30); Chloride 107 mmol/L (98-107); Glucose 132 mg/dL (74-99); Non-African American GFR(MDRD) >60 (>60 ml/min/1.73 sqM); Potassium 3.7 mmol/L (3.5-5.1); Sodium 138 mmol/L (137-145); Total Bilirubin 0.8 mg/dL (0.2-1.3)
[2016-12-10 08:53] LABS: HCT 39.6 % (34.0-46.0); HGB 13.6 gm/dL (11.4-16.0); MCH 34.4 pg (25.0-35.0); RBC 3.96 m/uL (3.80-5.40); WBC 6.4 k/uL (3.8-10.6)
[2016-12-10 08:55] LABS: CH 32.5; CHCM 32.6; HDW 2.23; MCHC 34.4 g/dL (31.0-37.0); RDW 13.3 % (11.5-15.5)
[2016-12-10] MEDS: ENOXAPARIN 60 MG/0.6 ML SYRINGE SQ SCH ×2 (09:44→20:44)
[2016-12-10] MEDS: ALPRAZolam 0.25 MG TAB PO SCH (09:44)
[2016-12-10] MEDS: CARBIDOPA-LEVODOPA 25-100 MG 1 EACH TAB PO SCH ×2 (09:44→20:43)
[2016-12-10] MEDS: PANTOPRAZOLE 40 MG TABLET PO SCH (09:45)
[2016-12-10] MEDS: PRIMIDONE 50 MG TAB PO SCH ×2 (09:45→20:44)
[2016-12-10] MEDS: amLODIPine 5 MG TAB PO SCH ×2 (09:45→20:43)
[2016-12-10] MEDS: CHOLECALCIFEROL 1,000 UNIT TAB PO SCH (09:45)
[2016-12-10] MEDS: TRIMETHOBENZAMIDE 300 MG CAP PO SCH (09:45)
[2016-12-10] MEDS ORDERED: ACETAMINOPHEN TAB 325 MG TAB PO PRN (09:55)
[2016-12-10] MEDS ORDERED: ALPRAZolam 0.25 MG TAB PO PRN (09:55)
--- NOTE | 2016-12-10 11:01 | P.PN ---
Subjective Principal diagnosis: Metastatic cancer and bilateral pulmonary nodules 86-year-old female patient, quite debilitated, lives in an assisted living, with a remote history of breast cancer and a previous right mastectomy, was also known to have chronic tremors with been in and out of the hospital multiple occasions because of poorly controlled tremors. Yesterday she came into the emergency department for the same. She was seen by Dr. Ayad Marshall. No mention of any shortness of breath. A CT angios the chest was done and the bolus itself was suboptimal and no comments can be made as far as filling defects or pulmonary embolism. Nevertheless, the CAT scan showed a large 7 cm liver mass in addition to scattered bilateral pulmonary nodules suggestive of metastatic disease. The patient was placed on IV heparin the patient was admitted to the floor for further evaluation and treatment. I interviewed the patient and she denied being in being respiratory distress. No pleurisy. No cough or sputum production. No chest that is so wheezing. No hemoptysis. There is a questionable history of a DVT years back following a vulvar surgery. The patient is a poor historian. She is unable to recall of the details of her previous breast cancer. She denies however having any metastatic disease at this point. She states that she had a mastectomy and chemotherapy or hormonal therapy was not recommended back then. Not sure if she had a colonoscopy recently. Denies having any melanotic stools. The patient is hemodynamically stable at this point. She is resting comfortably in bed. D-dimer is elevated. No other complaints otherwise for now. Patient was seen today on 12/09/2016, and I reviewed the CT of the chest with the patient and her family at bedside. Pulmonary-latham, the patient seems to be doing relatively well, she does have history of smoking and possibly some component of underlying COPD, but the main issue on this admission seems to be an issue related to possible metastatic disease, primary at this point is not clear, but does not seem to be pulmonary in nature. Patient denies any shortness of breath, no cough, no wheezing, no chest pain. The patient was seen again today 12/10/2016 in follow-up on the regular medical floor. She is currently resting quite comfortably in bed. She did have Xanax ordered around the clock which was held this morning she does remain somewhat sedate. She does deny any worsening shortness of breath, cough or congestion. She is maintaining O2 saturations in the mid 90s on 2 L/m per nasal cannula. She is afebrile. Hemodynamically stable. Oncology is in the case regarding suspected recurrent breast cancer with metastasis to the liver. Objective - Vital Signs Vital signs: Vital Signs Temp 98.5 F 12/10/16 07:00 Pulse 100 12/10/16 07:00 Resp 16 12/10/16 07:00 BP 138/78 12/10/16 07:00 Pulse Ox 94 L 12/10/16 07:00 Intake & Output 12/09/16 12/10/16 12/10/16 18:59 06:59 18:59 Intake Total 250 Balance 250 Intake: Oral 250 Other: Voiding Method Diaper Incontinent # Voids 1 3 - Exam GENERAL EXAM: Frail, cachectic. Comfortable in no apparent distress. HEAD: Normocephalic. EYES: Normal reaction of pupils, equal size. NOSE: Clear with pink turbinates. THROAT: No erythema or exudates. NECK: No masses, no JVD. CHEST: No chest wall deformity. LUNGS: Equal air entry with no crackles, wheeze, rhonchi or dullness. CVS: S1 and S2 normal with no audible murmurs, regular rhythm. ABDOMEN: Normal bowel sounds, no guarding or rigidity. Extremities: There is no significant peripheral edema. No clubbing, no cyanosis. Peripheral pulses are intact. - Labs CBC & Chem 7: 12/10/16 07:14 12/10/16 07:14 Labs: Abnormal Lab Results - Last 24 Hours (Table) 12/10/16 Range/Units 07:14 Glucose 132 H (74-99) mg/dL Total Protein 6.0 L (6.3-8.2) g/dL Albumin 3.1 L (3.5-5.0) g/dL Assessment and Plan Plan: 1 metastatic cancer is suspected. The patient has a large 7 cm liver mass in addition to several subcentimeter pulmonary nodules 2 of them on the left and one on the right. MRI of the liver revealed innumerable solid enhancing lesions within the liver measuring up to 8.6 cm with concern for metastatic disease. Metastatic breast cancer is within the differential. Subsequent fine- needle aspirate if the patient is agreeable. 2 pulmonary nodules as mentioned above 3 doubtful pulmonary embolism. In fact CT angios the chest is a very poor contrast and does not characterize any emboli. If this is a concern, may need to repeat the CT angios the later stage 4 chronic tremors 5 remote history of a DVT of the left lower extremity 6 breast cancer with a previous right mastectomy 7 previous parathyroid gland resection for hyperparathyroidism Plan: The patient was seen and evaluated by Dr. Shaffer. He did have a lengthy discussion with the family members yesterday. They are also speaking with oncology in regards to the plan. She would most likely require a ultrasound guided liver biopsy for definitive diagnosis. Her overall prognosis is quite guarded however and she may benefit from hospice. In the interim, we'll continue with her medical conditions. We'll continue to follow.
--- NOTE | 2016-12-10 11:24 | P.PN ---
Subjective This is an 86-year-old female with a previous medical history significant for hypertension and hypertensive cardio vascular disease, hyperlipidemia, Alzheimer dementia, recurrent UTI, breast cancer status post right mastectomy, DVT of the left leg. Patient was brought into [facility] emergency center regarding tremor. D-dimer was 13.13, troponin was 0.050. Urinalysis was clear with nitrate and leukoesterase negative. CTA of the chest was nondiagnostic for pulmonary embolism. Extravasation of contrast was evident. Multiple bilateral pulmonary nodules greater in the upper lung field suspicious for metastatic disease. Large right hepatic mass. Patient was admitted to the selective care unit and has been seen in consultation by Dr. Ramos regarding tremors for 6 months mostly in her hand most likely secondary to parkinsonism and suggest trial of Sinemet. EEG was ordered and pending. Consult in place for Dr. Rose regarding possible PE and also oncology for liver mass. Patient is complaining of her right arm being sore and it bothers her when she tries to eat. She states she thinks it' s not from an injury but from old age. Patient did require straight cath to obtain urinalysis last evening. Patient does state that she lives alone at [facility] and uses a walker for ambulation. 12/09: Ultrasound of the left lower extremity is positive for DVT from the CFV to the proximal calf veins. No DVT in the right lower extremity. We will ask for clarification whether this is an old or new DVT. Heparin drip changed to subcu Lovenox. Patient was evaluated by Dr. Lorenzo he has ordered an MRI of the liver, alpha-fetoprotein and CA 19-9 are all pending. CEA is 3.5 Patient was evaluated by Dr. Rose with consideration for fine-needle aspiration of the liver if patient is agreeable. Pulmonary embolism is doubtful and suggest repeating the CT angiogram of the chest if the patient develops any respiratory distress in the future. Ultrasound of the breast remains pending. Patient's family does not want any aggressive treatment done at this point. We are waiting for MRI and ultrasound. Patient will be transferred to the [facility] floor. 12/10: MRI of the liver shows innumerable solid enhancing lesions within the liver measuring up to 8.6 cm concerning for metastatic disease. Metastatic breast cancer is within the differential. Diffuse colonic diverticulosis. Patient has been started on Exelon patch. EEG showed severe widespread diffuse disturbance in cerebral function. It failed to reveal any focal lateralized or epileptiform abnormalities. Discussed results with patient's power of attorney at law her daughter Muna. Plan will be for her to be discharged tomorrow and they may pursue hospice as an outpatient when the follow-up with Dr. Malone. Breast ultrasound report is pending. Objective - Vital Signs Vital signs: Vital Signs Temp 98.5 F 12/10/16 07:00 Pulse 100 12/10/16 07:00 Resp 16 12/10/16 07:00 BP 138/78 12/10/16 07:00 Pulse Ox 94 L 12/10/16 07:00 Intake & Output 12/09/16 12/10/16 12/10/16 18:59 06:59 18:59 Intake Total 250 Balance 250 Intake: Oral 250 Other: Voiding Method Diaper Incontinent # Voids 1 3 - Exam General appearance: no acute distress, thin - EENT Eyes: anicteric sclerae, EOMI, PERRLA, no ptosis, no scleral icterus, normal appearance ENT: hard of hearing, NA/AT, normal oropharynx, no thrush Ears: bilateral: normal - Neck Neck: no lymphadenopathy, normal ROM, no rigidity, no stridor, no thyromegaly Carotids: bilateral: upstroke delayed Thyroid: negative: normal size - Respiratory Respiratory: bilateral: diminished, negative: dullness, rales, rhonchi, wheezing , prolonged expiration, prolonged inspiration - Cardiovascular Rhythm: regular Heart sounds: normal: S1, S2 Abnormal Heart Sounds: systolic murmur, no rub, no S3 Gallop, no S4 Gallop, no click - Gastrointestinal General gastrointestinal: normal bowel sounds, soft, no splenomegaly, no tenderness, no umbilical hernia, no ventral hernia - Integumentary Integumentary: normal, normal turgor - Neurologic Neurologic: CNII-XII intact - Musculoskeletal Musculoskeletal: generalized weakness, strength equal bilaterally - Psychiatric Psychiatric: Oriented to person no A&O x's 3, no appropriate affect, no intact judgment & insight - Labs CBC & Chem 7: 12/10/16 07:14 12/10/16 07:14 Labs: Abnormal Lab Results - Last 24 Hours (Table) 12/10/16 Range/Units 07:14 Glucose 132 H (74-99) mg/dL Total Protein 6.0 L (6.3-8.2) g/dL Albumin 3.1 L (3.5-5.0) g/dL Assessment and Plan Plan: 1. Right arm pain and tremor for which patient has had multiple ER visits. Consult with Dr. Ramos. 2. Elevated d-dimer with CTA of the chest inconclusive for PE. Lovenox. Pulmonary consult with Dr. Rose. 2. Right hepatic mass and pulmonary nodules suspicious for metastatic disease from breast cancer. Oncology consult appreciated. CEA, CA 19-9 and alpha- fetoprotein ordered.MRI ordered 3. Hand tremor evaluated by Dr. Ramos with concern for parkinsonism. Sinemet one twice daily started. It appears patient has been on primidone 50 mg twice daily for essential tremor 4. Alzheimer dementia that appears to be moderate to severe. Patient may need to be started on Exelon patch. Currently on Seroquel. 5. Hypertension and hypertensive cardiovascular disease. Continue amlodipine 5 mg orally twice every day. 6. Vitamin D deficiency. Continue vitamin D supplement. 7. History of breast cancer post right mastectomy. Patient has mass in the left breast area. Ultrasound of the breast ordered. 8. History of hyperparathyroidism. Post parathyroidectomy. 8. DVT of the left lower extremity with history of the same. Radiology to clarify whether this is thought to be an old or new DVT. Heparin changed to Lovenox subcu. 9. GI prophylaxis. Continue Protonix 40 mg orally once every day. 10. CODE STATUS: No code Discharge plan: [place] with homecare tomorrow Impression and plan of care have been directed as dictated by the signing physician. Nicolette Chirinos nurse practitioner acting as scribe for signing physician.
--- NOTE | 2016-12-10 11:47 | P.PN ---
Subjective The patient was weaker and more drowsy today. She was however arousable for brief intervals. Objective - Vital Signs Vital signs: Vital Signs Temp 98.5 F 12/10/16 07:00 Pulse 100 12/10/16 07:00 Resp 16 12/10/16 07:00 BP 138/78 12/10/16 07:00 Pulse Ox 94 L 12/10/16 07:00 Intake & Output 12/09/16 12/10/16 12/10/16 18:59 06:59 18:59 Intake Total 250 Balance 250 Intake: Oral 250 Other: Voiding Method Diaper Diaper Incontinent Incontinent # Voids 1 3 - Constitutional General appearance: Present: no acute distress - EENT Eyes: Present: PERRLA ENT: Present: hearing grossly normal, normal oropharynx - Respiratory Respiratory: bilateral: CTA - Cardiovascular Rhythm: regular Heart sounds: normal: S1, S2 - Gastrointestinal General gastrointestinal: Present: hepatomegaly, soft - Neurologic Neurologic: Present: CNII-XII intact - Musculoskeletal Musculoskeletal: Present: generalized weakness, strength equal bilaterally - Labs CBC & Chem 7: 12/10/16 07:14 12/10/16 07:14 Labs: Abnormal Lab Results - Last 24 Hours (Table) 12/10/16 Range/Units 07:14 Glucose 132 H (74-99) mg/dL Total Protein 6.0 L (6.3-8.2) g/dL Albumin 3.1 L (3.5-5.0) g/dL Assessment and Plan (1) Liver mass Narrative/Plan: MRI of the liver was completed, and the reviewed. It involves the presence of multiple solid lesions involving both lobes of the liver. I'll is suspicious for metastatic malignancy. GI tumor markers were negative. The patient has a remote history of breast cancer, as well as a more recent history of locally advanced melanoma. Clinically, metastasis from melanoma would be more likely though related labs from breast cancer cannot be ruled out. In any case, the patient would ideally need a biopsy for further evaluation. However, she was quite definitive that she did not want a biopsy or anything else done. I discussed the case with her daughter, who is the power of disability attorney. I did inform her, that if the patient had hormone receptor positive breast cancer, she could potentially be treatable. Given her age and performance status, she would likely not be a candidate for more aggressive treatment as would be required for other metastatic malignancies. Her daughter confirmed a, that she would expect her mother's wishes to not have a biopsy and not seek active treatment. He requested hospice evaluation, which appears to be quite appropriate in this situation. Given the heavy involvement of the liver, prognosis in my opinion, as likely to be limited. Case was discussed with the pulmonary service. Status: Acute (2) Tremors of nervous system Status: Acute
[2016-12-10] MEDS: IBUPROFEN 600 MG TAB PO PRN (14:36)
[2016-12-10] MEDS: MULTIVITAMINS, THERA 1 EACH TAB PO SCH (14:36)
--- NOTE | 2016-12-10 17:50 | P.PN ---
Subjective This patient is a 86-year-old right-handed white female who was seen in neurology consultation yesterday for tremors. Her neurological exam findings yesterday suggested mild parkinsonism. She was started on low-dose Sinemet as a trial to see if this may help with her underlying symptoms of tremor. She has been symptomatic for the past 6 months. On admission she was also found to have evidence of a 7 cm hypodensity in the right lobe of the liver. She has been seen by oncology who ordered an MRI of the liver. She does have history of breast cancer on the right side and was treated with a mastectomy. We will await further recommendations from oncology regarding further evaluation. The patient was started on Sinemet yesterday. She is already noted some improvement with the tremors today according to the patient. She is not a very reliable sources she does have history of underlying moderate dementia. At this time we will continue her on Sinemet for at least the next few days to see how the response for the tremors may be. She may require further adjustment of the dose depending on her response. At present the current dose of Sinemet seems to be helping. She is not experiencing as much tremors that she initially did prior to starting on this medication. The patient has been started on Exelon patch for treatment of her Alzheimer's dementia. We did agree with this and we will continue close follow-up. Overall the patient seems to be resting comfortably. She is to be evaluated for possibility of pulmonary embolus by pulmonary medicine as well. Patient did undergo a MRI of the liver today. The MRI report indicates numerous enhancing lesions in the liver suggesting metastatic disease. Differential diagnosis would be metastatic breast cancer. Patient will need to follow-up with oncology in terms of further evaluation and treatment. We will continue close monitoring of her parkinsonism. She may continue on her current dose of Sinemet at this time. Would suggest at least another few days of current dose of Sinemet before we make any adjustments for her. We will await further recommendations from oncology regarding the results of the MRI of the liver. Apparently the daughter who is her power of assistant hall director has decided on hospice care for the patient. She will likely be discharged home on hospice care tomorrow. Her overall prognosis at this time remains very guarded. Objective - Vital Signs Vital signs: Vital Signs Temp 100.8 F H 12/10/16 14:56 Pulse 109 H 12/10/16 14:56 Resp 16 12/10/16 14:56 BP 117/68 12/10/16 14:56 Pulse Ox 95 12/10/16 14:56 Intake & Output 12/09/16 12/10/16 12/10/16 18:59 06:59 18:59 Intake Total 250 250 Balance 250 250 Intake: Oral 250 250 Other: Voiding Method Diaper Diaper Incontinent Incontinent # Voids 1 3 2 - Exam Physical examination: PHYSICAL EXAMINATION: Patient is resting comfortably in bed. VITAL SIGNS: Blood pressure is [117/68]. Heart rate is [109]. Respiration is [16 ]. Temperature is [100.8]. HEENT: Head is atraumatic, neck is supple, there were no carotid bruits. CHEST: Lungs are clear to auscultation and percussion. CARDIAC: S1, S2 normal rate and rhythm. There is no murmur. ABDOMEN: Soft and nontender. Bowel sounds are present. EXTREMITIES: There is no pedal edema. Peripheral pulses are present. Neurological examination: Patient's neurological examination is unchanged from yesterday. Patient does seem to be slightly lethargic this afternoon but is arousable and answers simple questions. She does not appear to have rest tremor on exam this morning. She is slightly confused today. She does follow simple commands. She does not have any evidence of rest tremor. - Labs CBC & Chem 7: 12/10/16 07:14 12/10/16 07:14 Labs: Abnormal Lab Results - Last 24 Hours (Table) 12/10/16 Range/Units 07:14 Glucose 132 H (74-99) mg/dL Total Protein 6.0 L (6.3-8.2) g/dL Albumin 3.1 L (3.5-5.0) g/dL Assessment and Plan (1) Parkinsonism Status: Acute Code(s): G20 - PARKINSON'S DISEASE (2) Dementia Status: Acute Code(s): F03.90 - UNSPECIFIED DEMENTIA WITHOUT BEHAVIORAL DISTURBANCE (3) Liver mass Status: Acute Code(s): R16.0 - HEPATOMEGALY, NOT ELSEWHERE CLASSIFIED (4) Failure to thrive Status: Acute Code(s): HKX6164 - Plan: This patient was seen in neurology consultation yesterday for evaluation of tremors. She had findings suggesting mild parkinsonism. She has been started on low-dose Sinemet. We will continue to monitor her progress on this dosage with adjustment as needed. Patient clinically states she is feeling better with less tremors today. She seems to have less tremors noticeable on examination today. She has less cogwheel rigidity in the upper extremities. She is being evaluated by oncology for right lobe liver mass. MRI of the liver has been completed today. Results of the MRI indicated multiple metastatic lesions to the liver. We are waiting further recommendations from oncology for further treatment and management. Oncology did have a discussion today with the patient's daughter will is her power of assistant hall director. Plan is now to move forward with discharge home with hospice care. This seems to be appropriate for the patient given her multiple complex medical issues. We will continue close neurological follow-up of this patient during this admission. She has a history of underlying dementia and has been started on Exelon patch. Her overall prognosis at this time remains very guarded.
[2016-12-10] MEDS: DOCUSATE 100 MG CAP PO SCH (20:43)
[2016-12-10] MEDS: QUEtiapine 25 MG TAB PO SCH (20:44)
[2016-12-10] MEDS ORDERED: MELATONIN 3 MG TABLET PO SCH (21:00)
[2016-12-11 07:29] VITALS: BP 137/83; PULSE 90; RESP 18; TEMP 100.4
[2016-12-11] MEDS: PRIMIDONE 50 MG TAB PO SCH (07:51)
[2016-12-11] MEDS: TRIMETHOBENZAMIDE 300 MG CAP PO SCH (07:54)
[2016-12-11] MEDS: CARBIDOPA-LEVODOPA 25-100 MG 1 EACH TAB PO SCH (07:54)
[2016-12-11] MEDS: PANTOPRAZOLE 40 MG TABLET PO SCH (07:54)
[2016-12-11] MEDS: amLODIPine 5 MG TAB PO SCH (07:55)
[2016-12-11] MEDS: ENOXAPARIN 60 MG/0.6 ML SYRINGE SQ SCH (07:55)
[2016-12-11] MEDS: CHOLECALCIFEROL 1,000 UNIT TAB PO SCH (07:55)
--- NOTE | 2016-12-11 09:41 | USB ---
Reason for exam: clinical finding. US Breast LT Left breast ultrasound includes all four quadrants, the retroareolar region and axilla. Finding demonstrates no cystic or solid lesion seen. Visibly, the left nipple is absent and there is a scar across the breast. Correlate clinically as to the patient's left breast surgical history. Scanned as in-patient. These results were verbally communicated with the patient and result sheet given to the patient on 12/08/16. ASSESSMENT: Negative, BI-RAD 1 RECOMMENDATION: Routine screening mammogram of both breasts.
[2016-12-11] MEDS: IBUPROFEN 600 MG TAB PO PRN (10:08)
[2016-12-11] MEDS: MULTIVITAMINS, THERA 1 EACH TAB PO SCH (11:33)
--- NOTE | 2016-12-11 13:24 | P.PN ---
Subjective Principal diagnosis: Metastatic cancer and bilateral pulmonary nodules 86-year-old female patient, quite debilitated, lives in an assisted living, with a remote history of breast cancer and a previous right mastectomy, was also known to have chronic tremors with been in and out of the hospital multiple occasions because of poorly controlled tremors. Yesterday she came into the emergency department for the same. She was seen by Dr. Ayad Marshall. No mention of any shortness of breath. A CT angios the chest was done and the bolus itself was suboptimal and no comments can be made as far as filling defects or pulmonary embolism. Nevertheless, the CAT scan showed a large 7 cm liver mass in addition to scattered bilateral pulmonary nodules suggestive of metastatic disease. The patient was placed on IV heparin the patient was admitted to the floor for further evaluation and treatment. I interviewed the patient and she denied being in being respiratory distress. No pleurisy. No cough or sputum production. No chest that is so wheezing. No hemoptysis. There is a questionable history of a DVT years back following a vulvar surgery. The patient is a poor historian. She is unable to recall of the details of her previous breast cancer. She denies however having any metastatic disease at this point. She states that she had a mastectomy and chemotherapy or hormonal therapy was not recommended back then. Not sure if she had a colonoscopy recently. Denies having any melanotic stools. The patient is hemodynamically stable at this point. She is resting comfortably in bed. D-dimer is elevated. No other complaints otherwise for now. Patient was seen today on 12/09/2016, and I reviewed the CT of the chest with the patient and her family at bedside. Pulmonary-latham, the patient seems to be doing relatively well, she does have history of smoking and possibly some component of underlying COPD, but the main issue on this admission seems to be an issue related to possible metastatic disease, primary at this point is not clear, but does not seem to be pulmonary in nature. Patient denies any shortness of breath, no cough, no wheezing, no chest pain. The patient was seen again today 12/10/2016 in follow-up on the regular medical floor. She is currently resting quite comfortably in bed. She did have Xanax ordered around the clock which was held this morning she does remain somewhat sedate. She does deny any worsening shortness of breath, cough or congestion. She is maintaining O2 saturations in the mid 90s on 2 L/m per nasal cannula. She is afebrile. Hemodynamically stable. Oncology is in the case regarding suspected recurrent breast cancer with metastasis to the liver. On 12/11/2016, patient is about the same, no major issues except plans are being made for possible hospice at home. And I believe this is very appropriate. Objective - Vital Signs Vital signs: Vital Signs Temp 100.4 F H 12/11/16 07:00 Pulse 90 12/11/16 07:00 Resp 18 12/11/16 07:00 BP 137/83 12/11/16 07:00 Pulse Ox 95 12/11/16 07:00 Intake & Output 12/10/16 12/11/16 12/11/16 18:59 06:59 18:59 Intake Total 250 Output Total 1300 Balance 250 -1300 Intake: Oral 250 Output: Urine 1300 Straight 650 Other: Voiding Method Diaper Diaper Incontinent Incontinent # Voids 2 2 - Exam Physical Exam GENERAL EXAM: Frail, cachectic. Comfortable in no apparent distress. HEAD: Normocephalic. EYES: Normal reaction of pupils, equal size. NOSE: Clear with pink turbinates. THROAT: No erythema or exudates. NECK: No masses, no JVD. CHEST: No chest wall deformity. LUNGS: Equal air entry with no crackles, wheeze, rhonchi or dullness. CVS: S1 and S2 normal with no audible murmurs, regular rhythm. ABDOMEN: Normal bowel sounds, no guarding or rigidity. Extremities: There is no significant peripheral edema. No clubbing, no cyanosis. Peripheral pulses are intact. - Labs CBC & Chem 7: 12/10/16 07:14 12/10/16 07:14 Assessment and Plan Plan: 1 metastatic cancer is suspected. The patient has a large 7 cm liver mass in addition to several subcentimeter pulmonary nodules 2 of them on the left and one on the right. MRI of the liver revealed innumerable solid enhancing lesions within the liver measuring up to 8.6 cm with concern for metastatic disease. Metastatic breast cancer is within the differential. Subsequent fine- needle aspirate if the patient is agreeable. 2 pulmonary nodules as mentioned above 3 doubtful pulmonary embolism. In fact CT angios the chest is a very poor contrast and does not characterize any emboli. If this is a concern, may need to repeat the CT angios the later stage 4 chronic tremors 5 remote history of a DVT of the left lower extremity 6 breast cancer with a previous right mastectomy 7 previous parathyroid gland resection for hyperparathyroidism Recommendation: Agree with discharge planning to hospice, we'll sign off and see when necessary. Time with Patient: Less than 30
--- NOTE | 2016-12-11 15:21 | P.DS ---
Providers Date of admission: 12/07/16 14:32 Expected date of discharge: 12/11/16 Attending physician: Fide Boateng Consults: 12/07/16 15:07 Consult Physician Urgent Consulting Provider: Brandon Rose Consult Reason/Comments: PE Do you want consulting provider notified?: Yes Consult Physician Urgent Consulting Provider: Anneliese Burkett Consult Reason/Comments: liver mass Do you want consulting provider notified?: Yes Consult Physician Urgent Consulting Provider: Elena Ramos Consult Reason/Comments: tremors Do you want consulting provider notified?: Yes Primary care physician: [facility] [place] Course: This is an 86-year-old female with a previous medical history significant for hypertension and hypertensive cardio vascular disease, hyperlipidemia, Alzheimer dementia, recurrent UTI, breast cancer status post right mastectomy, DVT of the left leg. Patient was brought into [facility] emergency center regarding tremor. D-dimer was 13.13, troponin was 0.050. Urinalysis was clear with nitrate and leukoesterase negative. CTA of the chest was nondiagnostic for pulmonary embolism. Extravasation of contrast was evident. Multiple bilateral pulmonary nodules greater in the upper lung field suspicious for metastatic disease. Large right hepatic mass. Patient was admitted to the selective care unit and has been seen in consultation by Dr. Ramos regarding tremors for 6 months mostly in her hand most likely secondary to parkinsonism and suggest trial of Sinemet. EEG was ordered and pending. Consult in place for Dr. Rose regarding possible PE and also oncology for liver mass. Patient is complaining of her right arm being sore and it bothers her when she tries to eat. She states she thinks it' s not from an injury but from old age. Patient did require straight cath to obtain urinalysis last evening. Patient does state that she lives alone at [facility] and uses a walker for ambulation. 12/09: Ultrasound of the left lower extremity is positive for DVT from the CFV to the proximal calf veins. No DVT in the right lower extremity. We will ask for clarification whether this is an old or new DVT. Heparin drip changed to subcu Lovenox. Patient was evaluated by Dr. Lorenzo he has ordered an MRI of the liver, alpha-fetoprotein and CA 19-9 are all pending. CEA is 3.5 Patient was evaluated by Dr. Rose with consideration for fine-needle aspiration of the liver if patient is agreeable. Pulmonary embolism is doubtful and suggest repeating the CT angiogram of the chest if the patient develops any respiratory distress in the future. Ultrasound of the breast remains pending. Patient's family does not want any aggressive treatment done at this point. We are waiting for MRI and ultrasound. Patient will be transferred to the [facility] floor. 12/10: MRI of the liver shows innumerable solid enhancing lesions within the liver measuring up to 8.6 cm concerning for metastatic disease. Metastatic breast cancer is within the differential. Diffuse colonic diverticulosis. Patient has been started on Exelon patch. EEG showed severe widespread diffuse disturbance in cerebral function. It failed to reveal any focal lateralized or epileptiform abnormalities. Discussed results with patient's power of divorce attorney her daughter Muna. Plan will be for her to be discharged tomorrow and they may pursue hospice as an outpatient when the follow-up with Dr. Malone. Breast ultrasound report is pending. 12/11: Patient's family has decided to consult hospice. Patient will be discharged back to [facility] with [facility] in place. Discharge diagnoses: 1. Right arm pain and tremor for which patient has had multiple ER visits secondary to possible Parkinson. 2. Elevated d-dimer with CTA of the chest inconclusive for PE. 2. Right hepatic mass and pulmonary nodules suspicious for metastatic disease from breast cancer. 3. Hand tremor evaluated by Dr. Ramos with concern for parkinsonism. 4. Alzheimer dementia that appears to be moderate to severe. 5. Hypertension and hypertensive cardiovascular disease. 6. Vitamin D deficiency. 7. History of breast cancer post right mastectomy. 8. History of hyperparathyroidism. Post parathyroidectomy. 8. DVT of the left lower extremity with history of the same. Discharge plan: [facility] with [facility]. Impression and plan of care have been directed as dictated by the signing physician. Nicolette Chirinos nurse practitioner acting as scribe for signing physician. Plan - Discharge Summary New Discharge Prescriptions: New Atropine Ophth Soln 1% 5Ml [Isopto Atropine 1% 5Ml] 2 drops PO Q4HR PRN #1 bottle PRN Reason: Secretions Carbidopa-Levodopa 25-100 mg [Sinemet 25-100 mg] 1 each PO BID #60 tab LORazepam ORAL CONC [Ativan Intensol] 2 mg PO Q4HR PRN #30 ml PRN Reason: Anxiety Melatonin 3 mg PO HS tab MORPHINE ORAL SOLN 20mg/mL [Roxanol Oral Soln Conc 20MG/ML] 5 mg PO Q4H PRN # 30 ml PRN Reason: Pain Discontinued Multivitamins, Thera [Multivitamin (formulary)] 1 tab PO DAILY Cholecalciferol [Vitamin D3] 1,000 unit PO DAILY No Action amLODIPine [Norvasc] 5 mg PO BID tab QUEtiapine [SEROquel] 12.5 mg PO HS tab Docusate [Colace] 100 mg PO HS Primidone [Mysoline] 50 mg PO BID #60 tab Trimethobenzamide HCl [Tigan] 300 mg PO DAILY Diazepam [Valium] 5 mg PO TID PRN #30 tab PRN Reason: Shivering ALPRAZolam [Xanax] 0.25 mg PO TID #10 tab Discharge Medication List amLODIPine [Norvasc] 5 mg PO BID tab 06/11/15 [Rx] QUEtiapine [SEROquel] 12.5 mg PO HS tab 08/06/16 [Rx] Docusate [Colace] 100 mg PO HS 09/01/16 [History] Primidone [Mysoline] 50 mg PO BID #60 tab 09/03/16 [Rx] Diazepam [Valium] 5 mg PO TID PRN #30 tab 10/21/16 [Rx] Trimethobenzamide HCl [Tigan] 300 mg PO DAILY 10/21/16 [History] ALPRAZolam [Xanax] 0.25 mg PO TID #10 tab 11/14/16 [Rx] Atropine Ophth Soln 1% 5Ml [Isopto Atropine 1% 5Ml] 2 drops PO Q4HR PRN #1 bottle 12/11/16 [Rx] Carbidopa-Levodopa 25-100 mg [Sinemet 25-100 mg] 1 each PO BID #60 tab 12/11/16 [Rx] LORazepam ORAL CONC [Ativan Intensol] 2 mg PO Q4HR PRN #30 ml 12/11/16 [Rx] MORPHINE ORAL SOLN 20mg/mL [Roxanol Oral Soln Conc 20MG/ML] 5 mg PO Q4H PRN #30 ml 12/11/16 [Rx] Melatonin 3 mg PO HS tab 12/11/16 [Rx] Follow up Appointment(s)/Referral(s): Thony Malone MD [Primary Care Provider] - As Needed Activity/Diet/Wound Care/Special Instructions: [facility] #[phone] Discharge Disposition: HOME WITH HOSPICE
== END 2016-12-11 14:48 | disposition hospice, home (50) | DRG 436 ==
LOC: EC 09:58 → 6SEL 14:32 → 4MS4W 12-09 10:43
PROVIDERS: ADMIT Family Medicine; ATTEND Family Medicine
DX: C78.7 Secondary malignant neoplasm of liver and intrahepatic bile duct (principal); C78.01 Secondary malignant neoplasm of right lung; I82.402 Acute embolism and thrombosis of unspecified deep veins of left lower extremity; C78.02 Secondary malignant neoplasm of left lung; I11.0 Hypertensive heart disease with heart failure; G20 Parkinson's disease; I50.9 Heart failure, unspecified; G30.9 Alzheimer's disease, unspecified; Z51.5 Encounter for palliative care; F02.80 Dementia in other diseases classified elsewhere, unspecified severity, without behavioral disturbance, psychotic disturbance, mood disturbance, and anxiety; E78.5 Hyperlipidemia, unspecified; F41.9 Anxiety disorder, unspecified; K57.30 Diverticulosis of large intestine without perforation or abscess without bleeding; F32.9 Major depressive disorder, single episode, unspecified; E21.3 Hyperparathyroidism, unspecified; R62.7 Adult failure to thrive; E55.9 Vitamin D deficiency, unspecified; Z85.3 Personal history of malignant neoplasm of breast; Z85.820 Personal history of malignant melanoma of skin; Z86.718 Personal history of other venous thrombosis and embolism; Z86.19 Personal history of other infectious and parasitic diseases; Z87.891 Personal history of nicotine dependence; Z87.440 Personal history of urinary (tract) infections; Z90.11 Acquired absence of right breast and nipple; Z98.49 Cataract extraction status, unspecified eye; Z79.899 Other long term (current) drug therapy
CPT/HCPCS: 36415; 71020; 71275; 74183; 80053; 81003; 82105; 82378; 82550; 82553; 83735; 84484; 85025; 85027; 85379; 85610; 85730; 86301; 93005; 93970; 94760; 95819; 96365; 96376; 99291